=== PATIENT | female | born 1970 | race African-American/Black ===

== ENCOUNTER 2016-03-04 18:47 | Emergency (ER) | payer SELFPAY ==
[~2016-03-04] VITALS: Ht 162.6 cm; Wt 98.0 kg
[~2016-03-04 18:47] MED LIST: CEPH-264 PO; CYCL10TA2 PO; HYDR-971 PO; METR500T PO; ONDA4TAB10 SL; OXYC-323 PO; PANT40TA3 PO; PRED20TA PO; TRAM-29 PO; VENTOLIN HFA18 GM INH
[2016-03-04] MEDS ORDERED: KETOROLAC TROMETHAMINE 60 MG/2 ML SYRINGE. IM ONE (19:30)
[2016-03-04] MEDS ORDERED: ORPHENADRINE CITRATE 60 MG/2 ML VIAL. IM ONE (19:30)
[2016-03-04 19:36] VITALS: BP 148/81
[2016-03-04] MEDS ORDERED: HYDR-971 PO (19:44)
[2016-03-04] MEDS ORDERED: CYCL10TA2 PO (19:44)
--- NOTE | 2016-03-04 19:44 | PHYS DOC ---
Past Medical History Past Medical History: Arthritis, Diabetes-Type II, Hypertension, Other Additional Past Medical Histor: eye problems, back fx, CHRONIC BACK PAIN Past Surgical History: , Tubal ligation Alcohol Use: None Drug Use: None Adult General Chief Complaint Chief Complaint: CHEST PAIN HPI HPI 45-year-old female with history of chronic back pain presents with mid upper back pain. She states it seems worse with movement and deep inspiration. She denies any chest pain or shortness of breath. She's not had any fever chills sweats cough congestion. She denies any nausea vomiting or diaphoresis. She states pain is been going on now for a couple of days. She states currently the pain is moderate in intensity and has been helped mildly with [id number] medication. [] Review of Systems Review of Systems Constitutional: Denies fever or chills [] Eyes: Denies change in visual acuity, redness, or eye pain [] HENT: Denies nasal congestion or sore throat [] Respiratory: Denies cough or shortness of breath [] Cardiovascular: No additional information not addressed in HPI [] GI: Denies abdominal pain, nausea, vomiting, bloody stools or diarrhea [] : Denies dysuria or hematuria [] Musculoskeletal: Per history of present illness [] Integument: Denies rash or skin lesions [] Neurologic: Denies headache, focal weakness or sensory changes [] Endocrine: Denies polyuria or polydipsia [] Current Medications Current Medications Current Medications Medications (Trade) Dose Ordered Sig/[facility] Start Time Stop Time Status Last Admin Dose Admin Ketorolac Tromethamine (Toradol Im) 60 mg 1X ONCE 03/04/16 19:30 03/04/16 19:31 DC 03/04/16 19:32 60 MG Orphenadrine Citrate (Norflex) 60 mg 1X ONCE 03/04/16 19:30 03/04/16 19:31 DC 03/04/16 19:32 60 MG Allergies Allergies Allergies Coded Allergies Type Severity Reaction Last Updated Verified ibuprofen Adverse Reaction Intermediate Nausea 11/07/15 Yes naproxen Adverse Reaction Intermediate Nausea 11/07/15 Yes Physical Exam Physical Exam Constitutional: Well developed, well nourished, no acute distress, non-toxic appearance. [] HENT: Normocephalic, atraumatic, bilateral external ears normal, oropharynx moist, no oral exudates, nose normal. [] Eyes: PERRLA, EOMI, conjunctiva normal, no discharge. [] Neck: Normal range of motion, no tenderness, supple, no stridor. [] Cardiovascular:Heart rate regular rhythm, no murmur [] Lungs & Thorax: Bilateral breath sounds clear to auscultation [] Abdomen: Bowel sounds normal, soft, no tenderness, no masses, no pulsatile masses. [] Skin: Warm, dry, no erythema, no rash. [] Back: Mild mid thoracic paraspinal muscle tenderness no midline tenderness. [] Extremities: No tenderness, no cyanosis, no clubbing, ROM intact, no edema. [] Neurologic: Alert and oriented X 3, normal motor function, normal sensory function, no focal deficits noted. [] Psychologic: Affect normal, judgement normal, mood normal. [] Current Patient Data Vital Signs Vital Signs Date Time Temp Pulse Resp B/P Pulse Ox O2 Delivery O2 Flow Rate FiO2 03/04/16 19:05 98.8 84 22 134/71 96 Room Air 98.8 EKG EKG [EKG: Normal sinus rhythm rate of [address]-T changes] Radiology/Procedures Radiology/Procedures [] Impressions: Chest x-ray: Negative exam mediastinum is normal as and interpreted by me Course & Med Decision Making Course & Med Decision Making Pertinent Labs and Imaging studies reviewed. (See chart for details) [ED course: Evaluation reveals a 45-year-old female in no significant distress with complaint of back pain. She was given Toradol and Norflex during her stay in the department which did help alleviate her symptoms. I will provide her with muscle relaxer and anti-inflammatory to take at home.] Dragon Disclaimer Dragon Disclaimer This electronic medical record was generated, in whole or in part, using a voice recognition dictation system. Departure Departure Impression: Primary Impression: Back pain Disposition: HOME, SELF-CARE Condition: IMPROVED Referrals: SANDEE JARVIS MD (PCP) Patient Instructions: Back Pain, Adult Additional Instructions: Thank you for allowing us to participate in your care today. Followup with your primary care physician in 3 days if your symptoms do not improve. Return to the emergency department you have any new or concerning findings. This should be evaluated by the primary care physician and any necessary consulting services for continued management within a few days after discharge. Return to emergency room if you have any new or concerning symptoms including but not limited to fever, chills, nausea, vomiting, intractable pain, any new rashes, chest pain, shortness of air, uncontrolled bleeding, difficulty breathing, and/or vision loss. You may have been prescribed medication that can change in your level of thinking and ability to operate machinery. These medications include hydrocodone and Ativan. Also, Benadryl has been known to do this as well. Be sure to check with your pharmacist and ask if the medications you've prescribed can affect your level of consciousness. I recommend not operating heavy machinery or driving while on medication such as these. Scripts Hydrocodone/Apap 5-325 ([place] 5-325 Tablet)1 Each Tablet1 Tab PO PRN Q6HRS PRN PAIN #20 TAB Prov:JENNIFER RODRIGUEZ DO 03/04/16 Cyclobenzaprine Hcl 10 Mg Tablet1 Tab PO TID PRN MUSCLE PAIN #30 TAB Prov:JENNIFER RODRIGUEZ DO 03/04/16 Problem Qualifiers Primary Impression: Back pain Back pain location: thoracic back pain Chronicity: acute Back pain laterality: unspecified Qualified Code: M54.6 - Pain in thoracic spine JENNIFER RODRIGUEZ DO Mar 04, 2016 19:44
--- NOTE | 2016-03-05 06:28 | EKG ---
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
--- NOTE | 2016-03-05 08:27 | RAD ---
Indication chest pain. A single view of the chest was obtained. Comparison is made to an examination 11/07/2015. The heart, pulmonary vessels and mediastinum appear normal. The lungs are clear. There has not been a significant change compared to the previous exam. IMPRESSION: No acute or focal process. No significant change
== END 2016-03-04 20:07 | disposition home or self-care (01) ==
LOC: ER 18:47
DX: M54.6 Pain in thoracic spine (principal); G89.29 Other chronic pain; E11.9 Type 2 diabetes mellitus without complications; I10 Essential (primary) hypertension; M19.90 Unspecified osteoarthritis, unspecified site; Z88.8 Allergy status to other drugs, medicaments and biological substances
CPT/HCPCS: 71010; 93005; 96372; 99284; J1885; J2360

== ENCOUNTER 2016-08-09 03:22 | Emergency (ER) | payer SELFPAY ==
[~2016-08-09] VITALS: Ht 162.6 cm; Wt 98.4 kg
[~2016-08-09 03:22] MED LIST changes: -TRAM-29 PO; +TRAM-48 PO
[2016-08-09 03:30] VITALS: BP 171/90
--- NOTE | 2016-08-09 04:50 | PHYS DOC ---
Past Medical History Past Medical History: Arthritis, Diabetes-Type II, Hypertension, Other Additional Past Medical Histor: eye problems, back fx, CHRONIC BACK PAIN Past Surgical History: , Tubal ligation Alcohol Use: None Drug Use: None Adult General Chief Complaint Chief Complaint: LOWER EXT PAIN [facility] HPI Patient is a 46 year old female who presents with gradual onset of right lower extremity pain and swelling involving her entire leg distal to her knee. States she has minimal leg pain in her left lower leg as well, but no swelling. Pain is achy, tight, constant, worse with walking. She denies injury, numbness, tingling, weakness, fever or chills, cough, dyspnea. Review of Systems Review of Systems Constitutional: Denies fever or chills [] Eyes: Denies change in visual acuity, redness, or eye pain [] HENT: Denies nasal congestion or sore throat [] Respiratory: Denies cough or shortness of breath [] Cardiovascular: No additional information not addressed in HPI [] GI: Denies abdominal pain, nausea, vomiting, bloody stools or diarrhea [] : Denies dysuria or hematuria [] Musculoskeletal: Denies back pain [] Integument: Denies rash or skin lesions [] Neurologic: Denies headache, focal weakness or sensory changes [] Endocrine: Denies polyuria or polydipsia [] Allergies Allergies Allergies Coded Allergies Type Severity Reaction Last Updated Verified ibuprofen Adverse Reaction Intermediate Nausea 11/07/15 Yes naproxen Adverse Reaction Intermediate Nausea 11/07/15 Yes Physical Exam Physical Exam Constitutional: Well developed, well nourished, no acute distress, non-toxic appearance. [] HENT: Normocephalic, atraumatic, bilateral external ears normal, oropharynx moist, nose normal. [] Eyes: PERRLA, EOMI. [] Neck: Normal range of motion, supple. [] Cardiovascular:Heart rate regular rhythm [] Lungs & Thorax: Bilateral breath sounds clear to auscultation [] Abdomen: Bowel sounds normal, soft, no tenderness. [] Skin: Warm, dry, no erythema, no rash. [] Back: Normal range of motion. [] Extremities: No joint tenderness, has mild general tenderness of her right leg distal to her knee without visual or palpable abnormality, has minimal tenderness of her left with no visual or palpable abnormality, ROM intact, no edema, no palpable cord. Soft compartments [] Neurologic: Alert and oriented X 3, normal motor function, normal sensory function, no focal deficits noted. [] Psychologic: Affect normal, judgement normal, mood normal. [] Current Patient Data Vital Signs Vital Signs Date Time Temp Pulse Resp B/P (MAP) Pulse Ox O2 Delivery O2 Flow Rate FiO2 08/09/16 03:30 98.3 80 18 171/90 (117) 99 Room Air 98.3 Radiology/Procedures Radiology/Procedures Ultrasound right lower extremity venous Doppler Negative for DVT. Course & Med Decision Making Course & Med Decision Making Pertinent Labs and Imaging studies reviewed. (See chart for details) Workup is unremarkable. Discussed supportive care. Return precautions given. She understands plan. Dragon Disclaimer Dragon Disclaimer This electronic medical record was generated, in whole or in part, using a voice recognition dictation system. Departure Departure Impression: Primary Impression: Leg pain Disposition: HOME, SELF-CARE Condition: STABLE Referrals: SANDEE JARVIS MD (PCP) Patient Instructions: Musculoskeletal Pain Additional Instructions: Take Tylenol as needed for pain. Follow-up with your primary care doctor. Return for any concerns. Problem Qualifiers Primary Impression: Leg pain Laterality: bilateral Qualified Codes: M79.604 - Pain in right leg; M79.605 - Pain in left leg Niranjan WILCOX MD Aug 09, 2016 04:50
--- NOTE | 2016-08-09 05:04 | RAD ---
Ultrasound right lower extremity Indication: Right leg pain for 4 days, no known injury. Technique: Multiple real-time grayscale images were obtained over the right lower extremity with use of color Doppler imaging and spectral analysis. Specifically, evaluation of the common femoral, superficial femoral, popliteal, posterior tibial and greater saphenous veins is performed. Static images were submitted for interpretation. Findings: There is no evidence for deep venous thrombosis. There is normal color fill-in on Doppler images. There is also normal response to compression of the deep venous system. Impression: No evidence for deep venous thrombosis. Electronically signed by: Rica Tafoya MD (08/09/2016 5:00 AM)
[2016-08-09 10:30] LABS: POTASSIUM ISTAT 3.5 mmol/L (3.5-5.0)
== END 2016-08-09 05:09 | disposition home or self-care (01) ==
LOC: ER 03:22
DX: M79.604 Pain in right leg (principal); R22.41 Localized swelling, mass and lump, right lower limb; E11.9 Type 2 diabetes mellitus without complications; I10 Essential (primary) hypertension; M19.90 Unspecified osteoarthritis, unspecified site; G89.29 Other chronic pain; Z98.51 Tubal ligation status; Z98.890 Other specified postprocedural states; Z88.6 Allergy status to analgesic agent
CPT/HCPCS: 80047; 93971; 99284-25

== ENCOUNTER 2016-08-15 06:51 | Emergency (ER) | payer SELFPAY ==
[~2016-08-15] VITALS: Ht 162.6 cm; Wt 98.4 kg
[2016-08-15 06:57] VITALS: BP 189/88
--- NOTE | 2016-08-15 07:14 | PHYS DOC ---
Past Medical History Past Medical History: Arthritis, Diabetes-Type II, Hypertension, Other Additional Past Medical Histor: eye problems, back fx, CHRONIC BACK PAIN Past Surgical History: , Tubal ligation Alcohol Use: None Drug Use: None Adult General Chief Complaint Chief Complaint: LOWER EXT PAIN HPI HPI Patient is a 46 year old female who presents with right corrales pain. Patient states that the ongoing for over a week. She's been seen in our ER and had a negative DVT study, she's been seen by her primary care doctor prescribed steroids. She states she was not compliant with her steroids because "I didn't think it was helping" taken for the last 2 days. She's taken oxycodone for pain if she takes this chronically for her back pain. She's been seen also at this month for low back pain and had an MRI. Patient denies any saddle sensory change, no bowel or bladder incontinence or retention. She states she is allergic to ibuprofen or naproxen because "I throw up". Pain in her corrales is medial aspect, no injury reported, no history DVT. Worsens when she walks on it. She's not attempted any ice. Review of Systems Review of Systems Constitutional: Denies fever or chills [] Eyes: Denies change in visual acuity, redness, or eye pain [] HENT: Denies nasal congestion or sore throat [] Respiratory: Denies cough or shortness of breath [] Cardiovascular: Nice chest pain GI: Denies abdominal pain, nausea, vomiting, bloody stools or diarrhea [] : Denies dysuria or hematuria [] Musculoskeletal: Denies new back pain Integument: Denies rash or skin lesions [] Neurologic: Denies headache, focal weakness or sensory changes [] Current Medications Current Medications Current Medications Medications (Trade) Dose Ordered Sig/[facility] Start Time Stop Time Status Last Admin Dose Admin Fentanyl Citrate (Fentanyl 2ml Vial) 75 mcg 1X ONCE 08/15/16 07:15 08/15/16 07:16 DC 08/15/16 07:39 75 MCG Ketorolac Tromethamine (Toradol Im) 60 mg 1X ONCE 08/15/16 07:15 08/15/16 07:16 DC 08/15/16 07:39 60 MG Allergies Allergies Allergies Coded Allergies Type Severity Reaction Last Updated Verified ibuprofen Adverse Reaction Intermediate Nausea 11/07/15 Yes naproxen Adverse Reaction Intermediate Nausea 9/22/16 Yes Physical Exam Physical Exam Constitutional: Well developed, well nourished, no acute distress, non-toxic appearance. [] HENT: Normocephalic, atraumatic, bilateral external ears normal, oropharynx moist, no oral exudates, nose normal. [] Eyes: PERRLA, EOMI, conjunctiva normal, no discharge. [] Neck: Normal range of motion, no tenderness, supple, no stridor. [] Cardiovascular:Heart rate regular with regular rhythm Lungs & Thorax: No respiratory distress Skin: Warm, dry, no erythema, no rash. [] Back: No tenderness, no CVA tenderness. [] Extremities: Bilateral lower extremities are nonedematous, no tenderness to palpation, no palpable cord, no erythema, no edema, full range of motion, knee has no effusion, no increased warmth, no varus or valgus instability, negative Melani's, negative anterior and posterior drawer, ankle joint appears normal, full range of motion, DP pulse 2+, negative Homans bilaterally Neurologic: Alert and oriented X 3, normal motor function, normal sensory function, no focal deficits noted. [] Current Patient Data Vital Signs Vital Signs Date Time Temp Pulse Resp B/P (MAP) Pulse Ox O2 Delivery O2 Flow Rate FiO2 08/15/16 07:39 18 08/15/16 06:57 98.1 71 98 Room Air 98.1 Lab Values Laboratory Tests Test 08/15/16 07:35 Glucose (Fingerstick) 121 mg/dL (70-99) H EKG EKG [] Radiology/Procedures Radiology/Procedures [] Course & Med Decision Making Course & Med Decision Making Pertinent Labs and Imaging studies reviewed. (See chart for details) Reviewed patient's prior medical records. Patient has symptoms consistent with chin splints, recommended ice packs and anti-inflammatories, although patient thinks she is allergic because she started up before when she's taken. Recommended the patient continue her steroids that were prescribed by primary care doctor and continue follow-up with her PCP. Dragon Disclaimer Dragon Disclaimer This electronic medical record was generated, in whole or in part, using a voice recognition dictation system. Departure Departure Impression: Primary Impression: Corrales splints Disposition: 01 HOME, SELF-CARE Condition: STABLE Referrals: SANDEE JARVIS MD (PCP) Patient Instructions: Corrales Splints JEROME DELA CRUZ MD Aug 15, 2016 07:14
[2016-08-15] MEDS ORDERED: KETOROLAC TROMETHAMINE 60 MG/2 ML INJ. IM ONE (07:15)
[2016-08-15] MEDS ORDERED: fentaNYL PF VIAL 100 MCG/2 ML VIAL IM ONE (07:15)
== END 2016-08-15 08:36 | disposition home or self-care (01) ==
LOC: ER 06:51
DX: M79.604 Pain in right leg (principal); E11.9 Type 2 diabetes mellitus without complications; I10 Essential (primary) hypertension; G89.29 Other chronic pain; M19.90 Unspecified osteoarthritis, unspecified site; Z98.51 Tubal ligation status; Z98.890 Other specified postprocedural states; Z88.6 Allergy status to analgesic agent
CPT/HCPCS: 82962; 96372; 99284; J1885; J3010

== ENCOUNTER 2016-09-24 00:30 | Emergency (ER) | payer BC ==
[~2016-09-24] VITALS: Ht 162.6 cm; Wt 98.4 kg
[2016-09-24 00:59] LABS: BILIRUBIN,URINE NEGATIVE (NEG); GLUCOSE,URINE NEGATIVE (NEG); NITRITE,URINE NEGATIVE (NEG); PROTEIN,URINE NEGATIVE (NEG-TRACE); UROBILINOGEN,URINE 0.2 mg/dL (0.2 mg/dL)
[2016-09-24 01:12] LABS: BACTERIA,URINE FEW /HPF (0-FEW); SQUAMOUS EPITHELIAL CELL,UR MOD /LPF; WBC,URINE OCC /HPF (0-4); YEAST,URINE PRESENT /HPF
[2016-09-24] MEDS ORDERED: KETOROLAC 15 MG/ML VIAL. IV ONE (01:30)
[2016-09-24] MEDS ORDERED: IV NORMAL SALINE 1000ML BAG 1,000 ML IV ONE (01:30)
[2016-09-24] MEDS ORDERED: HYDROmorphone 2 MG/ML VIAL IV ONE (01:30)
[2016-09-24] MEDS ORDERED: ONDANSETRON PF 4 MG/2 ML VIAL. IV ONE (01:30)
[2016-09-24 01:44] LABS: BASO # 0.1 x10^3/uL (0.0-0.2); BASO % 1 % (0-3); EOS % 3 % (0-3); HEMATOCRIT 39.7 % (36.0-47.0); HEMOGLOBIN 13.3 g/dL (12.0-15.5); LYMPH # 4.1 x10^3/uL (1.0-4.8); LYMPH % 44 % (24-48); MEAN CORPUSCULAR HEMOGLOBIN 31 pg (25-35); MEAN CORPUSCULAR HGB CONC 34 g/dL (31-37); MEAN CORPUSCULAR VOLUME 91 fL (79-100); MONO % 7 % (0-9); NEUT % 46 % (31-73); PLATELET COUNT 300 x10^3/uL (140-400); RED BLOOD COUNT 4.35 x10^6/uL (3.50-5.40); RED CELL DISTRIBUTION WIDTH 14.1 % (11.5-14.5); WHITE BLOOD COUNT 9.5 x10^3/uL (4.0-11.0)
[2016-09-24 01:51] LABS: CALCIUM 8.9 mg/dL (8.5-10.1); CREATININE 0.9 mg/dL (0.6-1.0); GFR 80.9; POTASSIUM 3.3 mmol/L (3.5-5.1)
[2016-09-24 01:57] LABS: ALBUMIN 3.5 g/dL (3.4-5.0); ALBUMIN/GLOBULIN RATIO 0.9 (1.0-1.7); TOTAL BILIRUBIN 0.2 mg/dL (0.2-1.0); TOTAL PROTEIN 7.5 g/dL (6.4-8.2)
[2016-09-24 02:10] LABS: NEG OBC UR NEG; POS OBC UR POS
--- NOTE | 2016-09-24 02:41 | RAD ---
INDICATION: right flank and abd pain COMPARISON: None. TECHNIQUE: Axial CT images were obtained through the abdomen and pelvis without intravenous contrast. Limited assessment of solid organ structures and vasculature secondary to lack of intravenous contrast. One or more of the following individualized dose reduction techniques were utilized for this examination: 1. Automated exposure control; 2. Adjustment of the mA and/or kV according to patient size; 3. Use of iterative reconstruction technique. FINDINGS: Abdomen: Chest Base: Sub-4 mm right lung base nodule. Vessels: Moderate calcific atherosclerosis. Liver/Biliary: 10 mm low-attenuation lesion near hepatic dome. Additional left lobe of liver 10 mm low-attenuation lesion. Pancreas: Poor evaluation of pancreas without contrast. Spleen: Normal. Kidneys/Adrenal: 3 mm nonobstructive right renal stone. No hydronephrosis. GI: Colonic diverticulosis. No definite periappendiceal inflammation. No dilated loops of bowel to suggest obstruction. Small fat-containing umbilical hernia. Pelvis: Bladder: No definite adjacent inflammation. There is a possible congenital defect of the T11 vertebral body. Pars defects at L4 with anterolisthesis of L4 on 5 IMPRESSION: 1. No evidence of bowel obstruction, appendicitis or hydronephrosis. There are multiple calcifications within the pelvis but suspect that these are phleboliths rather than ureter stone given lack of more proximal hydronephrosis. 2. Nonobstructive right renal stone. 3. There are couple of low-attenuation liver lesions. This is a commonly seen finding and could be from benign causes such as small cyst or hemangioma but incompletely characterized on CT. If further information is desired focused ultrasound could be obtained to assess whether these are solid or cystic. 4. Sub-4 mm right lung base nodule. 5. The uterus appears enlarged. 6. 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 There is also neural foraminal stenosis at this level. Fleischner Society recommendation for solid lung nodule follow up. (Radiology 2005; 237; 395-400): In a low risk patient: <4mm - No follow up required. >4-6mm- 12 month follow up, if unchanged, no further follow up. >6-8mm- 6-12 month follow up, then at 18-24 months if no change. >8mm- 3, 9, 24 month follow up or consideration of PET/CT. In a high risk patient (history of smoking or other known risk factors): <4mm - 12 month follow up, if unchanged then no further follow up. >4-6mm- 6-12 month follow up, then at 18-24 months if no change. >6-8mm- 3-6 month follow up, then at 9-12 months and 24 months if no change >8mm- Same as for low risk patient. Electronically signed by: Jeancarlos Patel MD (09/24/2016 2:38 AM) [id number]
[2016-09-24 02:49] VITALS: BP 119/74
[2016-09-24] MEDS ORDERED: TRAM-48 PO (02:53)
--- NOTE | 2016-09-24 02:53 | PHYS DOC ---
Past Medical History Past Medical History: Arthritis, Diabetes-Type II, Hypertension, Other Additional Past Medical Histor: eye problems, back fx, CHRONIC BACK PAIN Past Surgical History: , Tubal ligation Alcohol Use: None Drug Use: None Adult General Chief Complaint Chief Complaint: PELVIC PAIN HPI HPI Patient is a 46 year old female who presents to the ER today complaining of pain to the suprapubic region. Patient reports that she's had pain in that area for 3 days now radiating down to her legs and to her back on the right side. Patient denies any fevers shakes chills vomiting diarrhea dysuria or urgency. She does complain of frequency. Patient's last menstrual period was in February 2016. Patient has any vaginal discharge or bleeding. Patient has any cough or URI symptoms. Patient reports approximately 6 PM she ate chicken and broccoli. Patient reports hypertension and diabetes. Patient denies any liver longer kidney problems. Patient reports she smokes no alcohol or drugs. Patient is not allergic to any medications. Patient reports that ibuprofen upsets her stomach. Patient reports she's had a prior . Review of systems: Constitutional: fever andr chills [] Eyes: Denies change in visual acuity, redness, or eye pain [] All other review systems are negative except as documented in the history of present illness portion. Physical exam: Constitutional: Well developed, well nourished, no acute distress, non-toxic appearance. [] HENT: Normocephalic, atraumatic, bilateral external ears normal, oropharynx moist, no oral exudates, nose normal. [] Eyes: PERRLA, EOMI, conjunctiva normal, no discharge. [] Neck: Normal range of motion, no tenderness, supple, no stridor. [] Cardiovascular:Heart rate regular rhythm, Lungs & Thorax: Bilateral breath sounds clear to auscultation [] Abdomen: Bowel sounds normal, soft, no tenderness, no masses, no pulsatile masses. [] Skin: Warm, dry, no erythema, no rash. [] Back: No tenderness, no CVA tenderness. [] Extremities: No tenderness, no cyanosis, no clubbing, ROM intact, no edema. [] Neurologic: Alert and oriented X 3, normal motor function, normal sensory function, no focal deficits noted. [] Psychologic: Affect normal, judgement normal, mood normal. [] Patient's physical exam is significant for some tenderness to palpation to her suprapubic area. Patient is some tenderness in her right and left lower quadrant. Patient has no rebound or guarding.Abdomen soft nontender no rebound or guarding NABS. No Brito sign, no tenderness to McBurney's point. Patient not present with any signs or symptoms of be consistent with an acute surgical abdomen. Patient's ER workup was significant for normal CAT scan. There was no acute pathology to explain her pain. Patient's labs including a CBC CMP and UA were all within normal limits. Patient will be discharged home in stable condition on Ultram and instructed to follow-up with her primary care doctor in 1-2 days for reevaluation. Current Medications Current Medications Current Medications Medications (Trade) Dose Ordered Sig/Isis Start Time Stop Time Status Last Admin Dose Admin Hydromorphone HCl (Dilaudid) 0.5 mg 1X ONCE 09/24/16 01:30 09/24/16 01:32 DC 09/24/16 01:38 0.5 MG Ketorolac Tromethamine (Toradol) 15 mg 1X ONCE 09/24/16 01:30 09/24/16 01:32 DC 09/24/16 01:40 15 MG Ondansetron HCl (Zofran) 4 mg 1X ONCE 09/24/16 01:30 09/24/16 01:32 DC 09/24/16 01:40 4 MG Sodium Chloride 1,000 ml @ 1,000 mls/hr 1X ONCE 09/24/16 01:30 09/24/16 02:29 DC 09/24/16 01:40 1,000 MLS/HR Allergies Allergies Allergies Coded Allergies Type Severity Reaction Last Updated Verified ibuprofen Adverse Reaction Intermediate Nausea 11/07/15 Yes naproxen Adverse Reaction Intermediate Nausea 11/07/15 Yes Current Patient Data Vital Signs Vital Signs Date Time Temp Pulse Resp B/P (MAP) Pulse Ox O2 Delivery O2 Flow Rate FiO2 09/24/16 01:38 18 95 Room Air 09/24/16 00:45 98.4 89 135/65 (88) 98.4 Lab Values Laboratory Tests Test 09/24/16 00:40 09/24/16 01:36 Urine Collection Type Unknown Urine Color Yellow Urine Clarity Clear Urine pH 6.0 Urine Specific [place] 1.010 Urine Protein Negative mg/dL (NEG-TRACE) Urine Glucose (UA) Negative mg/dL (NEG) Urine Ketones (Stick) Negative mg/dL (NEG) Urine Blood Small (NEG) Urine Nitrite Negative (NEG) Urine Bilirubin Negative (NEG) Urine Urobilinogen Dipstick 0.2 mg/dL (0.2 mg/dL) Urine Leukocyte Esterase Negative (NEG) Urine RBC 6-10 /HPF (0-2) Urine WBC Occ /HPF (0-4) Urine Squamous Epithelial Cells Mod /LPF Urine Bacteria Few /HPF (0-FEW) Urine Mucus Slight /LPF Urine Yeast Present /HPF Urine Test Negative (NEG) White Blood Count 9.5 x10^3/uL (4.0-11.0) Red Blood Count 4.35 x10^6/uL (3.50-5.40) Hemoglobin 13.3 g/dL (12.0-15.5) Hematocrit 39.7 % (36.0-47.0) Mean Corpuscular Volume 91 fL (79-100) Mean Corpuscular Hemoglobin 31 pg (25-35) Mean Corpuscular Hemoglobin Concent 34 g/dL (31-37) Red Cell Distribution Width 14.1 % (11.5-14.5) Platelet Count 300 x10^3/uL (140-400) Neutrophils (%) (Auto) 46 % (31-73) Lymphocytes (%) (Auto) 44 % (24-48) Monocytes (%) (Auto) 7 % (0-9) Eosinophils (%) (Auto) 3 % (0-3) Basophils (%) (Auto) 1 % (0-3) Neutrophils # (Auto) 4.4 x10^3uL (1.8-7.7) Lymphocytes # (Auto) 4.1 x10^3/uL (1.0-4.8) Monocytes # (Auto) 0.6 x10^3/uL (0.0-1.1) Eosinophils # (Auto) 0.2 x10^3/uL (0.0-0.7) Basophils # (Auto) 0.1 x10^3/uL (0.0-0.2) Sodium Level 139 mmol/L (136-145) Potassium Level 3.3 mmol/L (3.5-5.1) L Chloride Level 103 mmol/L (98-107) Carbon Dioxide Level 27 mmol/L (21-32) Anion Gap 9 (6-14) Blood Urea Nitrogen 7 mg/dL (7-20) Creatinine 0.9 mg/dL (0.6-1.0) Estimated GFR (Cockcroft-Gault) 80.9 BUN/Creatinine Ratio 8 (6-20) Glucose Level 108 mg/dL (70-99) H Calcium Level 8.9 mg/dL (8.5-10.1) Total Bilirubin 0.2 mg/dL (0.2-1.0) Aspartate Amino Transferase (AST) 20 U/L (15-37) Alanine Aminotransferase (ALT) 24 U/L (14-59) Alkaline Phosphatase 52 U/L (46-116) Total Protein 7.5 g/dL (6.4-8.2) Albumin 3.5 g/dL (3.4-5.0) Albumin/Globulin Ratio 0.9 (1.0-1.7) L Lipase 49 U/L (73-393) L Laboratory Tests 09/24/16 01:36 Laboratory Tests 09/24/16 01:36 EKG EKG [] Radiology/Procedures Radiology/Procedures [] Course & Med Decision Making Course & Med Decision Making Pertinent Labs and Imaging studies reviewed. (See chart for details) [] Dragon Disclaimer Dragon Disclaimer This electronic medical record was generated, in whole or in part, using a voice recognition dictation system. Departure Departure Impression: Primary Impression: Abdominal pain Disposition: 01 HOME, SELF-CARE Condition: IMPROVED Referrals: UNKNOWN PCP NAME (PCP) Patient Instructions: Abdominal Pain (Nonspecific) Scripts Tramadol Hcl (ULTRAM) 50 Mg Tablet 1 TAB PO Q6HRS, #10 TAB Prov: SAL COLES MD 09/24/16 SAL COLES MD Sep 24, 2016 02:53
== END 2016-09-24 03:08 | disposition home or self-care (01) ==
LOC: ER 00:30
DX: R10.31 Right lower quadrant pain (principal); R10.32 Left lower quadrant pain; R35.0 Frequency of micturition; M19.90 Unspecified osteoarthritis, unspecified site; E11.9 Type 2 diabetes mellitus without complications; I10 Essential (primary) hypertension; G89.29 Other chronic pain; F17.200 Nicotine dependence, unspecified, uncomplicated; Z88.6 Allergy status to analgesic agent; Z88.8 Allergy status to other drugs, medicaments and biological substances; Z98.890 Other specified postprocedural states; Z98.51 Tubal ligation status
CPT/HCPCS: 36415; 74176; 80053; 81001; 81025; 83690; 85027; 96361; 96374; 96375; 99285; J1170; J1885; J2405; J7030

== ENCOUNTER 2016-12-29 22:55 | Emergency (ER) | payer BC ==
[~2016-12-29] VITALS: Ht 162.6 cm; Wt 95.3 kg
[2016-12-29 23:17] VITALS: BP 139/77
[2016-12-29] MEDS ORDERED: SULF1TAB24 PO (23:40)
--- NOTE | 2016-12-29 23:40 | PHYS DOC ---
Past Medical History Past Medical History: Arthritis, Diabetes-Type II, Hypertension, Other Additional Past Medical Histor: eye problems, back fx, CHRONIC BACK PAIN Past Surgical History: , Tubal ligation Alcohol Use: None Drug Use: None Adult General Chief Complaint Chief Complaint: NOSE FOREIGN BODY HPI HPI Patient is a 46 year old female who presents here today complaining of pain in her left nostril. Patient is concerned about might have crawled up there. Patient reports that she has swelling to her left nasolabial fold times one day. Patient has a history of hypertension diabetes. Patient denies any other symptomatology. Patient denies any fevers shakes chills nausea vomiting diarrhea chest pain shortness of breath cough cold rhinorrhea. Patient reports she has an allergy to ibuprofen and Naprosyn. Patient per she smokes no alcohol or drugs. Review of systems: Constitutional: Denies fever or chills Eyes: Denies change in visual acuity, redness, or eye pain HENT: Denies nasal congestion or sore throat All other systems were reviewed and found to be within normal limits, except as documented in this note. Physical exam: Constitutional: Well developed, well nourished, no acute distress, non-toxic appearance. HENT: Normocephalic, atraumatic, bilateral external ears normal Eyes: PERRLA, EOMI, conjunctiva normal, no discharge. Neck: Normal range of motion, no tenderness, supple, no stridor. Cardiovascular:Heart rate regular rhythm Lungs & Thorax: Bilateral breath sounds clear to auscultation Abdomen: Bowel sounds normal, soft, no tenderness, no masses, no pulsatile masses. Skin: Warm, dry, no erythema, no rash. Back: No tenderness, no CVA tenderness. Extremities: No tenderness, no cyanosis, no clubbing, ROM intact, no edema. Neurologic: Alert and oriented X 3, normal motor function, normal sensory function, no focal deficits noted. Psychologic: Affect normal, judgement normal, mood normal. Assessment and plan: 46-year-old female with foreign body sensation to her left naris. Patient's left naris was unremarkable. There is some mild erythema and possible soft tissue swelling to the lateral aspect of her left naris. There is no fluctuance or abscess that I can visualize. Patient's symptoms are highly consistent with a possible small microabscesses/cellulitis to her inner mucosa of her left naris. Patient be started on Bactrim for possible MRSA. Current Medications Current Medications Current Medications Medications (Trade) Dose Ordered Sig/Isis Start Time Stop Time Status Last Admin Dose Admin Trimethoprim/ Sulfamethoxazole (Bactrim Ds) 2 tab 1X ONCE 12/30/16 00:00 12/30/16 00:01 DC 12/30/16 00:02 2 TAB Allergies Allergies Allergies Coded Allergies Type Severity Reaction Last Updated Verified ibuprofen Adverse Reaction Intermediate Nausea 11/07/15 Yes naproxen Adverse Reaction Intermediate Nausea 11/07/15 Yes Current Patient Data Vital Signs Vital Signs Date Time Temp Pulse Resp B/P (MAP) Pulse Ox O2 Delivery O2 Flow Rate FiO2 12/29/16 23:17 98.3 94 18 139/77 (97) 96 Room Air 98.3 EKG EKG [] Radiology/Procedures Radiology/Procedures [] Course & Med Decision Making Course & Med Decision Making Pertinent Labs and Imaging studies reviewed. (See chart for details) [] Dragon Disclaimer Dragon Disclaimer This electronic medical record was generated, in whole or in part, using a voice recognition dictation system. Departure Departure Impression: Primary Impression: Cellulitis Disposition: HOME, SELF-CARE Condition: IMPROVED Referrals: LYNN DE LEON MD (PCP) Patient Instructions: Skin Infections Scripts Sulfamethoxazole/Trimethoprim (BACTRIM DS TABLET) 1 Each Tablet 2 TAB PO BID for 10 Days, TAB Prov: SAL COLES MD 12/29/16 SAL COLES MD Dec 29, 2016 23:40
[2016-12-30] MEDS ORDERED: SMZ/TMP 800/160MG TABLET. PO ONE
== END 2016-12-30 00:10 | disposition home or self-care (01) ==
LOC: ER 22:55
DX: J34.0 Abscess, furuncle and carbuncle of nose (principal); G89.29 Other chronic pain; E11.9 Type 2 diabetes mellitus without complications; I10 Essential (primary) hypertension; Z88.5 Allergy status to narcotic agent; Z88.8 Allergy status to other drugs, medicaments and biological substances
CPT/HCPCS: 99283

== ENCOUNTER 2017-02-21 21:48 | Emergency (ER) | payer OTHER, BC ==
[2017-02-21] MEDS: ONDANSETRON ODT 4 MG TAB.RAPDIS. PO (23:02)
[2017-02-21 23:03] LABS: INFLUENZA A PATIENT NEGATIVE (NEGATIVE); INFLUENZA B PATIENT NEGATIVE (NEGATIVE); OBC FLU VALID
[2017-02-21] MEDS: BENZONATATE 100 MG CAPSULE. PO (23:03)
[2017-02-21] MEDS: ACETAMINOPHEN 500 MG TABLET PO (23:03)
== END 2017-02-21 23:30 | disposition home or self-care (01) ==
LOC: ER 21:48
DX: B34.9 Viral infection, unspecified (principal); J40 Bronchitis, not specified as acute or chronic; E11.9 Type 2 diabetes mellitus without complications; I10 Essential (primary) hypertension; G89.29 Other chronic pain; F17.210 Nicotine dependence, cigarettes, uncomplicated; Z88.6 Allergy status to analgesic agent
CPT/HCPCS: 87804; 87804-59; 99284; Q0162

== ENCOUNTER 2017-03-03 07:11 | Emergency (ER) | payer SELFPAY, OTHER | END 2017-03-03 07:57 | disposition home or self-care (01) | LOC: ER 07:11 | DX: S10.96XA Insect bite of unspecified part of neck, initial encounter (principal); E11.40 Type 2 diabetes mellitus with diabetic neuropathy, unspecified; I10 Essential (primary) hypertension; F17.210 Nicotine dependence, cigarettes, uncomplicated; Z88.6 Allergy status to analgesic agent; W57.XXXA Bitten or stung by nonvenomous insect and other nonvenomous arthropods, initial encounter; Y93.89 Activity, other specified; Y92.89 Other specified places as the place of occurrence of the external cause; Y99.8 Other external cause status | CPT/HCPCS: 99281 ==

== ENCOUNTER 2017-03-20 17:41 | Emergency (ER) | payer OTHER ==
[2017-03-20] MEDS: ACETAMINOPHEN 500 MG TABLET PO ×2 (18:35)
== END 2017-03-20 19:03 | disposition home or self-care (01) ==
LOC: ER 17:41
DX: S60.222A Contusion of left hand, initial encounter (principal); M54.6 Pain in thoracic spine; E11.40 Type 2 diabetes mellitus with diabetic neuropathy, unspecified; I10 Essential (primary) hypertension; Z88.6 Allergy status to analgesic agent; V47.5XXA Car driver injured in collision with fixed or stationary object in traffic accident, initial encounter; Y93.I9 Activity, other involving external motion; Y92.410 Unspecified street and highway as the place of occurrence of the external cause; Y99.8 Other external cause status
CPT/HCPCS: 72072; 73130; 99284

== ENCOUNTER 2017-07-04 12:10 | Emergency (ER) | payer OTHER ==
[2017-07-04] MEDS: ASPIRIN CHEWABLE 81 MG TABLET. PO (12:55)
[2017-07-04 13:14] LABS: ADD MAN DIFF? NO
[2017-07-04 13:26] LABS: BASO % 0 % (0-3); EOS # 0.1 x10^3/uL (0.0-0.7); EOS % 1 % (0-3); HEMATOCRIT 42.3 % (36.0-47.0); HEMOGLOBIN 14.8 g/dL (12.0-15.5); LYMPH # 2.5 x10^3/uL (1.0-4.8); LYMPH % 33 % (24-48); MEAN CORPUSCULAR HEMOGLOBIN 32 pg (25-35); MEAN CORPUSCULAR HGB CONC 35 g/dL (31-37); MEAN CORPUSCULAR VOLUME 91 fL (79-100); MONO # 0.4 x10^3/uL (0.0-1.1); MONO % 6 % (0-9); NEUT # 4.4 x10^3uL (1.8-7.7); NEUT % 59 % (31-73); PLATELET COUNT 311 x10^3/uL (140-400); RED BLOOD COUNT 4.65 x10^6/uL (3.50-5.40); RED CELL DISTRIBUTION WIDTH 13.9 % (11.5-14.5); WHITE BLOOD COUNT 7.4 x10^3/uL (4.0-11.0)
[2017-07-04 13:33] LABS: ANION GAP 9 (6-14); BLOOD UREA NITROGEN 8 mg/dL (7-20); BUN/CREATININE RATIO 9 (6-20); CALCIUM 9.5 mg/dL (8.5-10.1); CARBON DIOXIDE 27 mmol/L (21-32); CHLORIDE 106 mmol/L (98-107); CREATININE 0.9 mg/dL (0.6-1.0); GFR 80.5; GLUCOSE 106 mg/dL (70-99); POTASSIUM 3.7 mmol/L (3.5-5.1); SODIUM 142 mmol/L (136-145)
[2017-07-04 13:39] LABS: ALBUMIN 3.6 g/dL (3.4-5.0); ALBUMIN/GLOBULIN RATIO 0.9 (1.0-1.7); ALK PHOS 61 U/L (46-116); ALT (SGPT) 18 U/L (14-59); AST (SGOT) 16 U/L (15-37); TOTAL BILIRUBIN 0.3 mg/dL (0.2-1.0); TOTAL PROTEIN 7.6 g/dL (6.4-8.2)
[2017-07-04 13:42] LABS: TROPONINI < 0.017 ng/mL (0.000-0.055)
== END 2017-07-04 14:10 | disposition home or self-care (01) ==
LOC: ER 12:10
DX: R07.89 Other chest pain (principal); M79.632 Pain in left forearm; G89.29 Other chronic pain; E11.40 Type 2 diabetes mellitus with diabetic neuropathy, unspecified; I10 Essential (primary) hypertension; F17.210 Nicotine dependence, cigarettes, uncomplicated; F12.10 Cannabis abuse, uncomplicated; Z79.82 Long term (current) use of aspirin; Z88.5 Allergy status to narcotic agent; Z88.8 Allergy status to other drugs, medicaments and biological substances
CPT/HCPCS: 36415; 71045; 80053; 84484; 85025; 93005; 99285

== ENCOUNTER 2017-08-07 23:29 | Emergency (ER) | payer OTHER ==
[2017-08-08] MEDS: BUPIVACAINE 0.5% 50 ML VIAL. IJ (00:30)
[2017-08-08] MEDS: LIDOCAINE 1% PF 30 ML VIAL. INJ (00:30)
== END 2017-08-08 00:55 | disposition home or self-care (01) ==
LOC: ER 23:29
DX: K08.89 Other specified disorders of teeth and supporting structures (principal); E78.00 Pure hypercholesterolemia, unspecified; I10 Essential (primary) hypertension; E11.40 Type 2 diabetes mellitus with diabetic neuropathy, unspecified; F12.10 Cannabis abuse, uncomplicated; G89.29 Other chronic pain; Z88.5 Allergy status to narcotic agent; Z88.8 Allergy status to other drugs, medicaments and biological substances
CPT/HCPCS: 64450; 99284-25; J3490

== ENCOUNTER 2017-10-18 04:45 | Emergency (ER) | payer OTHER ==
[~2017-10-18] VITALS: Ht 162.6 cm; Wt 83.9 kg
[~2017-10-18 04:45] MED LIST changes: +ACET-704 PO; +BENZ100C PO; +DOXY100T PO; +SULF1TAB24 PO
--- NOTE | 2017-10-18 05:13 | PHYS DOC ---
Past Medical History Past Medical History: Diabetes-Type II, High Cholesterol, Hypertension Additional Past Medical Histor: NEUROPATHY, chronic back pain, SLEEP APNEA Past Surgical History: Alcohol Use: Occasionally Drug Use: Marijuana Adult General Chief Complaint Chief Complaint: WEAKNESS/GENERALIZED HPI HPI Patient is a 47-year-old female who presents tonight secondary to generalized weakness. Patient states that her diabetes is acting up. She states when her blood sugar gets down to 99 she doesn't feel well. She has had some nausea but no vomiting. She denies any fever chills or sweats. She readily admits that she does not control her blood sugar or even know what her hemoglobin A1c is at this time. This causes her to get very nervous. She is also concerned that her blood pressure is elevated. She denies any headache or lateralizing neurologic weakness.[] Review of Systems Review of Systems Constitutional: Denies fever or chills, reports generalized weakness [] Eyes: Denies change in visual acuity, redness, or eye pain [] HENT: Denies nasal congestion or sore throat [] Respiratory: Denies cough or shortness of breath [] Cardiovascular: No additional information not addressed in HPI [] GI: Denies abdominal pain, nausea, vomiting, bloody stools or diarrhea [] : Denies dysuria or hematuria [] Musculoskeletal: Denies back pain or joint pain [] Integument: Denies rash or skin lesions [] Neurologic: Denies headache, focal weakness or sensory changes [] Endocrine: Poorly controlled diabetes[] All other systems were reviewed and found to be within normal limits, except as documented in this note. Current Medications Current Medications Current Medications Medications (Trade) Dose Ordered Sig/Isis Start Time Stop Time Status Last Admin Dose Admin Potassium Chloride (KCl Oral Soln) 40 meq 1X ONCE 10/18/17 07:00 10/18/17 07:01 Allergies Allergies Allergies Coded Allergies Type Severity Reaction Last Updated Verified ibuprofen Adverse Reaction Intermediate Nausea 11/07/15 Yes naproxen Adverse Reaction Intermediate Nausea 11/07/15 Yes Physical Exam Physical Exam Constitutional: Well developed, well nourished, no acute distress, non-toxic appearance. [] HENT: Normocephalic, atraumatic, bilateral external ears normal, oropharynx moist, no oral exudates, nose normal. [] Eyes: PERRLA, EOMI, conjunctiva normal, no discharge. [] Neck: Normal range of motion, no tenderness, supple, no stridor. [] Cardiovascular:Heart rate regular rhythm, no murmur [] Lungs & Thorax: Bilateral breath sounds clear to auscultation [] Abdomen: Bowel sounds normal, soft, no tenderness, no masses, no pulsatile masses. [] Skin: Warm, dry, no erythema, no rash. [] Back: No tenderness, no CVA tenderness. [] Extremities: No tenderness, no cyanosis, no clubbing, ROM intact, no edema. [] Neurologic: Alert and oriented X 3, normal motor function, normal sensory function, no focal deficits noted. [] Psychologic: Very flat affect. [] Current Patient Data Vital Signs Vital Signs Date Time Temp Pulse Resp B/P (MAP) Pulse Ox O2 Delivery O2 Flow Rate FiO2 10/18/17 04:45 97.7 63 18 165/79 (107) 98 Room Air 97.7 Lab Values Laboratory Tests Test 10/18/17 05:13 10/18/17 05:30 Glucose (Fingerstick) 126 mg/dL (70-99) H White Blood Count 6.1 x10^3/uL (4.0-11.0) Red Blood Count 4.71 x10^6/uL (3.50-5.40) Hemoglobin 15.0 g/dL (12.0-15.5) Hematocrit 44.0 % (36.0-47.0) Mean Corpuscular Volume 93 fL (79-100) Mean Corpuscular Hemoglobin 32 pg (25-35) Mean Corpuscular Hemoglobin Concent 34 g/dL (31-37) Red Cell Distribution Width 14.2 % (11.5-14.5) Platelet Count 279 x10^3/uL (140-400) Neutrophils (%) (Auto) 43 % (31-73) Lymphocytes (%) (Auto) 49 % (24-48) H Monocytes (%) (Auto) 6 % (0-9) Eosinophils (%) (Auto) 2 % (0-3) Basophils (%) (Auto) 0 % (0-3) Neutrophils # (Auto) 2.6 x10^3uL (1.8-7.7) Lymphocytes # (Auto) 3.0 x10^3/uL (1.0-4.8) Monocytes # (Auto) 0.4 x10^3/uL (0.0-1.1) Eosinophils # (Auto) 0.1 x10^3/uL (0.0-0.7) Basophils # (Auto) 0.0 x10^3/uL (0.0-0.2) Sodium Level 139 mmol/L (136-145) Potassium Level 3.0 mmol/L (3.5-5.1) L Chloride Level 104 mmol/L (98-107) Carbon Dioxide Level 26 mmol/L (21-32) Anion Gap 9 (6-14) Blood Urea Nitrogen 7 mg/dL (7-20) Creatinine 0.9 mg/dL (0.6-1.0) Estimated GFR (Cockcroft-Gault) 80.5 Glucose Level 123 mg/dL (70-99) H Calcium Level 9.0 mg/dL (8.5-10.1) Laboratory Tests 10/18/17 05:30 Laboratory Tests 10/18/17 05:30 EKG EKG EKG: Normal sinus rhythm rate of [address]-T changes] Radiology/Procedures Radiology/Procedures [] Course & Med Decision Making Course & Med Decision Making Pertinent Labs and Imaging studies reviewed. (See chart for details) 06:00: I assumed care of this patient from Dr. Tracey. Labs pending. 06:40: No acute findings on lab panel. Patient currently sleeping and with no distress. Potassium noted to be mildly low. PO replacement given. Patient d/c 'd to home. Encouraged to f/u with her PCP or return to the ER for any new or worsening symptoms. Jenny Disclaimer Dragon Disclaimer This electronic medical record was generated, in whole or in part, using a voice recognition dictation system. Departure Departure Referrals: LYNN DE LEON MD (PCP) JENNIFER RODRIGUEZ DO Oct 18, 2017 05:13 YAMIL LOPEZ DO Oct 18, 2017 06:45
[2017-10-18 06:02] LABS: BASO % 0 % (0-3); EOS # 0.1 x10^3/uL (0.0-0.7); EOS % 2 % (0-3); LYMPH % 49 % (24-48); MEAN CORPUSCULAR HEMOGLOBIN 32 pg (25-35); MEAN CORPUSCULAR HGB CONC 34 g/dL (31-37); MEAN CORPUSCULAR VOLUME 93 fL (79-100); MONO # 0.4 x10^3/uL (0.0-1.1); MONO % 6 % (0-9); NEUT # 2.6 x10^3uL (1.8-7.7); NEUT % 43 % (31-73); PLATELET COUNT 279 x10^3/uL (140-400); RED BLOOD COUNT 4.71 x10^6/uL (3.50-5.40); RED CELL DISTRIBUTION WIDTH 14.2 % (11.5-14.5); WHITE BLOOD COUNT 6.1 x10^3/uL (4.0-11.0)
[2017-10-18 06:10] LABS: CREATININE 0.9 mg/dL (0.6-1.0); GFR 80.5
[2017-10-18 06:35] VITALS: BP 127/65
[2017-10-18] MEDS ORDERED: POTASSIUM CHLORIDE 20 MEQ/15 ML ORAL LIQUID. PO ONE (07:00)
--- NOTE | 2017-10-18 09:18 | EKG ---
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
== END 2017-10-18 06:44 | disposition home or self-care (01) ==
LOC: ER 04:45
DX: E87.6 Hypokalemia (principal); R53.1 Weakness; R11.0 Nausea; E11.40 Type 2 diabetes mellitus with diabetic neuropathy, unspecified; E78.00 Pure hypercholesterolemia, unspecified; I10 Essential (primary) hypertension; G89.29 Other chronic pain; Z88.5 Allergy status to narcotic agent; Z88.8 Allergy status to other drugs, medicaments and biological substances
CPT/HCPCS: 36415; 80048; 82962; 85025; 93005; 99285-25

== ENCOUNTER → 2017-12-06 | Emergency (ER) | payer OTHER ==
[~2017-12-06] VITALS: Ht 162.6 cm; Wt 88.5 kg
[~2017-12-06] MED LIST changes: +HYDR25TA PO
--- NOTE | 2017-12-06 03:25 | PHYS DOC ---
Past Medical History Past Medical History: Diabetes-Type II Additional Past Medical Histor: NEUROPATHY, chronic back pain, SLEEP APNEA Past Surgical History: No Surgical History Alcohol Use: None Drug Use: None Adult General Chief Complaint Chief Complaint: NAUSEA/VOMITING/DIARRHA HPI HPI Patient is a 47 year old female who presents with anxiety attack. Patient states she feels like she is having some difficulty breathing. She reports, "this is typical for my anxiety." She denies chest pain. Patient states she has been under a lot of stress lately due to family and social situations. She denies feeling suicidal. She does endorse that she has had to come to the ER previously and was given some sort of medicine and her vein that relieved her symptoms. Of note, her vital signs are stable on the monitor. She is not on oxygen and has not oxygen requirement. Her heart rate is normal. Review of Systems Review of Systems Constitutional: Denies fever or chills Eyes: Denies change in visual acuity, redness, or eye pain HENT: Denies nasal congestion or sore throat Respiratory: Denies cough or shortness of breath Cardiovascular: No additional information not addressed in HPI GI: Denies abdominal pain : Denies dysuria or hematuria Musculoskeletal: Denies back pain Integument: Denies rash or skin lesions Neurologic: Denies headache, focal neuro complaints All other systems were reviewed and found to be within normal limits, except as documented in this note. Current Medications Current Medications Current Medications Medications (Trade) Dose Ordered Sig/Isis Start Time Stop Time Status Last Admin Dose Admin Lorazepam (Ativan) 0.5 mg 1X ONCE 12/06/17 03:30 12/06/17 03:31 DC 12/06/17 03:30 0.5 MG Allergies Allergies Allergies Coded Allergies Type Severity Reaction Last Updated Verified ibuprofen Adverse Reaction Intermediate Nausea 11/07/15 Yes naproxen Adverse Reaction Intermediate Nausea 11/07/15 Yes Physical Exam Physical Exam Constitutional: Well developed, well nourished, no acute distress HENT: Normocephalic, atraumatic, bilateral external ears normal, oropharynx moist Eyes: PERRLA, EOMI Neck: Normal range of motion Cardiovascular:Heart rate regular rhythm, no murmur Lungs & Thorax: Bilateral breath sounds clear to auscultation Skin: Warm, dry, no erythema, no rash Neurologic: Alert and oriented X 3 Psychologic: Affect is anxious and tearful at times. not suicidal Current Patient Data Vital Signs Vital Signs Date Time Temp Pulse Resp B/P (MAP) Pulse Ox O2 Delivery O2 Flow Rate FiO2 12/06/17 02:48 97.3 65 18 149/72 (97) 100 Room Air 97.3 Lab Values Laboratory Tests Test 12/06/17 02:50 12/06/17 03:17 Troponin I Quantitative < 0.017 ng/mL (0.000-0.055) Glucose (Fingerstick) 109 mg/dL (70-99) H EKG EKG No STEMI Interpretation Time: 03:10 Radiology/Procedures Radiology/Procedures [] Course & Med Decision Making Course & Med Decision Making Pertinent Labs and Imaging studies reviewed. (See chart for details) patient is seen and examined. presents with what she describes to be a typical anxiety/panic attack for her. Normal vitals. Lungs CTA. Normal exam. IV ativan ordered for sx relief 04:20: Patient currently sleeping. She does arouse easily. She feels subjectively improved. Troponin is negative. EKG is normal. Plan today is for discharge home. She is provided a prescription for hydroxyzine to use as needed for anxiety symptoms. She is encouraged to follow-up with her primary care doctor or return to the ER for any new or worsening symptoms.. Dragon Disclaimer Dragon Disclaimer This electronic medical record was generated, in whole or in part, using a voice recognition dictation system. Departure Departure Referrals: LYNN DE LEON MD (PCP) Scripts Hydroxyzine Hcl (HYDROXYZINE HCL) 25 Mg Tablet 1 TAB PO TID for anxiety, #15 TAB Prov: YAMIL LOPEZ DO 12/06/17 YAMIL LOPEZ DO Dec 06, 2017 03:25
--- NOTE | 2017-12-06 03:52 | EKG ---
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
[2017-12-06 04:32] VITALS: BP 138/74
== END ==
LOC: ER 02:39
DX: F41.9 Anxiety disorder, unspecified (principal); G89.29 Other chronic pain; E11.40 Type 2 diabetes mellitus with diabetic neuropathy, unspecified; Z88.5 Allergy status to narcotic agent; Z88.8 Allergy status to other drugs, medicaments and biological substances
CPT/HCPCS: 36415; 82962; 84484; 93005; 96374; 99285; J2060

== ENCOUNTER 2018-02-09 16:19 | Emergency (ER) | payer OTHER ==
[~2018-02-09] VITALS: Ht 162.6 cm; Wt 86.2 kg
[~2018-02-09 16:19] MED LIST changes: +HYDR-3164 PO; -HYDR-971 PO; -OXYC-323 PO; +OXYC1TAB15 PO
[2018-02-09] MEDS ORDERED: ONDANSETRON PF 4 MG/2 ML VIAL. IV ONE (17:00)
[2018-02-09] MEDS ORDERED: DICYCLOMINE HCL 10 MG CAPSULE PO ONE (17:00)
[2018-02-09] MEDS ORDERED: IV NORMAL SALINE 1000ML BAG 1,000 ML IV ONE (17:00)
[2018-02-09] MEDS ORDERED: FAMOTIDINE 20 MG/2 ML VIAL IVP ONE (17:00)
[2018-02-09 17:09] LABS: BASO % 0 % (0-3); EOS % 1 % (0-3); HEMATOCRIT 40.1 % (36.0-47.0); HEMOGLOBIN 13.6 g/dL (12.0-15.5); LYMPH % 38 % (24-48); MEAN CORPUSCULAR HEMOGLOBIN 31 pg (25-35); MEAN CORPUSCULAR HGB CONC 34 g/dL (31-37); MEAN CORPUSCULAR VOLUME 92 fL (79-100); MONO # 0.3 x10^3/uL (0.0-1.1); MONO % 6 % (0-9); NEUT # 2.8 x10^3uL (1.8-7.7); NEUT % 55 % (31-73); PLATELET COUNT 310 x10^3/uL (140-400); RED BLOOD COUNT 4.37 x10^6/uL (3.50-5.40); RED CELL DISTRIBUTION WIDTH 14.5 % (11.5-14.5); WHITE BLOOD COUNT 5.2 x10^3/uL (4.0-11.0)
[2018-02-09 17:12] LABS: BILIRUBIN,URINE NEGATIVE (NEG); CLARITY,URINE TURBID; COLOR,URINE YELLOW; NITRITE,URINE NEGATIVE (NEG); PH,URINE 8.5; PROTEIN,URINE NEGATIVE (NEG-TRACE); UROBILINOGEN,URINE 0.2 mg/dL (0.2 mg/dL)
[2018-02-09 17:17] LABS: CALCIUM 9.5 mg/dL (8.5-10.1); CREATININE 0.9 mg/dL (0.6-1.0); GFR 80.5; POTASSIUM 3.7 mmol/L (3.5-5.1)
[2018-02-09 17:23] LABS: ALBUMIN 3.7 g/dL (3.4-5.0); ALBUMIN/GLOBULIN RATIO 0.9 (1.0-1.7); TOTAL BILIRUBIN 0.3 mg/dL (0.2-1.0); TOTAL PROTEIN 7.9 g/dL (6.4-8.2)
[2018-02-09 17:25] LABS: AMORPHOUS SEDIMENT,UR PRESENT /HPF; BACTERIA,URINE FEW /HPF (0-FEW); RBC,URINE OCC /HPF (0-2); SQUAMOUS EPITHELIAL CELL,UR MOD /LPF; WBC,URINE OCC /HPF (0-4)
[2018-02-09 17:36] LABS: BARBITURATES NEG (NEG); BENZODIAZEPINES NEG (NEG); CANNABINOIDS POS (NEG); COCAINE NEG (NEG); METHADONE NEG (NEG); OPIATES NEG (NEG); PHENCYCLIDINE NEG (NEG)
[2018-02-09 17:37] LABS: AMPHETAMINE/METHAMPHETAMINE NEG (NEG)
[2018-02-09 17:50] VITALS: BP 126/77
--- NOTE | 2018-02-09 18:14 | PHYS DOC ---
Past Medical History Past Medical History: Anxiety, Diabetes-Type II, Hypertension Additional Past Medical Histor: NEUROPATHY, chronic back pain, SLEEP APNEA Past Surgical History: Tubal ligation Alcohol Use: Occasionally Drug Use: Marijuana Adult General Chief Complaint Chief Complaint: ABDOMINAL PAIN HPI HPI Patient is a 47 year old female with history of anxiety, hypertension, diabetes type 2, who presents today complaining of vomiting. Patient states the vomiting began this afternoon after she drank Kyle-Aid that was prepared by the boyfriend. She states the boyfriend could've put something in the Kyle-Aid that made her to start vomiting. Patient denies any abdominal pain or diarrhea. Denies any fever. She goes father to state she has history of anxiety and she used to be on Xanax , she states her own primary care doctor will not give her any more Xanax because she is already on hydrocodone and he does not want her taking both medications. Patient denies any suicidal or homicidal ideations. PCP Review of Systems Review of Systems Constitutional: Denies fever or chills [] Eyes: Denies change in visual acuity, redness, or eye pain [] HENT: Denies nasal congestion or sore throat [] Respiratory: Denies cough or shortness of breath [] Cardiovascular: No additional information not addressed in HPI [] GI: Reports vomiting. Denies abdominal pain, nausea, bloody stools or diarrhea [] : Denies dysuria or hematuria [] Musculoskeletal: Denies back pain or joint pain [] Integument: Denies rash or skin lesions [] Neurologic: Denies headache, focal weakness or sensory changes [] Psych: Reports anxiety All other systems were reviewed and found to be within normal limits, except as documented in this note. Current Medications Current Medications Current Medications Medications (Trade) Dose Ordered Sig/Isis Start Time Stop Time Status Last Admin Dose Admin Dicyclomine HCl (Bentyl) 20 mg 1X ONCE 02/09/18 17:00 02/09/18 17:01 DC 02/09/18 17:48 20 MG Famotidine (Pepcid Vial) 20 mg 1X ONCE 02/09/18 17:00 02/09/18 17:01 DC 02/09/18 17:49 20 MG Ondansetron HCl (Zofran) 4 mg 1X ONCE 02/09/18 17:00 02/09/18 17:01 DC 02/09/18 17:49 4 MG Sodium Chloride 1,000 ml @ 1,000 mls/hr 1X ONCE 02/09/18 17:00 02/09/18 17:59 DC 02/09/18 17:49 1,000 MLS/HR Allergies Allergies Allergies Coded Allergies Type Severity Reaction Last Updated Verified No Known Medication Allergies Allergy Unknown 02/09/18 Yes ibuprofen Adverse Reaction Intermediate Nausea 11/07/15 Yes naproxen Adverse Reaction Intermediate Nausea 11/07/15 Yes Physical Exam Physical Exam Constitutional: Well developed, well nourished, no acute distress, non-toxic appearance. [] HENT: Normocephalic, atraumatic, bilateral external ears normal, oropharynx moist, no oral exudates, nose normal. [] Eyes: PERRLA, EOMI, conjunctiva normal, no discharge. [] Neck: Normal range of motion, no tenderness, supple, no stridor. [] Cardiovascular:Heart rate regular rhythm, no murmur [] Lungs & Thorax: Bilateral breath sounds clear to auscultation [] Abdomen: Bowel sounds normal, soft, no tenderness, no masses, no pulsatile masses. [] Skin: Warm, dry, no erythema, no rash. [] Back: No tenderness, no CVA tenderness. [] Extremities: No tenderness, no cyanosis, no clubbing, ROM intact, no edema. [] Neurologic: Alert and oriented X 3, normal motor function, normal sensory function, no focal deficits noted. [] Psychologic: Depressed mood. Current Patient Data Vital Signs Vital Signs Date Time Temp Pulse Resp B/P (MAP) Pulse Ox O2 Delivery O2 Flow Rate FiO2 02/09/18 17:50 66 18 126/77 (93) 97 Room Air 02/09/18 16:37 98.3 98.3 Lab Values Laboratory Tests Test 02/09/18 16:50 02/09/18 16:54 02/09/18 16:59 Urine Collection Type Void Urine Color Yellow Urine Clarity Turbid Urine pH 8.5 Urine Specific [place] 1.020 Urine Protein Negative mg/dL (NEG-TRACE) Urine Glucose (UA) Negative mg/dL (NEG) Urine Ketones (Stick) Negative mg/dL (NEG) Urine Blood Negative (NEG) Urine Nitrite Negative (NEG) Urine Bilirubin Negative (NEG) Urine Urobilinogen Dipstick 0.2 mg/dL (0.2 mg/dL) Urine Leukocyte Esterase Negative (NEG) Urine RBC Occ /HPF (0-2) Urine WBC Occ /HPF (0-4) Urine Squamous Epithelial Cells Mod /LPF Urine Amorphous Sediment Present /HPF Urine Bacteria Few /HPF (0-FEW) Urine Opiates Screen Neg (NEG) Urine Methadone Screen Neg (NEG) Urine Barbiturates Neg (NEG) Urine Phencyclidine Screen Neg (NEG) Urine Amphetamine/Methamphetamine Neg (NEG) Urine Benzodiazepines Screen Neg (NEG) Urine Cocaine Screen Neg (NEG) Urine Cannabinoids Screen Pos (NEG) Urine Ethyl Alcohol Neg (NEG) White Blood Count 5.2 x10^3/uL (4.0-11.0) Red Blood Count 4.37 x10^6/uL (3.50-5.40) Hemoglobin 13.6 g/dL (12.0-15.5) Hematocrit 40.1 % (36.0-47.0) Mean Corpuscular Volume 92 fL (79-100) Mean Corpuscular Hemoglobin 31 pg (25-35) Mean Corpuscular Hemoglobin Concent 34 g/dL (31-37) Red Cell Distribution Width 14.5 % (11.5-14.5) Platelet Count 310 x10^3/uL (140-400) Neutrophils (%) (Auto) 55 % (31-73) Lymphocytes (%) (Auto) 38 % (24-48) Monocytes (%) (Auto) 6 % (0-9) Eosinophils (%) (Auto) 1 % (0-3) Basophils (%) (Auto) 0 % (0-3) Neutrophils # (Auto) 2.8 x10^3uL (1.8-7.7) Lymphocytes # (Auto) 2.0 x10^3/uL (1.0-4.8) Monocytes # (Auto) 0.3 x10^3/uL (0.0-1.1) Eosinophils # (Auto) 0.0 x10^3/uL (0.0-0.7) Basophils # (Auto) 0.0 x10^3/uL (0.0-0.2) Sodium Level 143 mmol/L (136-145) Potassium Level 3.7 mmol/L (3.5-5.1) Chloride Level 106 mmol/L (98-107) Carbon Dioxide Level 25 mmol/L (21-32) Anion Gap 12 (6-14) Blood Urea Nitrogen 8 mg/dL (7-20) Creatinine 0.9 mg/dL (0.6-1.0) Estimated GFR (Cockcroft-Gault) 80.5 BUN/Creatinine Ratio 9 (6-20) Glucose Level 117 mg/dL (70-99) H Calcium Level 9.5 mg/dL (8.5-10.1) Total Bilirubin 0.3 mg/dL (0.2-1.0) Aspartate Amino Transferase (AST) 20 U/L (15-37) Alanine Aminotransferase (ALT) 27 U/L (14-59) Alkaline Phosphatase 54 U/L (46-116) Total Protein 7.9 g/dL (6.4-8.2) Albumin 3.7 g/dL (3.4-5.0) Albumin/Globulin Ratio 0.9 (1.0-1.7) L Lipase 127 U/L (73-393) Ethyl Alcohol Level < 10 mg/dL (0-10) POC Urine HCG, Qualitative Hcg negative (Negative) Laboratory Tests 02/09/18 16:54 Laboratory Tests 02/09/18 16:54 EKG EKG [] Radiology/Procedures Radiology/Procedures [] Course & Med Decision Making Course & Med Decision Making Pertinent Labs and Imaging studies reviewed. (See chart for details) See history of present illness, this is a 47-year-old female patient with history of anxiety who presents today complaining of vomiting that began this evening after drinking Kyle-Aid prepared by the boyfriend. She was under the impression the boyfriend could've slipped something in the Kyle-Aid. Her drug screen is positive for marijuana use. Her CBC CMP lipase are negative for any acute findings, urine analysis is negative for infection. Patient states she used to be on anxiety medicine specifically Xanax but her own PCP refused to give any refills because she is already on hydrocodone. Informed patient will prefer not to put on any more anxiety medicines from the ED. She has no suicidal or homicidal ideations. I recommended she goes home and follows up with her own PCP. Discharged with Hailee. Jenny Disclaimer Jenny Disclaimer This electronic medical record was generated, in whole or in part, using a voice recognition dictation system. Departure Departure Impression: Primary Impression: Anxiety attack Additional Impressions: Vomiting Marijuana use Disposition: 01 HOME, SELF-CARE Condition: STABLE Referrals: LYNN DE LEON MD (PCP) Follow-up in the course of this week or next week Patient Instructions: Anxiety and Panic Attacks, [id number], Marijuana Abuse- Brief, Nausea and Vomiting, [id number] Additional Instructions: You were evaluated in the emergency room for vomiting. Take the prescribed nausea medicine as needed for nausea or vomiting. Push fluids. Follow-up with your own doctor in the course of this week or next week. Scripts Ondansetron (ONDANSETRON ODT) 4 Mg Tab.rapdis 1 TAB PO PRN Q6-8HRS, #16 TAB Prov: WILL DUNLAP APRN 02/09/18 Problem Qualifiers Additional Impressions: Vomiting Vomiting type: unspecified Vomiting Intractability: non-intractable Nausea presence: without nausea Qualified Codes: R11.11 - Vomiting without nausea WILL DUNLAP APRN Feb 09, 2018 18:14
[2018-02-09] MEDS ORDERED: ONDA4TAB12 PO (18:28)
== END 2018-02-09 19:36 | disposition home or self-care (01) ==
LOC: ER 16:19
DX: R11.11 Vomiting without nausea (principal); F12.980 Cannabis use, unspecified with anxiety disorder; I10 Essential (primary) hypertension; E11.40 Type 2 diabetes mellitus with diabetic neuropathy, unspecified; Z98.51 Tubal ligation status; G89.29 Other chronic pain; Z88.5 Allergy status to narcotic agent; Z88.8 Allergy status to other drugs, medicaments and biological substances
CPT/HCPCS: 36415; 80053; 80307; 81001; 81025; 83690; 85025; 96361; 96374; 96375; 99284; G0480; J2405; J3490; J7030; 99283

== ENCOUNTER 2018-12-20 15:19 | Observation (INO) | payer OTHER ==
[~2018-12-20] VITALS: Ht 162.6 cm; Wt 84.8 kg
[~2018-12-20 15:19] MED LIST changes: +ONDA4TAB12 PO; -PANT40TA3 PO; +PANT40TA77 PO
[2018-12-20] MEDS ORDERED: IV NORMAL SALINE 1000ML BAG 1,000 ML IV SCH (15:50)
--- NOTE | 2018-12-20 16:03 | PHYS DOC ---
Past Medical History Past Medical History: Anxiety, Diabetes-Type II, Hypertension Additional Past Medical Histor: NEUROPATHY, chronic back pain, SLEEP APNEA Past Surgical History: Tubal ligation Alcohol Use: Occasionally Drug Use: Marijuana Adult General Chief Complaint Chief Complaint: NEURO SYMPTOMS/DEFICITS [facility] HPI Patient is a 48-year-old female who presents to the emergency department for e valuation. She states that for the past 2 days, she has had some paresthesias in her left arm, as well as some intermittent left-sided weakness. She denies any new pain, including a headache, vision changes, or lower extremity symptoms. She denies any injuries. She exhibits a flat affect and does admit to having a history of anxiety, and states that she had a panic attack on Wednesday, and has had paresthesias since that time. He does appear moderately anxious. She denies any suicidal or homicidal ideation. There are no alleviating or exacerbating factors to her symptoms otherwise. Review of Systems Review of Systems Constitutional: Denies fever or chills [] Eyes: Denies change in visual acuity, redness, or eye pain [] HENT: Denies nasal congestion or sore throat [] Respiratory: Denies cough or shortness of breath [] Cardiovascular: The patient denies any shortness of breath, chest pain, palpitations, or orthopnea [] GI: Denies abdominal pain, nausea, vomiting, bloody stools or diarrhea [] : Denies dysuria or hematuria [] Musculoskeletal: Denies back pain or joint pain [] Integument: Denies rash or skin lesions [] Neurologic: No additional information not addressed in HPI [] Endocrine: Denies polyuria or polydipsia [] All other systems were reviewed and found to be within normal limits, except as documented in this note. Current Medications Current Medications Current Medications Medications (Trade) Dose Ordered Sig/Isis Start Time Stop Time Status Last Admin Dose Admin Info (CONTRAST GIVEN -- Rx MONITORING) 1 each PRN DAILY PRN 12/20/18 16:30 12/21/18 16:47 DC Iohexol (Omnipaque 350 Mg/ml) 75 ml 1X ONCE 12/20/18 16:30 12/20/18 16:31 DC 12/20/18 16:30 75 ML Lorazepam (Ativan Inj) 0.5 mg 1X ONCE 12/20/18 16:00 12/20/18 16:01 DC 12/20/18 16:09 0.5 MG Sodium Chloride 1,000 ml @ 100 mls/hr Q10H 12/20/18 15:50 12/21/18 01:50 DC 12/20/18 16:09 100 MLS/HR Allergies Allergies Allergies Coded Allergies Type Severity Reaction Last Updated Verified ibuprofen Adverse Reaction Intermediate Nausea 11/07/15 Yes naproxen Adverse Reaction Intermediate Nausea 11/07/15 Yes Physical Exam Physical Exam PHYSICAL EXAM: CONSTITUTIONAL: Well developed, well nourished HEAD: normocephalic, atraumatic EENT: PERRL, EOMI. Conjunctivae normal color, sclerae non-icteric; moist mucous membranes. NECK: Supple, non-tender; no meningismus. LUNGS: Lungs CTA, breathing even and unlabored. Normal air movement. HEART: Regular rate and rhythm, no murmur CHEST: No deformity; non-tender ABDOMEN: The abdomen is soft, and non-tender, no masses or bruits. EXTREM: Normal ROM; no deformity, no calf tenderness. Normal pulses palpable in all extremities. There is no pedal edema. SKIN: No rash; no diaphoresis NEURO: Alert; normal speech and cognition; CN's grossly intact; strength grossly intact without focal deficit. There is questionable subjective decreased pinprick to the left upper extremity compared to the right. There is no facial sensory deficit. [id number] and heel corrales testing is normal. Visual manzano are intact by confrontation. NIH stroke scale score is 1. BACK: No CVA TTP. Current Patient Data Vital Signs Vital Signs Date Time Temp Pulse Resp B/P (MAP) Pulse Ox O2 Delivery O2 Flow Rate FiO2 12/20/18 16:40 72 18 98 12/20/18 15:30 98.8 117/63 (81) Room Air 98.8 Lab Values Laboratory Tests Test 12/20/18 15:46 12/20/18 16:03 POC Urine HCG, Qualitative Hcg negative (Negative) White Blood Count 5.7 x10^3/uL (4.0-11.0) Red Blood Count 4.40 x10^6/uL (3.50-5.40) Hemoglobin 13.4 g/dL (12.0-15.5) Hematocrit 40.4 % (36.0-47.0) Mean Corpuscular Volume 92 fL (79-100) Mean Corpuscular Hemoglobin 31 pg (25-35) Mean Corpuscular Hemoglobin Concent 33 g/dL (31-37) Red Cell Distribution Width 14.5 % (11.5-14.5) Platelet Count 296 x10^3/uL (140-400) Neutrophils (%) (Auto) 36 % (31-73) Lymphocytes (%) (Auto) 56 % (24-48) H Monocytes (%) (Auto) 6 % (0-9) Eosinophils (%) (Auto) 2 % (0-3) Basophils (%) (Auto) 1 % (0-3) Neutrophils # (Auto) 2.0 x10^3/uL (1.8-7.7) Lymphocytes # (Auto) 3.2 x10^3/uL (1.0-4.8) Monocytes # (Auto) 0.4 x10^3/uL (0.0-1.1) Eosinophils # (Auto) 0.1 x10^3/uL (0.0-0.7) Basophils # (Auto) 0.1 x10^3/uL (0.0-0.2) Prothrombin Time 12.8 SEC (11.7-14.0) Prothrombin Time INR 1.0 (0.8-1.1) Sodium Level 142 mmol/L (136-145) Potassium Level 3.6 mmol/L (3.5-5.1) Chloride Level 106 mmol/L (98-107) Carbon Dioxide Level 26 mmol/L (21-32) Anion Gap 10 (6-14) Blood Urea Nitrogen 10 mg/dL (7-20) Creatinine 1.0 mg/dL (0.6-1.0) Estimated GFR (Cockcroft-Gault) 71.0 BUN/Creatinine Ratio 10 (6-20) Glucose Level 148 mg/dL (70-99) H Calcium Level 9.0 mg/dL (8.5-10.1) Magnesium Level 1.9 mg/dL (1.8-2.4) Total Bilirubin 0.2 mg/dL (0.2-1.0) Aspartate Amino Transferase (AST) 17 U/L (15-37) Alanine Aminotransferase (ALT) 15 U/L (14-59) Alkaline Phosphatase 60 U/L (46-116) Troponin I Quantitative < 0.017 ng/mL (0.000-0.055) Total Protein 7.6 g/dL (6.4-8.2) Albumin 3.6 g/dL (3.4-5.0) Albumin/Globulin Ratio 0.9 (1.0-1.7) L Thyroid Stimulating Hormone (TSH) 0.774 uIU/mL (0.358-3.74) Free Thyroxine 0.90 ng/dL (0.76-1.46) Laboratory Tests 12/20/18 16:03 Laboratory Tests 12/20/18 16:03 EKG EKG Normal sinus rhythm with a normal rate, normal axis, normal intervals, there are no acute ischemic ST/T changes.[] Radiology/Procedures Radiology/Procedures PROCEDURE: PORTABLE CHEST 1V Single view chest dated 12/20/2018: Placement 07/04/2017 Clinical Indication: Left-sided paresthesias. Code stroke.. Findings: Single upright portable exam of the chest was performed. Heart size and mediastinal contours are within normal limits given technique. The lungs are clear without evidence of focal consolidation. Vascular interstitium is within normal limits. Impression:: No acute radiographic abnormality. [] PROCEDURE: CT ANGIOGRAPHY HEAD AND NECK CT head without contrast and CTA head and neck with contrast dated 12/20/2018. No comparison available. Clinical data indication: Left-sided paresthesias. TECHNIQUE: Contiguous axial imaging the head was performed from skull base to vertex. No contrast dimension. In addition, axial imaging the head and neck acquired following the intravenous administration of 75 cc Omnipaque 350. Study performed as dedicated CTA with thin cut coronal and sagittal MIPS reconstructions and 3-D rotational reconstructions. One or more of the following individualized dose reduction techniques were utilized for this examination: 1. Automated exposure control 2. Adjustment of the mA and/or kV according to patient size 3. Use of iterative reconstruction technique Carotid Stenosis calculations for CT, MR, and conventional angiography are based upon measurements of the distal ICA diameter in accordance with the NASCET methodology. Stenosis calculations for carotid ultrasound studies are derived from validated velocity criteria which are known to correlate with the NASCET methodology. FINDINGS: Noncontrast imaging the brain shows normal caliber ventricles and sulci for patient's age. No midline shift or mass effect. Brain parenchyma is of normal attenuation. No hemorrhage or extra-axial collection. Posterior fossa and brainstem unremarkable. Visualized paranasal sinuses and mastoid air cells are clear. No apparent calvarial abnormality. Postcontrast imaging shows normal caliber aortic arch. 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 Possible mild to moderate narrowing of the origin of the left subclavian artery versus artifact. Subclavian and vertebral arteries are otherwise patent. No intimal flap or focal stenosis. Intradural vertebral arteries are small but patent. Basilar artery is patent. There is origin of the bilateral [employer]ATOR. Comment carotid arteries are patent. There is minimal calcific plaque at the left carotid bifurcation and proximal right ICA. Internal carotid arteries are otherwise patent to the skull base. Mild calcific plaquing of the bilateral cavernous ICA. No focal stenosis. KURT and MCA branches are symmetric. No apparent proximal branch vessel occlusion or aneurysm. Postcontrast imaging the brain shows no abnormal enhancement. Dural venous sinuses are patent. Visualized soft tissue structures unremarkable. Thyroid gland unremarkable. Limited images of lung apices are clear. No significant bony abnormality. IMPRESSION: 1. No evidence of acute intercranial hemorrhage or mass. 2. No evidence of hemodynamically significant stenosis or aneurysm. 3. Possible mild narrowing of the left subclavian and left vertebral artery origins versus artifact. Course & Med Decision Making Course & Med Decision Making Pertinent Labs and Imaging studies reviewed. (See chart for details) [] 6:05 PM: The patient's condition remains stable. I spoke with the hospitalist, who accepted the patient to the hospital for further evaluation and treatment. CT imaging is currently pending. Patient will be admitted to rule out neurologic cause of her symptoms. Dragon Disclaimer Dragon Disclaimer This electronic medical record was generated, in whole or in part, using a voice recognition dictation system. Departure Departure Impression: Primary Impression: Paresthesias Additional Impression: Anxiety Disposition: 09 ADMITTED INPATIENT Condition: STABLE Referrals: LYNN DE LEON MD (PCP) Scripts Alprazolam (ALPRAZOLAM) 0.25 Mg Tablet 0.25 MG PO PRN Q8HRS PRN for ANXIETY / AGITATION, #30 TAB Prov: ROB HARKINS MD 12/21/18 Problem Qualifiers ERICH BECERRA MD Dec 20, 2018 16:03
[2018-12-20 16:12] LABS: BASO # 0.1 x10^3/uL (0.0-0.2); BASO % 1 % (0-3); EOS # 0.1 x10^3/uL (0.0-0.7); EOS % 2 % (0-3); HEMATOCRIT 40.4 % (36.0-47.0); HEMOGLOBIN 13.4 g/dL (12.0-15.5); LYMPH # 3.2 x10^3/uL (1.0-4.8); LYMPH % 56 % (24-48); MEAN CORPUSCULAR HEMOGLOBIN 31 pg (25-35); MEAN CORPUSCULAR HGB CONC 33 g/dL (31-37); MEAN CORPUSCULAR VOLUME 92 fL (79-100); MONO # 0.4 x10^3/uL (0.0-1.1); MONO % 6 % (0-9); NEUT % 36 % (31-73); PLATELET COUNT 296 x10^3/uL (140-400); RED CELL DISTRIBUTION WIDTH 14.5 % (11.5-14.5); WHITE BLOOD COUNT 5.7 x10^3/uL (4.0-11.0)
[2018-12-20 16:21] LABS: POTASSIUM 3.6 mmol/L (3.5-5.1); PROTHROMBIN TIME PATIENT 12.8 SEC (11.7-14.0)
[2018-12-20 16:27] LABS: ALBUMIN 3.6 g/dL (3.4-5.0); ALBUMIN/GLOBULIN RATIO 0.9 (1.0-1.7); MAGNESIUM 1.9 mg/dL (1.8-2.4); TOTAL BILIRUBIN 0.2 mg/dL (0.2-1.0); TOTAL PROTEIN 7.6 g/dL (6.4-8.2)
[2018-12-20] MEDS ORDERED: CONTRAST GIVEN. MC PRN (16:30)
[2018-12-20] MEDS ORDERED: IOHEXOL 350 MG/ML 100 ML VIAL. IV ONE (16:30)
[2018-12-20 16:34] LABS: FREE T4 0.9 ng/dL (0.76-1.46); THYROID STIM HORMONE (TSH) 0.774 uIU/mL (0.358-3.74)
--- NOTE | 2018-12-20 16:34 | RAD ---
Single view chest dated 12/20/2018: Placement 07/04/2017 Clinical Indication: Left-sided paresthesias. Code stroke.. Findings: Single upright portable exam of the chest was performed. Heart size and mediastinal contours are within normal limits given technique. The lungs are clear without evidence of focal consolidation. Vascular interstitium is within normal limits. Impression:: No acute radiographic abnormality. Electronically signed by: Jamir Krause MD (12/20/2018 4:31 PM) [facility]
[2018-12-20] MEDS ORDERED: CYCLOBENZAPRINE 10 MG TABLET. PO PRN (18:15)
[2018-12-20] MEDS ORDERED: ACETAMINOPHEN/CODEINE 300/30MG TABLET. PO PRN (18:15)
[2018-12-20] MEDS ORDERED: HYDROcodone/APAP 5/325MG 1 TAB TABLET PO PRN (18:15)
[2018-12-20] MEDS ORDERED: traMADol 50 MG TABLET PO PRN (18:15)
[2018-12-20] MEDS ORDERED: oxyCODONE/APAP 5/325 1 TAB TABLET PO PRN (18:15)
[2018-12-20] MEDS ORDERED: ONDANSETRON ODT 4 MG TAB.RAPDIS. PO PRN (18:15)
--- NOTE | 2018-12-20 18:25 | PDOC1 ---
History and Physical Date of Admission Date of Admission DATE: 12/20/18 TIME: 18:20 Identification/Chief Complaint Chief Complaint 3 day hx of parasthesias Source Source: Caregiver, Chart review, Patient History of Present Illness History of Present Illness She came in via own POV, in her own accord bec of reported 3 day hx left jaw numbness and tightness, tingling numbness hands and left side BUT NO weakness,WORSE TODAY, She really does not have any signif past medical, all home meds on file are pain meds that are hydrocodone derivatives, She has NSAID listed as allergy - vomiting she says,. HEr labs and VS and CXR and CT head all look ok. CTA head neck pending SHe is admitted obs with consult to neuro but likely will go home tmr with neg work up She asks for food, i see her at ER PCP Dr Ortiz FULL CODE Past Medical History Cardiovascular: No pertinent hx, HTN Pulmonary: No pertinent hx CENTRAL NERVOUS SYSTEM: Migraine GI: GERD Heme/Onc: No pertinent hx Hepatobiliary: No pertinent hx Psych: Anxiety Musculoskeletal: Osteoarthritis, Other Rheumatologic: No pertinent hx Infectious disease: No pertinent hx Renal/: Urinary Incontinence, Other Endocrine: Diabetes Past Surgical History Past Surgical History: , Tubal Ligation Family History Family History: Coronary Artery Disease Social History Smoke: No ALCOHOL: none Drugs: None Current Problem List Problem List Problems Medical Problems: (1) Anxiety Status: Acute (2) Paresthesias Status: Acute Current Medications Current Medications Current Medications Lorazepam (Ativan Inj) 0.5 mg 1X ONCE IVP Last administered on 12/20/18at 16:09; Start 12/20/18 at 16:00; Stop 12/20/18 at 16:01; Status DC Sodium Chloride 1,000 ml @ 100 mls/hr Q10H IV Last administered on 12/20/18at 16:09; Start 12/20/18 at 15:50; Stop 12/21/18 at 01:49 Iohexol (Omnipaque 350 Mg/ml) 75 ml 1X ONCE IV Last administered on 12/20/18at 16:30; Start 12/20/18 at 16:30; Stop 12/20/18 at 16:31; Status DC Info (CONTRAST GIVEN -- Rx MONITORING) 1 each PRN DAILY PRN MC SEE COMMENTS; Start 12/20/18 at 16:30; Stop 12/22/18 at 16:29 Active Scripts Active Ondansetron Odt (Ondansetron) 4 Mg Tab.rapdis 1 Tab PO PRN Q6-8HRS Hydroxyzine Hcl 25 Mg Tablet 1 Tab PO TID Tylenol With Codeine #3 Tablet (Acetaminophen/Codeine Phosphate) 1 Each Tablet 1 Tab PO PRN Q4HRS PRN Cyclobenzaprine Hcl 10 Mg Tablet 10 Mg PO TID Tessalon Perle (Benzonatate) 100 Mg Capsule 1 Cap PO TID Doxycycline Hyclate 100 Mg Tablet 1 Tab PO BID Bactrim Ds Tablet (Sulfamethoxazole/Trimethoprim) 1 Each Tablet 2 Tab PO BID 10 Days Ultram (Tramadol Hcl) 50 Mg Tablet 1 Tab PO Q6HRS Veteran 5-325 Tablet (Acetaminophen/Hydrocodone Bitart) 1 Each Tablet 1 Tab PO PRN Q6HRS PRN Cyclobenzaprine Hcl 10 Mg Tablet 1 Tab PO TID PRN Keflex (Cephalexin) 500 Mg Capsule 1 Cap PO BID First dose given in the emergency department. Cyclobenzaprine Hcl 10 Mg Tablet 10 Mg PO TID PRN Flagyl (Metronidazole) 500 Mg Tablet 1 Tab PO BID Cyclobenzaprine Hcl 10 Mg Tablet 1 Tab PO TID Veteran 5-325 Tablet (Acetaminophen/Hydrocodone Bitart) 1 Each Tablet 1-2 Tab PO Q4-6HRS Zofran Odt (Ondansetron) 4 Mg Tab.rapdis 1 Tab SL Q8HRS Percocet 5-325 Mg Tablet (Oxycodone/Acetaminophen) 1 Each Tablet 1 Tab PO PRN Q6HRS PRN Ultram (Tramadol Hcl) 50 Mg Tablet 50 Mg PO Q6H PRN Ventolin Hfa Inhaler (Albuterol Sulfate) 18 Gm Hfa.aer.ad 2 Puff INH Q4HRS Prednisone 20 Mg Tablet 40 Mg PO DAILY 5 Days Protonix (Pantoprazole Sodium) 40 Mg Tablet.dr 40 Mg PO DAILY Allergies Allergies: Coded Allergies: No Known Medication Allergies (Verified Allergy, Unknown, 02/09/18) ibuprofen (Verified Adverse Reaction, Intermediate, Nausea, 11/07/15) naproxen (Verified Adverse Reaction, Intermediate, Nausea, 11/07/15) ROS Review of System as per hpi, plus some migraines occasional Physical Exam General: Alert, Oriented X3, Cooperative, No acute distress HEENT: Atraumatic, PERRLA, EOMI Lungs: Clear to auscultation, Normal air movement Heart: S1S2, RRR, no thrills, no rubs Cardiovascular: S1, S2 Breasts: Normal, Rt breast nml w/o mass, Lt breast nml w/o mass, Nipples normal Abdomen: Normal bowel sounds, Soft, No tenderness, No hepatosplenomegaly, No masses Rectal Exam: not examined PELVIC: Nml ext genitalia Extremities: No clubbing, No cyanosis, No edema, Normal pulses, No tenderness/swelling Skin: No rashes, No breakdown, No significant lesion Neuro: Normal gait, Normal speech, Strength at 5/5 X4 ext, Normal tone, Sensation intact, Cranial nerves 3-12 NL, Reflexes 2+ Psych/Mental Status: Mental status NL, Mood NL Vitals Vitals Vital Signs Date Time Temp Pulse Resp B/P (MAP) Pulse Ox O2 Delivery O2 Flow Rate FiO2 12/20/18 16:40 72 18 98 12/20/18 15:30 98.8 117/63 (81) Room Air 98.8 Labs Labs Laboratory Tests Test 12/20/18 15:46 12/20/18 16:03 Bedside Urine HCG, Qualitative Hcg negative (Negative) White Blood Count 5.7 x10^3/uL (4.0-11.0) Red Blood Count 4.40 x10^6/uL (3.50-5.40) Hemoglobin 13.4 g/dL (12.0-15.5) Hematocrit 40.4 % (36.0-47.0) Mean Corpuscular Volume 92 fL (79-100) Mean Corpuscular Hemoglobin 31 pg (25-35) Mean Corpuscular Hemoglobin Concent 33 g/dL (31-37) Red Cell Distribution Width 14.5 % (11.5-14.5) Platelet Count 296 x10^3/uL (140-400) Neutrophils (%) (Auto) 36 % (31-73) Lymphocytes (%) (Auto) 56 % (24-48) Monocytes (%) (Auto) 6 % (0-9) Eosinophils (%) (Auto) 2 % (0-3) Basophils (%) (Auto) 1 % (0-3) Neutrophils # (Auto) 2.0 x10^3/uL (1.8-7.7) Lymphocytes # (Auto) 3.2 x10^3/uL (1.0-4.8) Monocytes # (Auto) 0.4 x10^3/uL (0.0-1.1) Eosinophils # (Auto) 0.1 x10^3/uL (0.0-0.7) Basophils # (Auto) 0.1 x10^3/uL (0.0-0.2) Prothrombin Time 12.8 SEC (11.7-14.0) Prothromb Time International Ratio 1.0 (0.8-1.1) Sodium Level 142 mmol/L (136-145) Potassium Level 3.6 mmol/L (3.5-5.1) Chloride Level 106 mmol/L (98-107) Carbon Dioxide Level 26 mmol/L (21-32) Anion Gap 10 (6-14) Blood Urea Nitrogen 10 mg/dL (7-20) Creatinine 1.0 mg/dL (0.6-1.0) Estimated GFR (Cockcroft-Gault) 71.0 BUN/Creatinine Ratio 10 (6-20) Glucose Level 148 mg/dL (70-99) Calcium Level 9.0 mg/dL (8.5-10.1) Magnesium Level 1.9 mg/dL (1.8-2.4) Total Bilirubin 0.2 mg/dL (0.2-1.0) Aspartate Amino Transf (AST/SGOT) 17 U/L (15-37) Alanine Aminotransferase (ALT/SGPT) 15 U/L (14-59) Alkaline Phosphatase 60 U/L (46-116) Troponin I Quantitative < 0.017 ng/mL (0.000-0.055) Total Protein 7.6 g/dL (6.4-8.2) Albumin 3.6 g/dL (3.4-5.0) Albumin/Globulin Ratio 0.9 (1.0-1.7) Thyroid Stimulating Hormone (TSH) 0.774 uIU/mL (0.358-3.74) Free Thyroxine 0.90 ng/dL (0.76-1.46) Laboratory Tests Test 12/20/18 15:46 12/20/18 16:03 Bedside Urine HCG, Qualitative Hcg negative (Negative) White Blood Count 5.7 x10^3/uL (4.0-11.0) Red Blood Count 4.40 x10^6/uL (3.50-5.40) Hemoglobin 13.4 g/dL (12.0-15.5) Hematocrit 40.4 % (36.0-47.0) Mean Corpuscular Volume 92 fL (79-100) Mean Corpuscular Hemoglobin 31 pg (25-35) Mean Corpuscular Hemoglobin Concent 33 g/dL (31-37) Red Cell Distribution Width 14.5 % (11.5-14.5) Platelet Count 296 x10^3/uL (140-400) Neutrophils (%) (Auto) 36 % (31-73) Lymphocytes (%) (Auto) 56 % (24-48) Monocytes (%) (Auto) 6 % (0-9) Eosinophils (%) (Auto) 2 % (0-3) Basophils (%) (Auto) 1 % (0-3) Neutrophils # (Auto) 2.0 x10^3/uL (1.8-7.7) Lymphocytes # (Auto) 3.2 x10^3/uL (1.0-4.8) Monocytes # (Auto) 0.4 x10^3/uL (0.0-1.1) Eosinophils # (Auto) 0.1 x10^3/uL (0.0-0.7) Basophils # (Auto) 0.1 x10^3/uL (0.0-0.2) Prothrombin Time 12.8 SEC (11.7-14.0) Prothromb Time International Ratio 1.0 (0.8-1.1) Sodium Level 142 mmol/L (136-145) Potassium Level 3.6 mmol/L (3.5-5.1) Chloride Level 106 mmol/L (98-107) Carbon Dioxide Level 26 mmol/L (21-32) Anion Gap 10 (6-14) Blood Urea Nitrogen 10 mg/dL (7-20) Creatinine 1.0 mg/dL (0.6-1.0) Estimated GFR (Cockcroft-Gault) 71.0 BUN/Creatinine Ratio 10 (6-20) Glucose Level 148 mg/dL (70-99) Calcium Level 9.0 mg/dL (8.5-10.1) Magnesium Level 1.9 mg/dL (1.8-2.4) Total Bilirubin 0.2 mg/dL (0.2-1.0) Aspartate Amino Transf (AST/SGOT) 17 U/L (15-37) Alanine Aminotransferase (ALT/SGPT) 15 U/L (14-59) Alkaline Phosphatase 60 U/L (46-116) Troponin I Quantitative < 0.017 ng/mL (0.000-0.055) Total Protein 7.6 g/dL (6.4-8.2) Albumin 3.6 g/dL (3.4-5.0) Albumin/Globulin Ratio 0.9 (1.0-1.7) Thyroid Stimulating Hormone (TSH) 0.774 uIU/mL (0.358-3.74) Free Thyroxine 0.90 ng/dL (0.76-1.46) VTE Prophylaxis Ordered VTE Prophylaxis Devices: Yes VTE Pharmacological Prophylaxi: Yes Assessment/Plan Assessment/Plan PArasthesias with normal neuro exam HIgh liikelihood anxiety NOS MIgraines hx PLAn: HOme meds reconciled, OBS status, ok to eat reg diet Trial xanax CTA head neck ff up NEuro consulted MAybe asa 79 wont hurt as primary [prevention LIkely home tmr SHAMAR GUZMAN MD Dec 20, 2018 18:25
[2018-12-20] MEDS ORDERED: MORPHINE SULFATE 2 MG/ML VIAL. IV PRN (18:30)
[2018-12-20] MEDS ORDERED: ZOLPIDEM 5 MG TABLET. PO PRN (18:30)
[2018-12-20] MEDS ORDERED: ALPRAZolam 0.25 MG TABLET PO PRN (18:30)
--- NOTE | 2018-12-20 18:43 | RAD ---
CT head without contrast and CTA head and neck with contrast dated 12/20/2018. No comparison available. Clinical data indication: Left-sided paresthesias. TECHNIQUE: Contiguous axial imaging the head was performed from skull base to vertex. No contrast dimension. In addition, axial imaging the head and neck acquired following the intravenous administration of 75 cc Omnipaque 350. Study performed as dedicated CTA with thin cut coronal and sagittal MIPS reconstructions and 3-D rotational reconstructions. One or more of the following individualized dose reduction techniques were utilized for this examination: 1. Automated exposure control 2. Adjustment of the mA and/or kV according to patient size 3. Use of iterative reconstruction technique Carotid Stenosis calculations for CT, MR, and conventional angiography are based upon measurements of the distal ICA diameter in accordance with the NASCET methodology. Stenosis calculations for carotid ultrasound studies are derived from validated velocity criteria which are known to correlate with the NASCET methodology. FINDINGS: Noncontrast imaging the brain shows normal caliber ventricles and sulci for patient's age. No midline shift or mass effect. Brain parenchyma is of normal attenuation. No hemorrhage or extra-axial collection. Posterior fossa and brainstem unremarkable. Visualized paranasal sinuses and mastoid air cells are clear. No apparent calvarial abnormality. Postcontrast imaging shows normal caliber aortic arch. 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 Possible mild to moderate narrowing of the origin of the left subclavian artery versus artifact. Subclavian and vertebral arteries are otherwise patent. No intimal flap or focal stenosis. Intradural vertebral arteries are small but patent. Basilar artery is patent. There is origin of the bilateral [employer]. Comment carotid arteries are patent. There is minimal calcific plaque at the left carotid bifurcation and proximal right ICA. Internal carotid arteries are otherwise patent to the skull base. Mild calcific plaquing of the bilateral cavernous ICA. No focal stenosis. KURT and MCA branches are symmetric. No apparent proximal branch vessel occlusion or aneurysm. Postcontrast imaging the brain shows no abnormal enhancement. Dural venous sinuses are patent. Visualized soft tissue structures unremarkable. Thyroid gland unremarkable. Limited images of lung apices are clear. No significant bony abnormality. IMPRESSION: 1. No evidence of acute intercranial hemorrhage or mass. 2. No evidence of hemodynamically significant stenosis or aneurysm. 3. Possible mild narrowing of the left subclavian and left vertebral artery origins versus artifact. Electronically signed by: Jamir Krause MD (12/20/2018 6:40 PM) [facility]
[2018-12-20 20:00] VITALS: BP 111/61
[2018-12-20] MEDS ORDERED: hydrOXYzine 25 MG TABLET PO PRN (21:00)
[2018-12-20] MEDS: ALBUTEROL SULFATE 2.5 MG/3 ML NEBU. NEB SCH ×2 (21:29→23:35)
[2018-12-20 23:35] VITALS: BP 109/54
[2018-12-21] MEDS: ALBUTEROL SULFATE 2.5 MG/3 ML NEBU. NEB SCH ×4 (03:17→16:02)
[2018-12-21 03:35] VITALS: BP 112/44
--- NOTE | 2018-12-21 06:15 | EKG ---
[facility] [address] [place] [address] Test Date: 2018-12-20 Test Time: 15:58:04 Pat Name: KEKE ADAM Department: Room: Gender: F [employer]: : 1970 Requested By: ERICH BECERRA Order Number: [id number] Reading MD: Measurements Intervals [place] Rate: 75 P: MA: QRS: 31 QRSD: 74 T: 33 QT: 390 QTc: 438 Interpretive Statements IRREGULAR RHYTHM, NO P-WAVE FOUND OTHERWISE NORMAL ECG RI6.01 No previous ECG available for comparison
[2018-12-21 06:41] LABS: CHOLESTEROL/HDL RATIO 6.7
[2018-12-21 07:15] VITALS: BP 121/65
[2018-12-21] MEDS ORDERED: PANTOPRAZOLE 40 MG TABLET.DR. PO SCH (07:30)
[2018-12-21] MEDS ORDERED: ASPIRIN ENTERIC COATED 81 MG TABLET.DR. PO SCH (08:00)
--- NOTE | 2018-12-21 11:02 | NUR ---
SW following pt for dc planning. Chart reviewed. Pt lives at home. No SW needs identified at this time. SW will be available as needed.
[2018-12-21 11:15] VITALS: BP 105/55
[2018-12-21] MEDS ORDERED: ALPR0.254 PO (12:01)
--- NOTE | 2018-12-21 12:03 | PDOC3 ---
Discharge Summary Visit Information Date of Admission: Dec 20, 2018 Date of Discharge: Dec 21, 2018 Final Diagnosis PArasthesias with normal neuro exam anxiety disorder MIgraines hx obese, BMI 32 homebound for back pain, gets [facility] doctors to visit Problems Medical Problems: (1) Anxiety Status: Acute (2) Paresthesias Status: Acute Brief Hospital Course Allergies Allergies Coded Allergies Type Severity Reaction Last Updated Verified ibuprofen Adverse Reaction Intermediate Nausea 11/07/15 Yes naproxen Adverse Reaction Intermediate Nausea 11/07/15 Yes Vital Signs Vital Signs Date Time Temp Pulse Resp B/P (MAP) Pulse Ox O2 Delivery O2 Flow Rate FiO2 12/21/18 08:03 98 Room Air 12/21/18 07:15 98.6 97 17 121/65 (83) 98.6 Lab Results Laboratory Tests Test 12/20/18 15:46 12/20/18 16:03 12/21/18 06:08 Bedside Urine HCG, Qualitative Hcg negative (Negative) White Blood Count 5.7 x10^3/uL (4.0-11.0) Red Blood Count 4.40 x10^6/uL (3.50-5.40) Hemoglobin 13.4 g/dL (12.0-15.5) Hematocrit 40.4 % (36.0-47.0) Mean Corpuscular Volume 92 fL (79-100) Mean Corpuscular Hemoglobin 31 pg (25-35) Mean Corpuscular Hemoglobin Concent 33 g/dL (31-37) Red Cell Distribution Width 14.5 % (11.5-14.5) Platelet Count 296 x10^3/uL (140-400) Neutrophils (%) (Auto) 36 % (31-73) Lymphocytes (%) (Auto) 56 % (24-48) Monocytes (%) (Auto) 6 % (0-9) Eosinophils (%) (Auto) 2 % (0-3) Basophils (%) (Auto) 1 % (0-3) Neutrophils # (Auto) 2.0 x10^3/uL (1.8-7.7) Lymphocytes # (Auto) 3.2 x10^3/uL (1.0-4.8) Monocytes # (Auto) 0.4 x10^3/uL (0.0-1.1) Eosinophils # (Auto) 0.1 x10^3/uL (0.0-0.7) Basophils # (Auto) 0.1 x10^3/uL (0.0-0.2) Prothrombin Time 12.8 SEC (11.7-14.0) Prothromb Time International Ratio 1.0 (0.8-1.1) Sodium Level 142 mmol/L (136-145) Potassium Level 3.6 mmol/L (3.5-5.1) Chloride Level 106 mmol/L (98-107) Carbon Dioxide Level 26 mmol/L (21-32) Anion Gap 10 (6-14) Blood Urea Nitrogen 10 mg/dL (7-20) Creatinine 1.0 mg/dL (0.6-1.0) Estimated GFR (Cockcroft-Gault) 71.0 BUN/Creatinine Ratio 10 (6-20) Glucose Level 148 mg/dL (70-99) Calcium Level 9.0 mg/dL (8.5-10.1) Magnesium Level 1.9 mg/dL (1.8-2.4) Total Bilirubin 0.2 mg/dL (0.2-1.0) Aspartate Amino Transf (AST/SGOT) 17 U/L (15-37) Alanine Aminotransferase (ALT/SGPT) 15 U/L (14-59) Alkaline Phosphatase 60 U/L (46-116) Troponin I Quantitative < 0.017 ng/mL (0.000-0.055) Total Protein 7.6 g/dL (6.4-8.2) Albumin 3.6 g/dL (3.4-5.0) Albumin/Globulin Ratio 0.9 (1.0-1.7) Thyroid Stimulating Hormone (TSH) 0.774 uIU/mL (0.358-3.74) Free Thyroxine 0.90 ng/dL (0.76-1.46) Triglycerides Level 141 mg/dL (0-150) Cholesterol Level 168 mg/dL (0-200) LDL Cholesterol, Calculated 115 mg/dL (0-100) VLDL Cholesterol, Calculated 28 mg/dL (0-40) Non-HDL Cholesterol Calculated 143 mg/dL (0-129) HDL Cholesterol 25 mg/dL (40-60) Cholesterol/HDL Ratio 6.7 Laboratory Tests Test 12/20/18 15:46 12/20/18 16:03 12/21/18 06:08 Bedside Urine HCG, Qualitative Hcg negative (Negative) White Blood Count 5.7 x10^3/uL (4.0-11.0) Red Blood Count 4.40 x10^6/uL (3.50-5.40) Hemoglobin 13.4 g/dL (12.0-15.5) Hematocrit 40.4 % (36.0-47.0) Mean Corpuscular Volume 92 fL (79-100) Mean Corpuscular Hemoglobin 31 pg (25-35) Mean Corpuscular Hemoglobin Concent 33 g/dL (31-37) Red Cell Distribution Width 14.5 % (11.5-14.5) Platelet Count 296 x10^3/uL (140-400) Neutrophils (%) (Auto) 36 % (31-73) Lymphocytes (%) (Auto) 56 % (24-48) Monocytes (%) (Auto) 6 % (0-9) Eosinophils (%) (Auto) 2 % (0-3) Basophils (%) (Auto) 1 % (0-3) Neutrophils # (Auto) 2.0 x10^3/uL (1.8-7.7) Lymphocytes # (Auto) 3.2 x10^3/uL (1.0-4.8) Monocytes # (Auto) 0.4 x10^3/uL (0.0-1.1) Eosinophils # (Auto) 0.1 x10^3/uL (0.0-0.7) Basophils # (Auto) 0.1 x10^3/uL (0.0-0.2) Prothrombin Time 12.8 SEC (11.7-14.0) Prothromb Time International Ratio 1.0 (0.8-1.1) Sodium Level 142 mmol/L (136-145) Potassium Level 3.6 mmol/L (3.5-5.1) Chloride Level 106 mmol/L (98-107) Carbon Dioxide Level 26 mmol/L (21-32) Anion Gap 10 (6-14) Blood Urea Nitrogen 10 mg/dL (7-20) Creatinine 1.0 mg/dL (0.6-1.0) Estimated GFR (Cockcroft-Gault) 71.0 BUN/Creatinine Ratio 10 (6-20) Glucose Level 148 mg/dL (70-99) Calcium Level 9.0 mg/dL (8.5-10.1) Magnesium Level 1.9 mg/dL (1.8-2.4) Total Bilirubin 0.2 mg/dL (0.2-1.0) Aspartate Amino Transf (AST/SGOT) 17 U/L (15-37) Alanine Aminotransferase (ALT/SGPT) 15 U/L (14-59) Alkaline Phosphatase 60 U/L (46-116) Troponin I Quantitative < 0.017 ng/mL (0.000-0.055) Total Protein 7.6 g/dL (6.4-8.2) Albumin 3.6 g/dL (3.4-5.0) Albumin/Globulin Ratio 0.9 (1.0-1.7) Thyroid Stimulating Hormone (TSH) 0.774 uIU/mL (0.358-3.74) Free Thyroxine 0.90 ng/dL (0.76-1.46) Triglycerides Level 141 mg/dL (0-150) Cholesterol Level 168 mg/dL (0-200) LDL Cholesterol, Calculated 115 mg/dL (0-100) VLDL Cholesterol, Calculated 28 mg/dL (0-40) Non-HDL Cholesterol Calculated 143 mg/dL (0-129) HDL Cholesterol 25 mg/dL (40-60) Cholesterol/HDL Ratio 6.7 Brief Hospital Course Ms. Martinez is a 48 old female admit with headache, parathesias related to migrane and anxiety disorder, slept hard overnight, felt better she has not been taking her trazodone, feels like she doesnt breathe well when she sleeps, I asked her to have her PCP follow Discharge Information Condition at Discharge: Improved Follow Up: Weeks Disposition/Orders: D/C to Home Scheduled Albuterol Sulfate (Ventolin Hfa Inhaler) 18 Gm Hfa.aer.ad, 2 PUFF INH Q4HRS for FOR ASTHMA, #1 Ref 0 Prescribed by: CAMERON RONDON on 06/26/151946 Last Action: Converted on 12/20/181818 by SHAMAR GUZMAN Pantoprazole Sodium (Protonix ) 40 Mg Tablet.dr, 40 MG PO DAILY, #30 Prescribed by: PRAVEENA MCCLURE MD on 04/09/15957 Last Action: Continued on 12/20/181818 by SHAMAR GUZMAN Scheduled PRN Acetaminophen With Codeine (Tylenol With Codeine #3 Tablet) 1 Each Tablet, 1 TAB PO PRN Q4HRS PRN for PAIN, #20 Prescribed by: SHERLYN HILLMAN D.O. on 08/08/17 0028 Last Action: Continued on 12/20/181818 by SHAMAR GUZMAN Alprazolam (Alprazolam) 0.25 Mg Tablet, 0.25 MG PO PRN Q8HRS PRN for ANXIETY / AGITATION, #30 Prescribed by: ROB HARKINS on 12/21/18 1201 Cyclobenzaprine Hcl (Cyclobenzaprine Hcl) 10 Mg Tablet, 1 TAB PO TID PRN for MUSCLE PAIN, #30 Prescribed by: JENNIFER RODRIGUEZ D.O. on 03/04/161943 Last Action: Continued on 12/20/181818 by SHAMAR GUZMAN Discontinued Medications Benzonatate (Tessalon Perle) 100 Mg Capsule, 1 CAP PO TID, #21 Prescribed by: RAMON ASHRAF MD on 02/21/172 Last Action: HELD on 12/20/181818 by SHAMAR GUZMAN Cephalexin (Keflex) 500 Mg Capsule, 1 CAP PO BID, #5 First dose given in the emergency department. Prescribed by: REI MARK D.O. on 12/20/15408 Last Action: HELD on 12/20/181818 by SHAMAR GUZMAN Cyclobenzaprine Hcl (Cyclobenzaprine Hcl) 10 Mg Tablet, 1 TAB PO TID, #30 Prescribed by: Batsheva Steve APRN on 11/07/15 1213 Last Action: HELD on 12/20/181818 by SHAMAR GUZMAN Cyclobenzaprine Hcl (Cyclobenzaprine Hcl) 10 Mg Tablet, 10 MG PO TID PRN for PAIN, #12 Prescribed by: REI MARK D.O. on 12/20/15408 Last Action: HELD on 12/20/181818 by SHAMAR GUZMAN Cyclobenzaprine Hcl (Cyclobenzaprine Hcl) 10 Mg Tablet, 10 MG PO TID, #30 Prescribed by: TONIA WILLIS APRN on 03/20/171854 Last Action: HELD on 12/20/181818 by SHAMAR GUZMAN Doxycycline Hyclate (Doxycycline Hyclate) 100 Mg Tablet, 1 TAB PO BID, #14 Prescribed by: RAMON ASHRAF MD on 02/21/17 2312 Last Action: HELD on 12/20/181818 by SHAMAR GUZMAN Hydrocodone/Apap 5-325 ([place] 5-325 Tablet) 1 Each Tablet, 1-2 TAB PO Q4-6HRS, #10 Prescribed by: Batsheva Steve APRN on 11/07/15 1213 Last Action: HELD on 12/20/181818 by SHAMAR GUZMAN Hydrocodone/Apap 5-325 ([place] 5-325 Tablet) 1 Each Tablet, 1 TAB PO PRN Q6HRS PRN for PAIN, #20 Prescribed by: JENNIFER RODRIGUEZ D.O. on 03/04/161943 Last Action: Continued on 12/20/181818 by SHAMAR GUZMAN Hydroxyzine Hcl (Hydroxyzine Hcl) 25 Mg Tablet, 1 TAB PO TID for anxiety, #15 Prescribed by: YAMIL LOPEZ D.O. on 12/06/178 Last Action: Continued on 12/20/181818 by SHAMAR GUZMAN Metronidazole (Flagyl) 500 Mg Tablet, 1 TAB PO BID, #14 Prescribed by: Batsheva Steve APRN on 11/07/15 1213 Last Action: HELD on 12/20/181818 by SHAMAR GUZMAN Ondansetron (Zofran Odt) 4 Mg Tab.rapdis, 1 TAB SL Q8HRS, #10 Prescribed by: ELADIO SOLORIO MD on 09/25/15 0047 Last Action: HELD on 12/20/181818 by SHAMAR GUZMAN Ondansetron (Ondansetron Odt) 4 Mg Tab.rapdis, 1 TAB PO PRN Q6-8HRS, #16 Prescribed by: Batsheva Steve APRN on 02/09/181827 Last Action: Continued on 12/20/181818 by SHAMAR GUZMAN Oxycodone/Apap 5-325 (Percocet 5-325 Mg Tablet ) 1 Each Tablet, 1 TAB PO PRN Q6HRS PRN for PAIN, #14 Prescribed by: ELADIO SOLORIO MD on 09/25/157 Last Action: Continued on 12/20/181818 by SHAMAR GUZMAN Prednisone (Prednisone) 20 Mg Tablet, 40 MG PO DAILY for 5 Days Prescribed by: CAMERON RONDON on 06/26/151946 Last Action: HELD on 12/20/181818 by SHAMAR GUZMAN Sulfamethoxazole/Trimethoprim (Bactrim Ds Tablet) 1 Each Tablet, 2 TAB PO BID for 10 Days Prescribed by: SAL COLES MD on 12/29/16 2340 Last Action: HELD on 12/20/181818 by SHAMAR GUZMAN Tramadol Hcl (Ultram) 50 Mg Tablet, 50 MG PO Q6H PRN for PAIN, #20 Ref 0 Prescribed by: CAMERON RONDON on 06/26/151946 Last Action: Continued on 12/20/181818 by SHAMAR GUZMAN Tramadol Hcl (Ultram) 50 Mg Tablet, 1 TAB PO Q6HRS, #10 Prescribed by: SAL COLES MD on 09/24/16 0253 Last Action: HELD on 12/20/181818 by SHAMAR GUZMAN Patient Instructions Patient Instructions > 30 min face to face ROB HARKINS MD Dec 21, 2018 12:03
[2018-12-21 15:26] VITALS: BP 116/59
[2018-12-21] MEDS ORDERED: GABAPENTIN 100 MG CAPSULE. PO SCH (15:30)
--- NOTE | 2018-12-21 15:36 | PDOC2 ---
NEUROLOGY CONSULT Date of Admission Date of Admission DATE: 12/21/18 TIME: 15:19 Reason for Consult Reason for Consult: IMPRESSION: Intermittent numbness in hands for over a month. DM. HTN. HLD. Smoking. Obesity. RECOMMENDATIONS/PLAN: Neurontin 100 mg tid. ASA daily. Lipitor 10 mg HS. Lab: see orders. FU with PCP. HCT: negative. CTA: negative. History of Present Illness This is a 48-year-old AA female patient who presented to the emergency department of [facility] for evaluation. She states that she has been feeling intermittent symptoms of numbness or paresthesia in her hands and feet when she woke up, but not every morning except some mornings. She stated she had some intermittent left-sided weakness as well. She denies any new pain, headache, vision changes, blurred vision, diplopia, aphasia, motor deficits, urinary or bowel dysfunction. No symptoms of radiculopathy. She admitted to having a history of anxiety, and states that she had a panic attack on Wednesday, and has had paresthesias since that time. There are no alleviating or exacerbating factors to her symptoms otherwise. She stated she had narcotics and still required it for her back pain. Past Medical History Cardiovascular: No pertinent hx, HTN Pulmonary: No pertinent hx CENTRAL NERVOUS SYSTEM: Migraine GI: GERD Heme/Onc: No pertinent hx Hepatobiliary: No pertinent hx Psych: Anxiety Musculoskeletal: Osteoarthritis, Other Rheumatologic: No pertinent hx Infectious disease: No pertinent hx Renal/: Urinary Incontinence, Other Endocrine: Diabetes Past Surgical History , Tubal Ligation Family History Coronary Artery Disease Allergies Coded Allergies: No Known Medication Allergies (Verified Allergy, Unknown, 02/09/18) ibuprofen (Verified Adverse Reaction, Intermediate, Nausea, 11/07/15) naproxen (Verified Adverse Reaction, Intermediate, Nausea, 11/07/15) MEDICATIONS: Refer to [facility] SOCIAL HISTORY: Lives at home with her boyfriend. She stated she has been on disability. She smokes about 1/2 pack of cigarettes a day for about 26 years. She drinks alcohol from time to time. She denied illicit drug use. REVIEW OF SYSTEMS: Constitutional: No malnutrition, weight loss, cachexia. Head: No traumatic brain or head injury. Skin: No edema, or rash. Ear: No infection, tinnitus. Eyes: No vision loss or color blindness. Nose: No bleeding or purulent discharges. Hearing: No hearing decrease. Neck: No injury. Breast: No history of cancer, masses,or discharges. Cardiac: No HI, arrhythmia,claudication, CAD, s/p CABG, AFib, Pacemaker Placement, HTN, HLD. Pulmonary: No pneumonia, COPD. GI: No GI ulcer, GI bleeding, GERD. Urinary/genital: No dysuria, hematuria, incontinence, urinary retention, UTI. Endocrinologic: No cousin face, craniofacial dysmorphism, polydactyly, goiter,Diabetes Mellitus, hypothyroidism, obesity, morbid obesity. Skeletomuscular: No muscular atrophy, deformity, Generalized weakness. Neurological: see HP. Psychiatric: Denies drug use/abuse. Otherwise, not [id number] review of systems. PHYSICAL EXAMINATION: General appearance is in no acute distress. HEENT: Normocephalic and nontraumatic. Eyes, nose, ears, and throat are unremarkable. Neck is supple. No lymphadenopathy. No bruits are heard over the carotid artery. No crepitus. Cardiovascular: S1, S2, regular rate and rhythm. Pulmonary: Clear to auscultation bilaterally. Abdomen: Bowel sounds are positive. Abdomen is soft, nontender, and nondistended. Extremities: No rash, lesions, or edema. No restriction of range of motion NEUROLOGICAL EXAMINATION: Alert Oriented to time, place and person. PERRL. EOMI. CN: no focal findings. Muscle tone: within normal. Muscle strength: 5 DTR: 2 Plantar reflex: Flexor/Neutral response bilaterally Gait: not examined in bed. At baseline normal. Sensory exam: no abnormal findings. No cerebellar signs elicited. F-T-N test accurate. Current Medications Current Medications Current Medications Lorazepam (Ativan Inj) 0.5 mg 1X ONCE IVP Last administered on 12/20/18at 16:09; Start 12/20/18 at 16:00; Stop 12/20/18 at 16:01; Status DC Sodium Chloride 1,000 ml @ 100 mls/hr Q10H IV Last administered on 12/20/18at 16:09; Start 12/20/18 at 15:50; Stop 12/21/18 at 01:50; Status DC Iohexol (Omnipaque 350 Mg/ml) 75 ml 1X ONCE IV Last administered on 12/20/18at 16:30; Start 12/20/18 at 16:30; Stop 12/20/18 at 16:31; Status DC Info (CONTRAST GIVEN -- Rx MONITORING) 1 each PRN DAILY PRN MC SEE COMMENTS; Start 12/20/18 at 16:30; Stop 12/22/18 at 16:29 Acetaminophen/ Codeine Phosphate (Tylenol #3) 1 tab PRN Q4HRS PRN PO MODERATE PAIN; Start 12/20/18 at 18:15 Cyclobenzaprine HCl (Flexeril) 10 mg PRN TID PRN PO MUSCLE PAIN; Start 12/20/18 at 18:15 Acetaminophen/ Hydrocodone Bitart (Lortab 5/325) 1 tab PRN Q6HRS PRN PO SEVERE PAIN, 1ST CHOICE; Start 12/20/18 at 18:15 Hydroxyzine HCl (Atarax) 25 mg PRN TID PRN PO ITCHING; Start 12/20/18 at 21:00 Ondansetron HCl (Zofran Odt) 4 mg PRN QID PRN PO n/v; Start 12/20/18 at 18:15 Oxycodone/ Acetaminophen (Percocet 5/325) 1 tab PRN Q6HRS PRN PO SEVERE PAIN, 2ND CHOICE; Start 12/20/18 at 18:15 Pantoprazole Sodium (Protonix) 40 mg DAILYAC PO Last administered on 12/21/18at 11:28; Start 12/21/18 at 07:30 Tramadol HCl (Ultram) 50 mg PRN Q6HRS PRN PO MILD PAIN 1-3; Start 12/20/18 at 18:15 Albuterol Sulfate (Ventolin Neb Soln) 2.5 mg Q4HRS NEB Last administered on 12/21/18at 12:04; Start 12/20/18 at 20:00 Zolpidem Tartrate (Ambien) 5 mg PRN QHS PRN PO INSOMNIA; Start 12/20/18 at 18:30 Aspirin (Ecotrin) 81 mg DAILYWBKFT PO Last administered on 12/21/18at 11:29; Start 12/21/18 at 08:00 Alprazolam (Xanax) 0.25 mg PRN Q8HRS PRN PO ANXIETY / AGITATION; Start 12/20/18 at 18:30 Morphine Sulfate (Morphine Sulfate) 1 mg PRN Q2HR PRN IV PAIN; Start 12/20/18 at 18:30 Atorvastatin Calcium (Lipitor) 10 mg QHS PO ; Start 12/21/18 at 21:00 Active Scripts Active Alprazolam 0.25 Mg Tablet 0.25 Mg PO PRN Q8HRS PRN Tylenol With Codeine #3 Tablet (Acetaminophen/Codeine Phosphate) 1 Each Tablet 1 Tab PO PRN Q4HRS PRN Cyclobenzaprine Hcl 10 Mg Tablet 1 Tab PO TID PRN Ventolin Hfa Inhaler (Albuterol Sulfate) 18 Gm Hfa.aer.ad 2 Puff INH Q4HRS Protonix (Pantoprazole Sodium) 40 Mg Tablet.dr 40 Mg PO DAILY Allergies Allergies: Allergies Coded Allergies Type Severity Reaction Last Updated Verified ibuprofen Adverse Reaction Intermediate Nausea 11/07/15 Yes naproxen Adverse Reaction Intermediate Nausea 11/07/15 Yes ROS Review of System The patient denies any associated fevers, chills, headache, ear pain, rhinorrhea, sore throat, stiff neck, productive cough, chest pain, shortness of breath, back or flank pain, abdominal pain, nausea, vomiting, diarrhea, constipation, dysuria, rash, numbness, weakness, tingling, incontinence, difficulty ambulating, or diaphoresis. Physical Exam Physical Exam General: Well developed, well nourished, no acute distress, well appearing HEENT: Pupils equally round and reactive to light, EOMI, no discharge, normal conjunctiva Neck: Supple, no nuchal rigidity, no JVD, trachea midline, no tenderness Cardiac: RRR, no murmurs, no gallops, no rubs Chest/Lungs: CTAB, no wheeze, no rhonchi, no crackles Abdomen: soft, non-distended, no guarding, no peritoneal signs, non-tender Back: No tenderness Extremities: no edema, pulses intact, non-tender,capillary refill <3 sec bilateral upper and lower extremities, Neuro: Alert and oriented x 4, no focal deficits, normal speech Vitals Vitals: Vital Signs Date Time Temp Pulse Resp B/P (MAP) Pulse Ox O2 Delivery O2 Flow Rate FiO2 12/21/18 12:05 98 Room Air 12/21/18 11:15 98.1 69 18 105/55 (72) 98.1 Labs Labs Laboratory Tests Test 12/20/18 15:46 12/20/18 16:03 12/21/18 06:08 Bedside Urine HCG, Qualitative Hcg negative (Negative) White Blood Count 5.7 x10^3/uL (4.0-11.0) Red Blood Count 4.40 x10^6/uL (3.50-5.40) Hemoglobin 13.4 g/dL (12.0-15.5) Hematocrit 40.4 % (36.0-47.0) Mean Corpuscular Volume 92 fL (79-100) Mean Corpuscular Hemoglobin 31 pg (25-35) Mean Corpuscular Hemoglobin Concent 33 g/dL (31-37) Red Cell Distribution Width 14.5 % (11.5-14.5) Platelet Count 296 x10^3/uL (140-400) Neutrophils (%) (Auto) 36 % (31-73) Lymphocytes (%) (Auto) 56 % (24-48) Monocytes (%) (Auto) 6 % (0-9) Eosinophils (%) (Auto) 2 % (0-3) Basophils (%) (Auto) 1 % (0-3) Neutrophils # (Auto) 2.0 x10^3/uL (1.8-7.7) Lymphocytes # (Auto) 3.2 x10^3/uL (1.0-4.8) Monocytes # (Auto) 0.4 x10^3/uL (0.0-1.1) Eosinophils # (Auto) 0.1 x10^3/uL (0.0-0.7) Basophils # (Auto) 0.1 x10^3/uL (0.0-0.2) Prothrombin Time 12.8 SEC (11.7-14.0) Prothromb Time International Ratio 1.0 (0.8-1.1) Sodium Level 142 mmol/L (136-145) Potassium Level 3.6 mmol/L (3.5-5.1) Chloride Level 106 mmol/L (98-107) Carbon Dioxide Level 26 mmol/L (21-32) Anion Gap 10 (6-14) Blood Urea Nitrogen 10 mg/dL (7-20) Creatinine 1.0 mg/dL (0.6-1.0) Estimated GFR (Cockcroft-Gault) 71.0 BUN/Creatinine Ratio 10 (6-20) Glucose Level 148 mg/dL (70-99) Calcium Level 9.0 mg/dL (8.5-10.1) Magnesium Level 1.9 mg/dL (1.8-2.4) Total Bilirubin 0.2 mg/dL (0.2-1.0) Aspartate Amino Transf (AST/SGOT) 17 U/L (15-37) Alanine Aminotransferase (ALT/SGPT) 15 U/L (14-59) Alkaline Phosphatase 60 U/L (46-116) Troponin I Quantitative < 0.017 ng/mL (0.000-0.055) Total Protein 7.6 g/dL (6.4-8.2) Albumin 3.6 g/dL (3.4-5.0) Albumin/Globulin Ratio 0.9 (1.0-1.7) Thyroid Stimulating Hormone (TSH) 0.774 uIU/mL (0.358-3.74) Free Thyroxine 0.90 ng/dL (0.76-1.46) Triglycerides Level 141 mg/dL (0-150) Cholesterol Level 168 mg/dL (0-200) LDL Cholesterol, Calculated 115 mg/dL (0-100) VLDL Cholesterol, Calculated 28 mg/dL (0-40) Non-HDL Cholesterol Calculated 143 mg/dL (0-129) HDL Cholesterol 25 mg/dL (40-60) Cholesterol/HDL Ratio 6.7 Vitamin B12 Level 307 pg/mL (247-911) Laboratory Tests Test 12/20/18 15:46 12/20/18 16:03 12/21/18 06:08 Bedside Urine HCG, Qualitative Hcg negative (Negative) White Blood Count 5.7 x10^3/uL (4.0-11.0) Red Blood Count 4.40 x10^6/uL (3.50-5.40) Hemoglobin 13.4 g/dL (12.0-15.5) Hematocrit 40.4 % (36.0-47.0) Mean Corpuscular Volume 92 fL (79-100) Mean Corpuscular Hemoglobin 31 pg (25-35) Mean Corpuscular Hemoglobin Concent 33 g/dL (31-37) Red Cell Distribution Width 14.5 % (11.5-14.5) Platelet Count 296 x10^3/uL (140-400) Neutrophils (%) (Auto) 36 % (31-73) Lymphocytes (%) (Auto) 56 % (24-48) Monocytes (%) (Auto) 6 % (0-9) Eosinophils (%) (Auto) 2 % (0-3) Basophils (%) (Auto) 1 % (0-3) Neutrophils # (Auto) 2.0 x10^3/uL (1.8-7.7) Lymphocytes # (Auto) 3.2 x10^3/uL (1.0-4.8) Monocytes # (Auto) 0.4 x10^3/uL (0.0-1.1) Eosinophils # (Auto) 0.1 x10^3/uL (0.0-0.7) Basophils # (Auto) 0.1 x10^3/uL (0.0-0.2) Prothrombin Time 12.8 SEC (11.7-14.0) Prothromb Time International Ratio 1.0 (0.8-1.1) Sodium Level 142 mmol/L (136-145) Potassium Level 3.6 mmol/L (3.5-5.1) Chloride Level 106 mmol/L (98-107) Carbon Dioxide Level 26 mmol/L (21-32) Anion Gap 10 (6-14) Blood Urea Nitrogen 10 mg/dL (7-20) Creatinine 1.0 mg/dL (0.6-1.0) Estimated GFR (Cockcroft-Gault) 71.0 BUN/Creatinine Ratio 10 (6-20) Glucose Level 148 mg/dL (70-99) Calcium Level 9.0 mg/dL (8.5-10.1) Magnesium Level 1.9 mg/dL (1.8-2.4) Total Bilirubin 0.2 mg/dL (0.2-1.0) Aspartate Amino Transf (AST/SGOT) 17 U/L (15-37) Alanine Aminotransferase (ALT/SGPT) 15 U/L (14-59) Alkaline Phosphatase 60 U/L (46-116) Troponin I Quantitative < 0.017 ng/mL (0.000-0.055) Total Protein 7.6 g/dL (6.4-8.2) Albumin 3.6 g/dL (3.4-5.0) Albumin/Globulin Ratio 0.9 (1.0-1.7) Thyroid Stimulating Hormone (TSH) 0.774 uIU/mL (0.358-3.74) Free Thyroxine 0.90 ng/dL (0.76-1.46) Triglycerides Level 141 mg/dL (0-150) Cholesterol Level 168 mg/dL (0-200) LDL Cholesterol, Calculated 115 mg/dL (0-100) VLDL Cholesterol, Calculated 28 mg/dL (0-40) Non-HDL Cholesterol Calculated 143 mg/dL (0-129) HDL Cholesterol 25 mg/dL (40-60) Cholesterol/HDL Ratio 6.7 Vitamin B12 Level 307 pg/mL (247-911) CHELY HODGES MD Dec 21, 2018 15:36
--- NOTE | 2018-12-21 16:26 | NUR ---
Pt escorted via financial secretary Gabriela to private vehicle with son, pain med given.
[2018-12-21] MEDS ORDERED: ATORVASTATIN CALCIUM 10 MG TABLET. PO SCH (21:00)
== END 2018-12-21 16:25 | disposition home or self-care (01) ==
LOC: ER 15:19 → 6 SOUTH 18:00
PROVIDERS: ADMIT Internal Medicine; ATTEND Internal Medicine
DX: R20.2 Paresthesia of skin (principal); G43.909 Migraine, unspecified, not intractable, without status migrainosus; K21.9 Gastro-esophageal reflux disease without esophagitis; M19.90 Unspecified osteoarthritis, unspecified site; E11.9 Type 2 diabetes mellitus without complications; E66.9 Obesity, unspecified; F17.210 Nicotine dependence, cigarettes, uncomplicated; E78.5 Hyperlipidemia, unspecified; I10 Essential (primary) hypertension; F41.0 Panic disorder [episodic paroxysmal anxiety]; Z79.82 Long term (current) use of aspirin; Z68.32 Body mass index [BMI] 32.0-32.9, adult
CPT/HCPCS: 36415; 70450; 70496; 70498; 71045; 80053; 80061; 81025; 82607; 83735; 84439; 84443; 84484; 85025; 85610; 93005; 94640; 96374; 96375; 99284; 99406; G0378; J2060; J7030; J7613; Q9967; G0379

== ENCOUNTER 2019-01-22 06:14 | Emergency (ER) | payer OTHER ==
[~2019-01-22] VITALS: Ht 162.6 cm; Wt 74.8 kg
[~2019-01-22 06:14] MED LIST changes: +ALPR0.254 PO
--- NOTE | 2019-01-22 06:45 | PHYS DOC ---
Past Medical History Past Medical History: Anxiety, Diabetes-Type II, Hypertension Additional Past Medical Histor: NEUROPATHY, chronic back pain, SLEEP APNEA Past Surgical History: Tubal ligation Alcohol Use: Occasionally Drug Use: Marijuana Adult General Chief Complaint Chief Complaint: CHEST PAIN HPI HPI Patient is a 48 year old female patient with history of hypertension, diabetes mellitus, anxiety, chronic back pain, neuropathy and sleep apnea who presents with complaint of chest pain (patient showing epigastric area as her chest pain area). Patient complaining of intermittent episodes of epigastric bloating pain for the last 4 days that usually lasts about one second and radiated to her back and associated with nausea. Patient states she had 1 episode of vomiting yesterday and complaining of few episode of loose stools. Patient rated her pain for over 10 and denies fever and chills, urinary symptom, history of the same pain. Patient states the pain getting worse with eating. Patient currently taking clindamycin 300 mg 4 times a day since January 11 for sinus infection. Review of Systems Review of Systems Constitutional: Denies fever or chills [] Eyes: Denies change in visual acuity, redness, or eye pain [] HENT: Denies nasal congestion or sore throat [] Respiratory: Denies cough or shortness of breath [] Cardiovascular: No additional information not addressed in HPI [] GI: Reports abdominal pain, nausea, vomiting, diarrhea [] : Denies dysuria or hematuria [] Musculoskeletal: Denies back pain or joint pain [] Integument: Denies rash or skin lesions [] Neurologic: Denies headache, focal weakness or sensory changes [] Endocrine: Denies polyuria or polydipsia [] All other systems were reviewed and found to be within normal limits, except as documented in this note. Current Medications Current Medications Current Medications Medications (Trade) Dose Ordered Sig/Isis Start Time Stop Time Status Last Admin Dose Admin Aspirin (Children'S Aspirin) 324 mg 1X ONCE 01/22/19 07:00 01/22/19 07:01 DC 01/22/19 07:01 324 MG Famotidine (Pepcid Vial) 20 mg 1X ONCE 01/22/19 07:00 01/22/19 07:01 DC 01/22/19 07:02 20 MG Allergies Allergies Allergies Coded Allergies Type Severity Reaction Last Updated Verified ibuprofen Adverse Reaction Intermediate Nausea 11/07/15 Yes naproxen Adverse Reaction Intermediate Nausea 11/07/15 Yes Physical Exam Physical Exam Constitutional: Well developed, well nourished, mild distress, non-toxic appearance. [] HENT: Normocephalic, atraumatic, moist oral mucosa. Eyes: PERRLA, EOMI, conjunctiva normal, no discharge. [] Neck: Normal range of motion, no tenderness, supple, no stridor. [] Cardiovascular:Heart rate regular rhythm, no murmur [] Lungs & Thorax: Bilateral breath sounds clear to auscultation [] Abdomen: Bowel sounds normal, soft, no tenderness, no masses, no pulsatile masses. [] Skin: Warm, dry, no erythema, no rash. [] Back: No tenderness, no CVA tenderness. [] Extremities: No tenderness, no cyanosis, no clubbing, ROM intact, no edema. [] Neurologic: Alert and oriented X 3, no focal deficits noted. [] Psychologic: Affect anxious, judgement normal, mood normal. [] Current Patient Data Vital Signs Vital Signs Date Time Temp Pulse Resp B/P (MAP) Pulse Ox O2 Delivery O2 Flow Rate FiO2 01/22/19 06:23 98.8 67 13 135/74 (94) 99 Room Air 98.8 Lab Values Laboratory Tests Test 01/22/19 06:26 White Blood Count 7.4 x10^3/uL (4.0-11.0) Red Blood Count 4.51 x10^6/uL (3.50-5.40) Hemoglobin 13.8 g/dL (12.0-15.5) Hematocrit 41.2 % (36.0-47.0) Mean Corpuscular Volume 91 fL (79-100) Mean Corpuscular Hemoglobin 31 pg (25-35) Mean Corpuscular Hemoglobin Concent 34 g/dL (31-37) Red Cell Distribution Width 14.3 % (11.5-14.5) Platelet Count 371 x10^3/uL (140-400) Neutrophils (%) (Auto) 19 % (31-73) L Lymphocytes (%) (Auto) 73 % (24-48) H Monocytes (%) (Auto) 6 % (0-9) Eosinophils (%) (Auto) 2 % (0-3) Basophils (%) (Auto) 1 % (0-3) Neutrophils # (Auto) 1.4 x10^3/uL (1.8-7.7) L Lymphocytes # (Auto) 5.4 x10^3/uL (1.0-4.8) H Monocytes # (Auto) 0.4 x10^3/uL (0.0-1.1) Eosinophils # (Auto) 0.1 x10^3/uL (0.0-0.7) Basophils # (Auto) 0.1 x10^3/uL (0.0-0.2) Platelet Estimate Pending Sodium Level 141 mmol/L (136-145) Potassium Level 3.8 mmol/L (3.5-5.1) Chloride Level 105 mmol/L (98-107) Carbon Dioxide Level 28 mmol/L (21-32) Anion Gap 8 (6-14) Blood Urea Nitrogen 8 mg/dL (7-20) Creatinine 1.0 mg/dL (0.6-1.0) Estimated GFR (Cockcroft-Gault) 71.0 BUN/Creatinine Ratio 8 (6-20) Glucose Level 100 mg/dL (70-99) H Calcium Level 9.6 mg/dL (8.5-10.1) Magnesium Level 2.3 mg/dL (1.8-2.4) Total Bilirubin 0.3 mg/dL (0.2-1.0) Aspartate Amino Transferase (AST) 20 U/L (15-37) Alanine Aminotransferase (ALT) 20 U/L (14-59) Alkaline Phosphatase 63 U/L (46-116) Creatine Kinase 207 U/L (26-192) H Troponin I Quantitative < 0.017 ng/mL (0.000-0.055) EE-Bbh-I-Type Natriuretic Peptide 7 pg/mL (0-124) Total Protein 8.2 g/dL (6.4-8.2) Albumin 3.8 g/dL (3.4-5.0) Albumin/Globulin Ratio 0.9 (1.0-1.7) L Lipase 45 U/L (73-393) L Laboratory Tests 01/22/19 06:26 Laboratory Tests 01/22/19 06:26 EKG EKG EKG interpreted by me. EKG at 0632 showed normal sinus rhythm at rate of 69, normal NM and QT intervals, no acute distress and T-wave elevation. Radiology/Procedures Radiology/Procedures [] [address] [place] [address] IMAGING REPORT Signed PATIENT: KEKE ADAM ACCOUNT: [id number] : 1970 LOCATION: ER AGE: 48 SEX: F EXAM STATUS: PRE ER ORD. PHYSICIAN: MICHELL WADSWORTH MD REASON: epigastric pain x4 days PROCEDURE: PORTABLE CHEST 1V EXAM: CHEST 1 VIEW History: Epigastric pain COMPARISON: 12/20/2018 TECHNIQUE: Single portable radiograph of the chest FINDINGS: The cardiac silhouette is unremarkable. The lungs are clear bilaterally. The costophrenic sulci are clear and well demarcated. IMPRESSION: No radiographic evidence of an acute cardiopulmonary process. Electronically signed by: Manuelito Lopez MD (01/22/2019 6:49 AM) [facility] DICTATED and SIGNED BY: MANUELITO LOPEZ MD DATE: 01/22/19 0649 [address] [place] [address] IMAGING REPORT Signed PATIENT: KEKE ADAM KACCOUNT: [id number] : 1970 LOCATION: ER AGE: 48 SEX: F EXAM STATUS: REG ER ORD. PHYSICIAN: MICHELL WADSWORTH MD REASON: epigastric pain, nausea and vomiting PROCEDURE: ABDOMEN LTD Abdominal ultrasound right upper quadrant: Reason for examination: Epigastric abdominal pain with nausea and vomiting. No abnormality seen at the pancreas. The inferior vena cava shows no acute abnormality. The liver is normal in size at 16.2 cm. There is a septated cystic lesion in the left lobe measuring 1.7 x 1.6 x 2.0 cm in greatest dimension. Gallbladder shows no cholelithiasis, sludge or wall thickening. Common bile duct is normal in caliber at 5 mm. Right kidney measures 11.1 x 4.5 x 4.2 cm in greatest dimension and shows normal cortical medullary differentiation with no hydronephrosis or mass. IMPRESSION: 2 cm septated cystic lesion in the left lobe of liver. No abnormality seen at the gallbladder. No other focal abnormality seen in the right upper quadrant. Electronically signed by: Snehal Pennington MD (01/22/2019 7:28 AM) [facility] DICTATED and SIGNED BY: SNEHAL PENNINGTON MD DATE: 01/22/19 0728 Course & Med Decision Making Course & Med Decision Making Pertinent Labs and Imaging studies reviewed. (See chart for details) Evaluation of patient in ER showed 48-year-old female patient with heart score of 3 and complaining of epigastric pain for 4 days intermittently after taking clindamycin for almost 10 days. Patient had unremarkable physical exam, labs, EKG, chest x-ray and gallbladder ultrasound. Patient felt better with treatment in ER. Patient advised to take the last day of antibiotics with food. I've spoken with the patient and/or caregivers. I've explained the patient's condition, diagnosis and treatment plan based on information available to me at this time. I've answered the patient's and/or caregivers questions and addressed any concerns. The patient and/or caregivers have a good understanding the patient's diagnosis, condition and treatment plan as can be expected at this point. Vital signs have been stabilized. The patient's condition is stable for discharge from the emergency department. The patient will pursue further outpatient evaluation with her primary care provider or other designated consulting physician as outlined in the discharge instructions. Patient and/or caregivers are agreeable to this plan of care and follow-up instructions have been explained in detail. The patient and/or caregivers have received these instructions in written format and expressed understanding of these discharge instructions. The patient and her caregivers are aware that if any significant change in condition or worsening of symptoms should prompt him to immediately return to this of the closest emergency department. If an emergent department is not readily available I would encourage him to call 911. Jenny Disclaimer Dragon Disclaimer This electronic medical record was generated, in whole or in part, using a voice recognition dictation system. Departure Departure Impression: Primary Impression: Medication side effect Additional Impression: Dyspepsia Disposition: HOME, SELF-CARE (at 0808) Condition: IMPROVED Referrals: LYNN DE LEON MD (PCP) Patient Instructions: Gastroesophageal Reflux Disease, Adult Additional Instructions: Drink plenty of liquids Follow-up with your primary care physician in 3-5 days Return to ER if not getting better Take your rest of antibiotic with food Scripts Ondansetron Hcl (ZOFRAN) 4 Mg Tablet 1 TAB PO PRN Q6-8HRS for nausea, #12 TAB Prov: MICHELL WADSWORTH MD 01/22/19 Ranitidine Hcl (ZANTAC) 150 Mg Tablet 1 TAB PO BID, #14 TAB Prov: MICHELL WADSWORTH MD 01/22/19 The HEART Score for CP Pts HEART Score for Chest Pain: HEART Score for Chest Pain Response (Comments) Value History Slighlty/Non-Suspicious 0 ECG Normal 0 Age >45 - < 65 1 Risk Factors >3 Risk Factors or Hx CAD 2 Troponin < Normal Limit 0 Total 3 Risk Factors: Risk Factors: DM, Current or recent (<one month) smoker, HTN, HLP, family history of CAD, obesity. Risk Scores: Score 0 - 3: 2.5% MACE over next 6 weeks - Discharge Home Score 4 - 6: 20.3% MACE over next 6 weeks - Admit for Clinical Observation Score 7 - 10: 72.7% MACE over next 6 weeks - Early Invasive Strategies Problem Qualifiers MICHELL WADSWORTH MD Jan 22, 2019 06:44
--- NOTE | 2019-01-22 06:52 | RAD ---
EXAM: CHEST 1 VIEW History: Epigastric pain COMPARISON: 12/20/2018 TECHNIQUE: Single portable radiograph of the chest FINDINGS: The cardiac silhouette is unremarkable. The lungs are clear bilaterally. The costophrenic sulci are clear and well demarcated. IMPRESSION: No radiographic evidence of an acute cardiopulmonary process. Electronically signed by: Manuelito Lopez MD (01/22/2019 6:49 AM) [facility]
[2019-01-22] MEDS ORDERED: ASPIRIN CHEWABLE 81 MG TABLET. PO ONE (07:00)
[2019-01-22] MEDS ORDERED: FAMOTIDINE 20 MG/2 ML VIAL IVP ONE (07:00)
[2019-01-22 07:03] LABS: BASO # 0.1 x10^3/uL (0.0-0.2); BASO % 1 % (0-3); EOS # 0.1 x10^3/uL (0.0-0.7); EOS % 2 % (0-3); HEMATOCRIT 41.2 % (36.0-47.0); HEMOGLOBIN 13.8 g/dL (12.0-15.5); LYMPH # 5.4 x10^3/uL (1.0-4.8); LYMPH % 73 % (24-48); MEAN CORPUSCULAR HEMOGLOBIN 31 pg (25-35); MEAN CORPUSCULAR HGB CONC 34 g/dL (31-37); MEAN CORPUSCULAR VOLUME 91 fL (79-100); MONO # 0.4 x10^3/uL (0.0-1.1); MONO % 6 % (0-9); NEUT # 1.4 x10^3/uL (1.8-7.7); NEUT % 19 % (31-73); PLATELET COUNT 371 x10^3/uL (140-400); RED BLOOD COUNT 4.51 x10^6/uL (3.50-5.40); RED CELL DISTRIBUTION WIDTH 14.3 % (11.5-14.5); WHITE BLOOD COUNT 7.4 x10^3/uL (4.0-11.0)
[2019-01-22 07:14] LABS: CALCIUM 9.6 mg/dL (8.5-10.1); POTASSIUM 3.8 mmol/L (3.5-5.1)
[2019-01-22 07:19] LABS: ALBUMIN 3.8 g/dL (3.4-5.0); ALBUMIN/GLOBULIN RATIO 0.9 (1.0-1.7); MAGNESIUM 2.3 mg/dL (1.8-2.4); TOTAL BILIRUBIN 0.3 mg/dL (0.2-1.0); TOTAL PROTEIN 8.2 g/dL (6.4-8.2)
--- NOTE | 2019-01-22 07:31 | RAD ---
Abdominal ultrasound right upper quadrant: Reason for examination: Epigastric abdominal pain with nausea and vomiting. No abnormality seen at the pancreas. The inferior vena cava shows no acute abnormality. The liver is normal in size at 16.2 cm. There is a septated cystic lesion in the left lobe measuring 1.7 x 1.6 x 2.0 cm in greatest dimension. Gallbladder shows no cholelithiasis, sludge or wall thickening. Common bile duct is normal in caliber at 5 mm. Right kidney measures 11.1 x 4.5 x 4.2 cm in greatest dimension and shows normal cortical medullary differentiation with no hydronephrosis or mass. IMPRESSION: 2 cm septated cystic lesion in the left lobe of liver. No abnormality seen at the gallbladder. No other focal abnormality seen in the right upper quadrant. Electronically signed by: Mireya Gallagher MD (01/22/2019 7:28 AM) [facility]
[2019-01-22 08:04] VITALS: BP 138/76
[2019-01-22] MEDS ORDERED: RANI-376 PO (08:11)
[2019-01-22] MEDS ORDERED: ONDA4TAB7 PO (08:11)
[2019-01-22 13:21] LABS: % ATYL 2 % (0-0); % BASOS 1 % (0-3); % EOS 3 % (0-5); % LYMPHS 74 % (24-48); % MONOS 3 % (0-10); % SEGS 17 % (35-66)
[2019-01-22 13:22] LABS: PLT ESTIMATE ADEQUATE (ADEQUATE)
--- NOTE | 2019-01-22 15:06 | EKG ---
[facility] [address] [place] [address] Test Date: 2019-01-22 Test Time: 06:23:51 Pat Name: KEKE ADAM Department: Room: Gender: F Private Investigator: : 1970 Requested By: MICHELL WADSWORTH Order Number: [id number] Reading MD: Narendra Monet MD Measurements Intervals [place] Rate: 69 P: 0 GA: 164 QRS: 18 QRSD: 72 T: 18 QT: 378 QTc: 406 Interpretive Statements SINUS RHYTHM Electronically Signed On 01-25-2019 11:06:07 [employer] by Narendra Monet MD
== END 2019-01-22 08:29 | disposition home or self-care (01) ==
LOC: ER 06:14
DX: R10.13 Epigastric pain (principal); T36.8X5A Adverse effect of other systemic antibiotics, initial encounter; R07.89 Other chest pain; R11.2 Nausea with vomiting, unspecified; R19.7 Diarrhea, unspecified; G89.29 Other chronic pain; I10 Essential (primary) hypertension; E11.40 Type 2 diabetes mellitus with diabetic neuropathy, unspecified; F41.9 Anxiety disorder, unspecified; Z98.51 Tubal ligation status; Z88.5 Allergy status to narcotic agent; Z88.8 Allergy status to other drugs, medicaments and biological substances; Y92.89 Other specified places as the place of occurrence of the external cause
CPT/HCPCS: 36415; 71045; 76705; 80053; 82550; 83690; 83735; 83880; 84484; 85007; 85025; 93005; 96374; 99285; J3490

== ENCOUNTER 2019-08-08 00:53 | Emergency (ER) | payer OTHER ==
[~2019-08-08] VITALS: Ht 162.6 cm; Wt 90.1 kg
[~2019-08-08 00:53] MED LIST changes: +ONDA4TAB7 PO; +RANI-376 PO
[2019-08-08] MEDS ORDERED: fentaNYL PF VIAL 100 MCG/2 ML VIAL IV PRN (01:15)
[2019-08-08 01:23] LABS: BILIRUBIN,URINE NEGATIVE (NEG); CLARITY,URINE CLOUDY; COLOR,URINE YELLOW; NITRITE,URINE NEGATIVE (NEG); PROTEIN,URINE NEGATIVE (NEG-TRACE); UROBILINOGEN,URINE 0.2 mg/dL (0.2 mg/dL)
[2019-08-08 01:28] LABS: AMORPHOUS SEDIMENT,UR PRESENT /HPF; BACTERIA,URINE FEW /HPF (0-FEW); RBC,URINE OCC /HPF (0-2); SQUAMOUS EPITHELIAL CELL,UR FEW /LPF; WBC,URINE OCC /HPF (0-4)
[2019-08-08] MEDS ORDERED: IV NORMAL SALINE 1000ML BAG 1,000 ML IV SCH (01:30)
[2019-08-08] MEDS ORDERED: ONDANSETRON PF 4 MG/2 ML VIAL. IVP ONE (01:30)
[2019-08-08 01:37] LABS: U PREG PATIENT NEGATIVE (NEG)
[2019-08-08 01:42] LABS: BASO % 1 % (0-3); EOS # 0.1 x10^3/uL (0.0-0.7); EOS % 2 % (0-3); HEMATOCRIT 39.3 % (36.0-47.0); HEMOGLOBIN 13.4 g/dL (12.0-15.5); LYMPH # 4.7 x10^3/uL (1.0-4.8); LYMPH % 65 % (24-48); MEAN CORPUSCULAR HEMOGLOBIN 31 pg (25-35); MEAN CORPUSCULAR HGB CONC 34 g/dL (31-37); MEAN CORPUSCULAR VOLUME 91 fL (79-100); MONO # 0.4 x10^3/uL (0.0-1.1); MONO % 5 % (0-9); NEUT % 28 % (31-73); PLATELET COUNT 314 x10^3/uL (140-400); RED CELL DISTRIBUTION WIDTH 14.8 % (11.5-14.5); WHITE BLOOD COUNT 7.3 x10^3/uL (4.0-11.0)
[2019-08-08 01:52] LABS: CALCIUM 8.8 mg/dL (8.5-10.1); CREATININE 1.1 mg/dL (0.6-1.0); GFR 63.4; POTASSIUM 3.6 mmol/L (3.5-5.1)
[2019-08-08 01:58] LABS: ALBUMIN 3.4 g/dL (3.4-5.0); ALBUMIN/GLOBULIN RATIO 0.9 (1.0-1.7); TOTAL BILIRUBIN 0.2 mg/dL (0.2-1.0); TOTAL PROTEIN 7.1 g/dL (6.4-8.2)
[2019-08-08] MEDS ORDERED: CONTRAST GIVEN. MC PRN (02:00)
[2019-08-08] MEDS ORDERED: IOHEXOL 300 MG/ML 100ML VIAL. IV ONE (02:30)
[2019-08-08 02:49] LABS: % ATYL 6 % (0-0); % LYMPHS 63 % (24-48); % MONOS 4 % (0-10); % SEGS 27 % (35-66); PLT ESTIMATE ADEQUATE (ADEQUATE)
--- NOTE | 2019-08-08 03:13 | RAD ---
CT HEAD INDICATION: Reason: left sided numbness/tingling COMPARISON: 12/20/2018 Exposure: One or more of the following individualized dose reduction techniques were utilized for this examination: 1. Automated exposure control 2. Adjustment of the mA and/or kV according to patient size 3. Use of iterative reconstruction technique TECHNIQUE: 5 mm contiguous axial images were obtained from the skull base to the vertex in both bone and soft tissue algorithm. FINDINGS: No abnormal attenuation within the brain parenchyma. No evidence of acute intracranial hemorrhage. No extra-axial fluid collections. No mass effect or midline shift. Ventricular size is appropriate. Basal cisterns are patent. No fractures identified.Serna-white differentiation is preserved.Globes and orbits are within normal limits. Paranasal sinuses and mastoid air cells are clear. IMPRESSION: No acute intracranial findings. Electronically signed by: Manuelito Lopez MD (08/08/2019 3:10 AM) [id number]
--- NOTE | 2019-08-08 03:23 | RAD ---
Examination: CT of the abdomen pelvis with IV contrast HISTORY: lower abdominal pain COMPARISON: 09/24/2016 TECHNIQUE: Axial CT images of the abdomen pelvis were performed with IV contrast. Coronal and sagittal reformats are performed. Exposure: One or more of the following individualized dose reduction techniques were utilized for this examination: 1. Automated exposure control 2. Adjustment of the mA and/or kV according to patient size 3. Use of iterative reconstruction technique Findings: The bibasilar lungs are clear. No evidence of free air identified in the abdomen. Cystic structures identified in the left lobe of the liver similar to prior exam. The spleen, adrenals grossly appears unremarkable. Gallbladder is mildly distended. The stomach is mildly distended. The visualized pancreas grossly appears unremarkable. The small bowel is nondilated. Feces and gas noted in the colon. Appendix is normal. The bilateral kidneys enhance symmetrically. Punctate 2 mm intrarenal collecting system calculus right kidney. Moderate aortic atherosclerosis. Enlarged appearing uterus. There is questionable fat stranding identified in the adnexa. L4 spondylolysis with anterolisthesis of L4 on L5. IMPRESSION: 1. Enlarged appearing uterus with questionable fat stranding identified in the adnexa, nonspecific. Ultrasound pelvis can be considered. 2. 2 mm punctate calculus right kidney. Electronically signed by: Manuelito Lopez MD (08/08/2019 3:20 AM) [id number]
--- NOTE | 2019-08-08 03:48 | PHYS DOC ---
Past Medical History Past Medical History: Anxiety, Diabetes-Type II, Hypertension Additional Past Medical Histor: NEUROPATHY, chronic back pain, SLEEP APNEA Past Surgical History: Tubal ligation Smoking Status: Current Every Day Smoker Alcohol Use: Occasionally Drug Use: Marijuana General Adult EDM: Chief Complaint: MULTIPLE COMPLAINTS HPI: HPI: Patient is a 49 year old female who arrives with multiple complaints to include left lower abdominal pain, left groin pain and left-sided numbness and tingling. Patient states that the numbness and tingling has been intermittent for about the last week. She states that the abdominal and groin pain has been present for the last 5 days but she states that is been constant. She rates pain at an 8 out of 10. She denies having had any vomiting or diarrhea though does admit to some nausea. She denies any fever. She also denies any chest pain or cough. [] Review of Systems: Review of Systems: Constitutional: Denies fever or chills. [] Respiratory: Denies cough or shortness of breath. [] Cardiovascular: Denies chest pain or edema. [] GI: Complains of lower abdominal pain without vomiting or diarrhea. [] : Denies dysuria. [] Neurologic: Denies headache. Complains of left-sided numbness and tingling [] A full 10 point review of systems has been reviewed and is otherwise negative. Heart Score: Risk Factors: Risk Factors: DM, Current or recent (<one month) smoker, HTN, HLP, family history of CAD, obesity. Risk Scores: Score 0 - 3: 2.5% MACE over next 6 weeks - Discharge Home Score 4 - 6: 20.3% MACE over next 6 weeks - Admit for Clinical Observation Score 7 - 10: 72.7% MACE over next 6 weeks - Early Invasive Strategies Current Medications: Current Medications Medications (Trade) Dose Ordered Sig/Isis Start Time Stop Time Status Last Admin Dose Admin Fentanyl Citrate (Fentanyl 2ml Vial) 25 mcg PRN Q15MIN PRN 08/08/19 01:15 08/09/19 01:14 08/08/19 01:46 25 MCG Info (CONTRAST GIVEN -- Rx MONITORING) 1 each PRN DAILY PRN 08/08/19 02:00 08/10/19 01:59 Iohexol (Omnipaque 300 Mg/ml) 75 ml 1X ONCE 08/08/19 02:30 08/08/19 02:31 DC 08/08/19 02:54 75 ML Ondansetron HCl (Zofran) 4 mg 1X ONCE 08/08/19 01:30 08/08/19 01:31 DC 08/08/19 01:46 4 MG Sodium Chloride 1,000 ml @ 1,000 mls/hr Q1H 08/08/19 01:30 08/08/19 02:29 DC 08/08/19 01:46 1,000 MLS/HR Allergies: Allergies: Allergies Coded Allergies Type Severity Reaction Last Updated Verified ibuprofen Adverse Reaction Intermediate Nausea 11/07/15 Yes naproxen Adverse Reaction Intermediate Nausea 11/07/15 Yes Physical Exam: PE: Constitutional: Well developed, well nourished, no acute distress, non-toxic appearance. [] HENT: Normocephalic, atraumatic, bilateral external ears normal, oropharynx moist, no oral exudates, nose normal. [] Eyes: PERRLA, EOMI, conjunctiva normal, no discharge. [] Neck: Normal range of motion, no tenderness, supple, no stridor. [] Cardiovascular: Regular rate and rhythm [] Lungs & Thorax: Bilateral breath sounds clear to auscultation [] Abdomen: Bowel sounds normal, soft, with left lower and mid abdominal tenderness. [] Skin: Warm, dry, no erythema, no rash. [] Extremities: No tenderness, no cyanosis, no clubbing, ROM intact, no edema. [] Neurologic: Alert and oriented X 3, no focal deficits noted. [] Current Patient Data: Labs: Laboratory Tests Test 08/08/19 01:05 08/08/19 01:30 Urine Collection Type Unknown Urine Color Yellow Urine Clarity Cloudy Urine pH 7.0 (<5.0-8.0) Urine Specific [place] 1.015 (1.000-1.030) Urine Protein Negative mg/dL (NEG-TRACE) Urine Glucose (UA) Negative mg/dL (NEG) Urine Ketones (Stick) Negative mg/dL (NEG) Urine Blood Negative (NEG) Urine Nitrite Negative (NEG) Urine Bilirubin Negative (NEG) Urine Urobilinogen Dipstick 0.2 mg/dL (0.2 mg/dL) Urine Leukocyte Esterase Negative (NEG) Urine RBC Occ /HPF (0-2) Urine WBC Occ /HPF (0-4) Urine Squamous Epithelial Cells Few /LPF Urine Amorphous Sediment Present /HPF Urine Bacteria Few /HPF (0-FEW) Urine Mucus Mod /LPF Urine Test Negative (NEG) White Blood Count 7.3 x10^3/uL (4.0-11.0) Red Blood Count 4.30 x10^6/uL (3.50-5.40) Hemoglobin 13.4 g/dL (12.0-15.5) Hematocrit 39.3 % (36.0-47.0) Mean Corpuscular Volume 91 fL (79-100) Mean Corpuscular Hemoglobin 31 pg (25-35) Mean Corpuscular Hemoglobin Concent 34 g/dL (31-37) Red Cell Distribution Width 14.8 % (11.5-14.5) H Platelet Count 314 x10^3/uL (140-400) Neutrophils (%) (Auto) 28 % (31-73) L Lymphocytes (%) (Auto) 65 % (24-48) H Monocytes (%) (Auto) 5 % (0-9) Eosinophils (%) (Auto) 2 % (0-3) Basophils (%) (Auto) 1 % (0-3) Neutrophils # (Auto) 2.0 x10^3/uL (1.8-7.7) Lymphocytes # (Auto) 4.7 x10^3/uL (1.0-4.8) Monocytes # (Auto) 0.4 x10^3/uL (0.0-1.1) Eosinophils # (Auto) 0.1 x10^3/uL (0.0-0.7) Basophils # (Auto) 0.0 x10^3/uL (0.0-0.2) Segmented Neutrophils % 27 % (35-66) L Lymphocytes % 63 % (24-48) H Atypical Lymphocytes % (Manual) 6 % (0-0) H Monocytes % 4 % (0-10) Platelet Estimate Adequate (ADEQUATE) Sodium Level 141 mmol/L (136-145) Potassium Level 3.6 mmol/L (3.5-5.1) Chloride Level 105 mmol/L (98-107) Carbon Dioxide Level 25 mmol/L (21-32) Anion Gap 11 (6-14) Blood Urea Nitrogen 8 mg/dL (7-20) Creatinine 1.1 mg/dL (0.6-1.0) H Estimated GFR (Cockcroft-Gault) 63.4 BUN/Creatinine Ratio 7 (6-20) Glucose Level 136 mg/dL (70-99) H Calcium Level 8.8 mg/dL (8.5-10.1) Total Bilirubin 0.2 mg/dL (0.2-1.0) Aspartate Amino Transferase (AST) 26 U/L (15-37) Alanine Aminotransferase (ALT) 37 U/L (14-59) Alkaline Phosphatase 50 U/L (46-116) Total Protein 7.1 g/dL (6.4-8.2) Albumin 3.4 g/dL (3.4-5.0) Albumin/Globulin Ratio 0.9 (1.0-1.7) L Lipase 43 U/L (73-393) L Laboratory Tests 08/08/19 01:30 Laboratory Tests 08/08/19 01:30 Vital Signs: Vital Signs Date Time Temp Pulse Resp B/P (MAP) Pulse Ox O2 Delivery O2 Flow Rate FiO2 08/08/19 02:00 68 19 107/50 (69) 98 Room Air 08/08/19 01:16 98.3 98.3 EKG: EKG: [] Radiology/Procedures: Radiology/Procedures: [] Impression: PROCEDURE: CT ABD PELV W/ IV CONTRST ONLY Examination: CT of the abdomen pelvis with IV contrast HISTORY: lower abdominal pain COMPARISON: 09/24/2016 TECHNIQUE: Axial CT images of the abdomen pelvis were performed with IV contrast. Coronal and sagittal reformats are performed. Exposure: One or more of the following individualized dose reduction techniques were utilized for this examination: 1. Automated exposure control 2. Adjustment of the mA and/or kV according to patient size 3. Use of iterative reconstruction technique Findings: The bibasilar lungs are clear. No evidence of free air identified in the abdomen. Cystic structures identified in the left lobe of the liver similar to prior exam. The spleen, adrenals grossly appears unremarkable. Gallbladder is mildly distended. The stomach is mildly distended. The visualized pancreas grossly appears unremarkable. The small bowel is nondilated. Feces and gas noted in the colon. Appendix is normal. The bilateral kidneys enhance symmetrically. Punctate 2 mm intrarenal collecting system calculus right kidney. Moderate aortic atherosclerosis. Enlarged appearing uterus. There is questionable fat stranding identified in the adnexa. L4 spondylolysis with anterolisthesis of L4 on L5. IMPRESSION: 1. Enlarged appearing uterus with questionable fat stranding identified in the adnexa, nonspecific. Ultrasound pelvis can be considered. 2. 2 mm punctate calculus right kidney. Electronically signed by: Manuelito Lopez MD (08/08/2019 3:20 AM) [id number] Course & Med Decision Making: Course & Med Decision Making Pertinent Labs and Imaging studies reviewed. (See chart for details) [] Dragon Disclaimer: Dragon Disclaimer: This electronic medical record was generated, in whole or in part, using a voice recognition dictation system. Departure Departure Impression: Primary Impression: Abdominal pain Qualified Codes: R10.9 - Unspecified abdominal pain Additional Impression: Paresthesia Disposition: 01 HOME, SELF-CARE Condition: STABLE Referrals: UNKNOWN PCP NAME (PCP) Patient Instructions: Abdominal Pain, Paresthesia Justicifation of Admission Dx: Justifications for Admission: Justification of Admission Dx: Comment: (Not applicable) ANA MARIA PIERRE Jr. DO Aug 08, 2019 03:48
[2019-08-08 04:00] VITALS: BP 143/63
== END 2019-08-08 04:10 | disposition home or self-care (01) ==
LOC: ER 00:53
DX: R10.32 Left lower quadrant pain (principal); R20.2 Paresthesia of skin; E11.40 Type 2 diabetes mellitus with diabetic neuropathy, unspecified; I10 Essential (primary) hypertension; G89.29 Other chronic pain; F17.200 Nicotine dependence, unspecified, uncomplicated; Z98.51 Tubal ligation status; Z88.5 Allergy status to narcotic agent; Z88.8 Allergy status to other drugs, medicaments and biological substances
CPT/HCPCS: 36415; 70450; 74177; 80053; 81001; 81025; 83690; 85007; 85025; 96374; 96375; 99285; J2405; J3010; J7030; Q9967

== ENCOUNTER 2019-09-27 23:25 | Observation (INO) | payer MEDICARE, OTHER ==
[~2019-09-27] VITALS: Ht 162.6 cm; Wt 91.0 kg
--- NOTE | 2019-09-27 23:43 | PHYS DOC ---
Past Medical History Past Medical History: Anxiety, Diabetes-Type II, Hypertension Additional Past Medical Histor: NEUROPATHY, chronic back pain, SLEEP APNEA Past Surgical History: Tubal ligation Smoking Status: Current Every Day Smoker Alcohol Use: Occasionally Drug Use: Marijuana General Adult EDM: Chief Complaint: CHEST PAIN HPI: HPI: 49-year-old female presents for chest pain that has been going on for 1 week now. She was seen at [facility] for similar symptoms 2 days ago, but she feels like the treatment she was given did not help any of her symptoms as she continues to have the same symptoms. She has a history of anxiety attacks for which she takes alprazolam as needed. She takes alprazolam almost daily for her anxiety, but has not taken it for the past week because she wanted to discern between these symptoms that she is currently feeling and symptoms of anxiety. She also states that she feels as if her throat is closing up and that it is exacerbated by eating food. She is obviously anxious and tearful when explaining these symptoms. She is afraid that she is having a heart attack or that she is having a pulmonary embolism. Present of our visit she stated that she also had a feeling of clots or pain which is worsening in her right leg. Cardiac risk factor of DM, HTN, family history, and smoking. Denies trauma. Review of Systems: Review of Systems: Constitutional: Denies fever or chills Eyes: Denies redness or eye pain HENT: Denies nasal congestion or sore throat Respiratory: Denies cough or shortness of breath Cardiovascular: Reports chest pain and feelings of palpitations GI: Reports abdominal pain : Denies dysuria or hematuria Musculoskeletal: Denies back pain or joint pain. Reports lower extremity pain Integument: Denies rash or skin lesions Neurologic: Denies headache, focal weakness or sensory changes Complete systems were reviewed and found to be within normal limits, except as documented in this note. Heart Score: HEART Score for Chest Pain: HEART Score for Chest Pain Response (Comments) Value History Moderately Suspicious 1 ECG Normal 0 Age >45 - < 65 1 Risk Factors >3 Risk Factors or Hx CAD 2 Troponin < Normal Limit 0 Total 4 Risk Factors: Risk Factors: DM, Current or recent (<one month) smoker, HTN, HLP, family history of CAD, obesity. Risk Scores: Score 0 - 3: 2.5% MACE over next 6 weeks - Discharge Home Score 4 - 6: 20.3% MACE over next 6 weeks - Admit for Clinical Observation Score 7 - 10: 72.7% MACE over next 6 weeks - Early Invasive Strategies Allergies: Allergies: Allergies Coded Allergies Type Severity Reaction Last Updated Verified ibuprofen Adverse Reaction Intermediate Nausea 11/07/15 Yes naproxen Adverse Reaction Intermediate Nausea 11/07/15 Yes Physical Exam: PE: Constitutional: Well developed, well nourished, no acute distress, non-toxic appearance HENT: Normocephalic, atraumatic Eyes: Conjunctiva normal, no discharge Neck: Normal range of motion, supple Lungs & Thorax: No respiratory distress, regular chest wall and rise bilateral Abdomen: Soft, no tenderness Skin: Warm, dry, no erythema, no rash Back: No tenderness, no CVA tenderness Extremities: Left calf tenderness noted, ROM intact, no edema Neurologic: Alert and oriented X 3, normal motor function, normal sensory function, no focal deficits noted Psychologic: Affect normal, judgment normal EKG: EKG: @0353, 72 bpm, FL equals 154, QT/QTc equals 372/409, sinus rhythm and regular rate Radiology/Procedures: Radiology/Procedures: PROCEDURE: VENOUS LOWER EXTREMITY LEFT Left lower extremity venous duplex Doppler ultrasound HISTORY: Left leg calf pain FINDINGS: No DVT by grayscale sonography with compressibility, patent color Doppler blood flow and augmentation of blood flow the left common femoral vein, profunda femoral vein, superficial femoral vein and popliteal vein. No DVT evident with patent color Doppler blood flow and augmentation of flow of the posterior tibial and peroneal veins in the calf. IMPRESSION: Negative left leg for DVT. Electronically signed by: True Kaur MD (09/28/2019 12:49 AM) [facility] PROCEDURE: CHEST PA & LATERAL PA lateral chest x-ray HISTORY: Chest pain. COMPARISON: Chest x-ray January 22, 2019. FINDINGS: Heart size normal. Mediastinal silhouette is normal. No pneumothorax, pulmonary opacities or pleural effusions. Bones are unremarkable. IMPRESSION: No acute process. Electronically signed by: True Kaur MD (09/28/2019 2:02 AM) [facility] Course & Med Decision Making: Course & Med Decision Making Patient presented to the emergency department for chest pain x 1 week. She states that the pain is much different than for when she has a panic attack. She was seen in [facility] emergency department 2 days ago for similar s ymptoms but was discharged without further work-up. Patient returned today because of worsening of symptoms including left calf pain and continued chest pain. Significant cardiac risk factors noted. Labs obtained and posted to chart. Initial troponin WNL. D-dimer also WNL. HEART score 4. Doppler ultrasound of LLE and chest x-ray both without acute process. Patient requiring admission for further evaluation and treatment. Discussed with Dr. Eric (hospitalist) who is in agreement with admission. Cardiology consultation placed. Discussed findings and plan with patient, who acknowledges understanding and agreement. Dragon Disclaimer: Dragon Disclaimer: This electronic medical record was generated, in whole or in part, using a voice recognition dictation system. Departure Departure Impression: Primary Impression: Chest pain, rule out acute myocardial infarction Disposition: ADMITTED INPATIENT Admitting Physician: JAYLIN Portillo) Condition: STABLE Referrals: UNKNOWN PCP NAME (PCP) Justicifation of Admission Dx: Justifications for Admission: Justification of Admission Dx: Yes Comments: Chest pain r/o ACS TERRIE GLASGOW DO Sep 27, 2019 23:43
[2019-09-27 23:51] LABS: BILIRUBIN,URINE NEGATIVE (NEG); CLARITY,URINE CLEAR; NITRITE,URINE NEGATIVE (NEG); PROTEIN,URINE NEGATIVE (NEG-TRACE); UROBILINOGEN,URINE 0.2 mg/dL (0.2 mg/dL)
[2019-09-27 23:55] LABS: COLOR,URINE STRAW
[2019-09-27 23:56] LABS: SQUAMOUS EPITHELIAL CELL,UR MOD /LPF
[2019-09-27 23:57] LABS: BACTERIA,URINE MODERATE /HPF (0-FEW)
[2019-09-27 23:58] LABS: WBC,URINE RARE /HPF (0-4)
[2019-09-28] MEDS ORDERED: ASPIRIN 325 MG TABLET PO ONE
[2019-09-28] MEDS ORDERED: IV NORMAL SALINE 1000ML BAG 1,000 ML IV ONE
[2019-09-28 00:45] LABS: BASO % 1 % (0-3); EOS # 0.1 x10^3/uL (0.0-0.7); EOS % 1 % (0-3); HEMATOCRIT 42.3 % (36.0-47.0); HEMOGLOBIN 14.3 g/dL (12.0-15.5); LYMPH % 52 % (24-48); MEAN CORPUSCULAR HEMOGLOBIN 31 pg (25-35); MEAN CORPUSCULAR HGB CONC 34 g/dL (31-37); MEAN CORPUSCULAR VOLUME 92 fL (79-100); MONO # 0.3 x10^3/uL (0.0-1.1); MONO % 5 % (0-9); NEUT # 2.4 x10^3/uL (1.8-7.7); NEUT % 41 % (31-73); PLATELET COUNT 313 x10^3/uL (140-400); RED BLOOD COUNT 4.62 x10^6/uL (3.50-5.40); RED CELL DISTRIBUTION WIDTH 14.2 % (11.5-14.5); WHITE BLOOD COUNT 5.8 x10^3/uL (4.0-11.0)
[2019-09-28 00:51] LABS: GFR 70.7; POTASSIUM 3.8 mmol/L (3.5-5.1)
--- NOTE | 2019-09-28 00:52 | RAD ---
Left lower extremity venous duplex Doppler ultrasound HISTORY: Left leg calf pain FINDINGS: No DVT by grayscale sonography with compressibility, patent color Doppler blood flow and augmentation of blood flow the left common femoral vein, profunda femoral vein, superficial femoral vein and popliteal vein. No DVT evident with patent color Doppler blood flow and augmentation of flow of the posterior tibial and peroneal veins in the calf. IMPRESSION: Negative left leg for DVT. Electronically signed by: True Kaur MD (09/28/2019 12:49 AM) [facility]
[2019-09-28 00:53] LABS: PROTHROMBIN TIME PATIENT 12.5 SEC (11.7-14.0)
[2019-09-28 00:56] LABS: D-DIMER < 0.27 ug/mlFEU (0.00-0.50)
[2019-09-28 00:59] LABS: ALBUMIN 3.8 g/dL (3.4-5.0); ALBUMIN/GLOBULIN RATIO 0.9 (1.0-1.7); MAGNESIUM 2.2 mg/dL (1.8-2.4); TOTAL BILIRUBIN 0.2 mg/dL (0.2-1.0); TOTAL PROTEIN 7.9 g/dL (6.4-8.2)
[2019-09-28 01:10] LABS: CREATINE KINASE 206 U/L (26-192)
[2019-09-28 01:11] LABS: FREE T4 0.95 ng/dL (0.76-1.46); THYROID STIM HORMONE (TSH) 1.181 uIU/mL (0.358-3.74)
--- NOTE | 2019-09-28 02:05 | RAD ---
PA lateral chest x-ray HISTORY: Chest pain. COMPARISON: Chest x-ray January 22, 2019. FINDINGS: Heart size normal. Mediastinal silhouette is normal. No pneumothorax, pulmonary opacities or pleural effusions. Bones are unremarkable. IMPRESSION: No acute process. Electronically signed by: True Kaur MD (09/28/2019 2:02 AM) [facility]
[2019-09-28] MEDS ORDERED: fentaNYL PF VIAL 100 MCG/2 ML VIAL IV PRN (02:30)
[2019-09-28] MEDS ORDERED: ONDANSETRON PF 4 MG/2 ML VIAL. IV PRN (02:30)
[2019-09-28] MEDS ORDERED: DEXTROSE 50% 25 GM / 50ML DISP.SYRIN. IV PRN (02:30)
[2019-09-28 04:55] VITALS: BP 127/82
--- NOTE | 2019-09-28 06:28 | EKG ---
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
[2019-09-28 07:00] VITALS: BP 109/55
[2019-09-28] MEDS ORDERED: HYDR-2761 PO (07:49)
[2019-09-28] MEDS ORDERED: METF500T16 PO (07:49)
[2019-09-28] MEDS ORDERED: LISI-338 PO (07:49)
[2019-09-28] MEDS ORDERED: ATOR10TA PO (07:49)
[2019-09-28] MEDS: INSULIN LISPRO 300 UNITS/3 ML VIAL. SQ SCH ×3 (08:00→17:00)
[2019-09-28 11:00] VITALS: BP 103/58
--- NOTE | 2019-09-28 11:43 | PDOC1 ---
History and Physical Date of Service: DOS: DATE: 09/28/19 TIME: 11:40 Chief Complaint: Problems: (1) Acute coronary syndrome (2) Viral conjunctivitis (3) Acute bacterial conjunctivitis (4) Sciatica (5) Migraine (6) Contusion, hip (7) Bacterial vaginosis (8) Dysfunctional uterine bleeding (9) Menopausal and perimenopausal disorder (10) Urinary tract infection (11) Bronchitis (12) Back pain (13) Chest pain (14) Vomiting (15) Marijuana use (16) Anxiety attack (17) Abdominal pain (18) Chest pain, rule out acute myocardial infarction Chief Complain: Chest pain History of Present Illness: HPI: This is a middle-aged -F[place] female who basically has chest pain She was seen at [facility] for the same thing a week ago She states that she was not diagnosed with any coronary disease at that time but her pain seems to be worsening She rates it 6 out of 10 She has some associated anxiety Is been occurring for several days She took [id number] medicines with that and work I discussed the case with ER physician organ with patient and consult cardiology Past Medical/Surgical History: PMH/PSH: Past Medical History: Anxiety, Diabetes-Type II, Hypertension Additional Past Medical Histor: NEUROPATHY, chronic back pain, SLEEP APNEA Past Surgical History: Tubal ligation Smoking Status: Current Every Day Smoker Alcohol Use: Occasionally Drug Use: Marijuana Allergies: Allergies: Coded Allergies: ibuprofen (Verified Adverse Reaction, Intermediate, Nausea, 11/07/15) naproxen (Verified Adverse Reaction, Intermediate, Nausea, 11/07/15) Family History: Family History: She thinks her mom may have had heart problems states that she definitely had a pacemaker Social History: Social History: She smokes marijuana and cigarettes no drinking or other drugs Current Medications: Current Medications Current Medications Aspirin (Lane Aspirin) 325 mg 1X ONCE PO Last administered on 09/28/19at 00:34; Start 09/28/19 at 00:00; Stop 09/28/19 at 00:01; Status DC Sodium Chloride 1,000 ml @ 1,000 mls/hr 1X ONCE IV Last administered on 09/28/19at 00:37; Start 09/28/19 at 00:00; Stop 09/28/19 at 00:59; Status DC Lorazepam (Ativan Inj) 0.5 mg 1X ONCE IVP Last administered on 09/28/19at 00:34; Start 09/28/19 at 00:30; Stop 09/28/19 at 00:31; Status DC Ondansetron HCl (Zofran) 4 mg PRN Q8HRS PRN IV NAUSEA/VOMITING 1ST CHOICE; Start 09/28/19 at 02:30; Stop 09/29/19 at 02:29 Fentanyl Citrate (Fentanyl 2ml Vial) 25 mcg PRN Q2HRS PRN IV SEVERE PAIN 7-10 Last administered on 09/28/19at 06:10; Start 09/28/19 at 02:30 Insulin Human Lispro (HumaLOG) 0-5 UNITS TIDWMEALS SQ ; Start 09/28/19 at 08:00 Dextrose (Dextrose 50%-Water Syringe) 12.5 gm PRN Q15MIN PRN IV SEE COMMENTS; Start 09/28/19 at 02:30 Active Scripts Active Zofran (Ondansetron Hcl) 4 Mg Tablet 1 Tab PO PRN Q6-8HRS Alprazolam 0.25 Mg Tablet 0.25 Mg PO PRN Q8HRS PRN Cyclobenzaprine Hcl 10 Mg Tablet 1 Tab PO TID PRN Protonix (Pantoprazole Sodium) 40 Mg Tablet.dr 40 Mg PO DAILY Reported Hydrocodone-Apap 5-325 (Hydrocodone Bit/Acetaminophen) 1 Tab Tablet 1 Tab PO PRN BID PRN Metformin Hcl 500 Mg Tablet 500 Mg PO DAILY Lisinopril 5 Mg Tablet 5 Mg PO DAILY Lipitor (Atorvastatin Calcium) 10 Mg Tablet 10 Mg PO HS ROS: Review of Systems Review of System REVIEW OF SYSTEMS: GENERAL: Denies weakness SKIN: No bruising, hair changes or rashes. EYES: No blurred, double or loss of vision. NOSE AND THROAT: No history of nosebleeds, hoarseness or sore throat. HEART: No history of palpitations, chest pain or shortness of breath on exertion. LUNGS: Denies cough, hemoptysis, wheezing or shortness of breath. GASTROINTESTINAL: Denies changes in appetite, nausea, vomiting, diarrhea or constipation. GENITOURINARY: No history of frequency, urgency, hesitancy or nocturia. NEUROLOGIC: Denies history of numbness, tingling, or tremor. PSYCHIATRIC: No history of panic, anxiety or depression. ENDOCRINE: No history of heat or cold intolerance, polyuria or polydipsia. EXTREMITIES: Denies joint pain, pain on walking or stiffness. Physical Exam: Vital Signs: Vital Signs Date Time Temp Pulse Resp B/P (MAP) Pulse Ox O2 Delivery O2 Flow Rate FiO2 09/28/19 11:00 97.5 65 20 103/58 (73) Room Air 97.5 09/28/19 04:48 99 Physcial Exam: GEN: No apparent distress. Alert and oriented HEENT: Normal cephalic, atraumatic, external auditory canals are patent EYES: Extraocular muscles are intact, pupil are equally round and reactive to light and accommodation MUSCULOSKELETAL: Well developed , well nourished, good range of motion ENDOCRINE: No thyromegaly was palpated LYMPHATICS: No cervical chain or axillary nodes were noted HEMATOPOIETIC: No bruising NECK: Supple, no JVD, no thyromegaly was noted LUNGS: Clear to auscultation in all lung manzano without rhonchi or wheezing HEART: RRR, S!, S2 present. Peripheral pulses intact, no obvious murmurs noted ABDOMEN: Soft, nontender. Positive bowel sounds, no organomegaly, normal bowel sounds EXTREMITIES: Without clubbing, cyanosis, or edema. Pedal pulses intact. Negative Homans sign NEUROLOGIC: Normal speech and tone. A&O x 3, moves all extremities, no obvious focal deficits PSYCHIATRIC: Normal affect, normal mood. Stable SKIN: No ulcerations or rashes, good skin turgor, no jaundice VASCULAR: Good capillary refill, neurovascular bundle appears to be intact Labs: Labs: Laboratory Tests Test 09/27/19 23:30 09/28/19 00:31 09/28/19 05:17 09/28/19 05:50 Urine Collection Type Unknown Urine Color Straw Urine Clarity Clear Urine pH 7.0 (<5.0-8.0) Urine Specific [place] <=1.005 (1.000-1.030) Urine Protein Negative mg/dL (NEG-TRACE) Urine Glucose (UA) Negative mg/dL (NEG) Urine Ketones (Stick) Negative mg/dL (NEG) Urine Blood Trace (NEG) Urine Nitrite Negative (NEG) Urine Bilirubin Negative (NEG) Urine Urobilinogen Dipstick 0.2 mg/dL (0.2 mg/dL) Urine Leukocyte Esterase Negative (NEG) Urine RBC 1-2 /HPF (0-2) Urine WBC Rare /HPF (0-4) Urine Squamous Epithelial Cells Mod /LPF Urine Bacteria Moderate /HPF (0-FEW) White Blood Count 5.8 x10^3/uL (4.0-11.0) Red Blood Count 4.62 x10^6/uL (3.50-5.40) Hemoglobin 14.3 g/dL (12.0-15.5) Hematocrit 42.3 % (36.0-47.0) Mean Corpuscular Volume 92 fL (79-100) Mean Corpuscular Hemoglobin 31 pg (25-35) Mean Corpuscular Hemoglobin Concent 34 g/dL (31-37) Red Cell Distribution Width 14.2 % (11.5-14.5) Platelet Count 313 x10^3/uL (140-400) Neutrophils (%) (Auto) 41 % (31-73) Lymphocytes (%) (Auto) 52 % (24-48) Monocytes (%) (Auto) 5 % (0-9) Eosinophils (%) (Auto) 1 % (0-3) Basophils (%) (Auto) 1 % (0-3) Neutrophils # (Auto) 2.4 x10^3/uL (1.8-7.7) Lymphocytes # (Auto) 3.0 x10^3/uL (1.0-4.8) Monocytes # (Auto) 0.3 x10^3/uL (0.0-1.1) Eosinophils # (Auto) 0.1 x10^3/uL (0.0-0.7) Basophils # (Auto) 0.0 x10^3/uL (0.0-0.2) Prothrombin Time 12.5 SEC (11.7-14.0) Prothromb Time International Ratio 1.0 (0.8-1.1) D-Dimer (Jesika) < 0.27 ug/mlFEU Sodium Level 140 mmol/L (136-145) Potassium Level 3.8 mmol/L (3.5-5.1) Chloride Level 105 mmol/L (98-107) Carbon Dioxide Level 29 mmol/L (21-32) Anion Gap 6 (6-14) Blood Urea Nitrogen 7 mg/dL (7-20) Creatinine 1.0 mg/dL (0.6-1.0) Estimated GFR (Cockcroft-Gault) 70.7 BUN/Creatinine Ratio 7 (6-20) Glucose Level 113 mg/dL (70-99) Calcium Level 9.0 mg/dL (8.5-10.1) Magnesium Level 2.2 mg/dL (1.8-2.4) Total Bilirubin 0.2 mg/dL (0.2-1.0) Aspartate Amino Transf (AST/SGOT) 27 U/L (15-37) Alanine Aminotransferase (ALT/SGPT) 34 U/L (14-59) Alkaline Phosphatase 53 U/L (46-116) Creatine Kinase 206 U/L (26-192) Creatine Kinase MB (Mass) < 0.5 ng/mL (0.0-3.6) Creatine Kinase MB Relative Index % (0-4) Troponin I Quantitative < 0.017 ng/mL (0.000-0.055) < 0.017 ng/mL (0.000-0.055) IN-Fpt-U-Type Natriuretic Peptide 5 pg/mL (0-124) Total Protein 7.9 g/dL (6.4-8.2) Albumin 3.8 g/dL (3.4-5.0) Albumin/Globulin Ratio 0.9 (1.0-1.7) Lipase 32 U/L (73-393) Thyroid Stimulating Hormone (TSH) 1.181 uIU/mL (0.358-3.74) Free Thyroxine 0.95 ng/dL (0.76-1.46) Free Triiodothyronine (T3) pg/mL 2.51 pg/mL (2.18-3.98) Glucose (Fingerstick) 102 mg/dL (70-99) Test 09/28/19 08:10 09/28/19 08:15 Glucose (Fingerstick) 93 mg/dL (70-99) Troponin I Quantitative < 0.017 ng/mL (0.000-0.055) Laboratory Tests Test 09/27/19 23:30 09/28/19 00:31 09/28/19 05:17 09/28/19 05:50 Urine Collection Type Unknown Urine Color Straw Urine Clarity Clear Urine pH 7.0 (<5.0-8.0) Urine Specific [place] <=1.005 (1.000-1.030) Urine Protein Negative mg/dL (NEG-TRACE) Urine Glucose (UA) Negative mg/dL (NEG) Urine Ketones (Stick) Negative mg/dL (NEG) Urine Blood Trace (NEG) Urine Nitrite Negative (NEG) Urine Bilirubin Negative (NEG) Urine Urobilinogen Dipstick 0.2 mg/dL (0.2 mg/dL) Urine Leukocyte Esterase Negative (NEG) Urine RBC 1-2 /HPF (0-2) Urine WBC Rare /HPF (0-4) Urine Squamous Epithelial Cells Mod /LPF Urine Bacteria Moderate /HPF (0-FEW) White Blood Count 5.8 x10^3/uL (4.0-11.0) Red Blood Count 4.62 x10^6/uL (3.50-5.40) Hemoglobin 14.3 g/dL (12.0-15.5) Hematocrit 42.3 % (36.0-47.0) Mean Corpuscular Volume 92 fL (79-100) Mean Corpuscular Hemoglobin 31 pg (25-35) Mean Corpuscular Hemoglobin Concent 34 g/dL (31-37) Red Cell Distribution Width 14.2 % (11.5-14.5) Platelet Count 313 x10^3/uL (140-400) Neutrophils (%) (Auto) 41 % (31-73) Lymphocytes (%) (Auto) 52 % (24-48) Monocytes (%) (Auto) 5 % (0-9) Eosinophils (%) (Auto) 1 % (0-3) Basophils (%) (Auto) 1 % (0-3) Neutrophils # (Auto) 2.4 x10^3/uL (1.8-7.7) Lymphocytes # (Auto) 3.0 x10^3/uL (1.0-4.8) Monocytes # (Auto) 0.3 x10^3/uL (0.0-1.1) Eosinophils # (Auto) 0.1 x10^3/uL (0.0-0.7) Basophils # (Auto) 0.0 x10^3/uL (0.0-0.2) Prothrombin Time 12.5 SEC (11.7-14.0) Prothromb Time International Ratio 1.0 (0.8-1.1) D-Dimer (Jesika) < 0.27 ug/mlFEU Sodium Level 140 mmol/L (136-145) Potassium Level 3.8 mmol/L (3.5-5.1) Chloride Level 105 mmol/L (98-107) Carbon Dioxide Level 29 mmol/L (21-32) Anion Gap 6 (6-14) Blood Urea Nitrogen 7 mg/dL (7-20) Creatinine 1.0 mg/dL (0.6-1.0) Estimated GFR (Cockcroft-Gault) 70.7 BUN/Creatinine Ratio 7 (6-20) Glucose Level 113 mg/dL (70-99) Calcium Level 9.0 mg/dL (8.5-10.1) Magnesium Level 2.2 mg/dL (1.8-2.4) Total Bilirubin 0.2 mg/dL (0.2-1.0) Aspartate Amino Transf (AST/SGOT) 27 U/L (15-37) Alanine Aminotransferase (ALT/SGPT) 34 U/L (14-59) Alkaline Phosphatase 53 U/L (46-116) Creatine Kinase 206 U/L (26-192) Creatine Kinase MB (Mass) < 0.5 ng/mL (0.0-3.6) Creatine Kinase MB Relative Index % (0-4) Troponin I Quantitative < 0.017 ng/mL (0.000-0.055) < 0.017 ng/mL (0.000-0.055) RJ-Wby-C-Type Natriuretic Peptide 5 pg/mL (0-124) Total Protein 7.9 g/dL (6.4-8.2) Albumin 3.8 g/dL (3.4-5.0) Albumin/Globulin Ratio 0.9 (1.0-1.7) Lipase 32 U/L (73-393) Thyroid Stimulating Hormone (TSH) 1.181 uIU/mL (0.358-3.74) Free Thyroxine 0.95 ng/dL (0.76-1.46) Free Triiodothyronine (T3) pg/mL 2.51 pg/mL (2.18-3.98) Glucose (Fingerstick) 102 mg/dL (70-99) Test 09/28/19 08:10 09/28/19 08:15 Glucose (Fingerstick) 93 mg/dL (70-99) Troponin I Quantitative < 0.017 ng/mL (0.000-0.055) Assessment/Plan Assessment/Plan Chest pain rule out coronary disease Plan Serial enzymes Serial EKGs Cardiac monitoring Consult cardiology PRN morphine Daily aspirin Trend labs Full code Justicifation of Admission Dx: Justifications for Admission: Justification of Admission Dx: Yes NEFTALY HAYES III DO Sep 28, 2019 11:43
--- NOTE | 2019-09-28 12:19 | NUR ---
SS following for discharge planning. SS reviewed pt chart and discussed with pt RN. Pt is from home and is currently on room air. Cardiology consulted. SS will continue to follow for discharge planning.
--- NOTE | 2019-09-28 12:27 | PDOC2 ---
PABLITO WRIGHT MAINTENANCE HELPER 09/28/19 1227: CARDIAC CONSULT DATE OF CONSULT Date of Consult DATE: 09/28/19 TIME: 12:21 REASON FOR CONSULT Reason for Consult: Chest pain REFERRING PHYSICIAN Referring Physician: Dr. Cortez SOURCE Source: Chart review, Patient HISTORY OF PRESENT ILLNESS HISTORY OF PRESENT ILLNESS This is a 49 yo female who presented secondary to chest pain. Has been present for the last week. Describes as burning, fading pain. No specific or worsening or relieving factors. Loya resolves without intervention. Associated with mild shortness of breath, No dizziness, diaphoresis, palpitations, or nausea /vomiting. Was seen in ED at [facility] for the same pain 3 days prior. Initial lab work reportedly normal. Was sent home and scheduled for outpatient stress testing. PAST MEDICAL HISTORY Cardiovascular: HTN, Hyperlipidemia Pulmonary: COPD, Other (MIYA) CENTRAL NERVOUS SYSTEM: Periperal neuropathy GI: GERD Heme/Onc: Anemia NOS Psych: Anxiety, Depression, Panic Musculoskeletal: Osteoarthritis, Other (DDD) Endocrine: Diabetes PAST SURGICAL HISTORY Past Surgical History: Tubal Ligation FAMILY HISTORY Family History: Heart Disease, Hypertension SOCIAL HISTORY Smoke: No ALCOHOL: none Drugs: None Lives: with Family CURRENT MEDICATIONS CURRENT MEDICATIONS Current Medications Medications (Trade) Dose Ordered Sig/Isis Route PRN Reason Start Time Stop Time Status Last Admin Dose Admin Aspirin (Lane Aspirin) 325 mg 1X ONCE PO 09/28/19 00:00 09/28/19 00:01 DC 09/28/19 00:34 Sodium Chloride 1,000 ml @ 1,000 mls/hr 1X ONCE IV 09/28/19 00:00 09/28/19 00:59 DC 09/28/19 00:37 Lorazepam (Ativan Inj) 0.5 mg 1X ONCE IVP 09/28/19 00:30 09/28/19 00:31 DC 09/28/19 00:34 Fentanyl Citrate (Fentanyl 2ml Vial) 25 mcg PRN Q2HRS PRN IV SEVERE PAIN 7-10 09/28/19 02:30 09/28/19 06:10 ALLERGIES ALLERGIES: Coded Allergies: ibuprofen (Verified Adverse Reaction, Intermediate, Nausea, 11/07/15) naproxen (Verified Adverse Reaction, Intermediate, Nausea, 11/07/15) ROS Review of System 14 point ROS conducted with pertinent positives noted above in HPI PHYSICAL EXAM General: Alert, Oriented X3, Cooperative, No acute distress HEENT: Mucous membr. moist/pink Lungs: Clear to auscultation, Normal air movement, Other (chest tenderness upon palpation ) Heart: Regular rate Abdomen: Soft, No tenderness Extremities: No edema, Normal pulses Skin: No significant lesion Neuro: Normal speech, Sensation intact Psych/Mental Status: Mental status NL, Other MUSCULOSKELETAL: Osteoarthritic changes both hands VITALS/I&O VITALS/I&O: Vital Signs Date Time Temp Pulse Resp B/P (MAP) Pulse Ox O2 Delivery O2 Flow Rate FiO2 09/28/19 11:00 97.5 65 20 103/58 (73) Room Air 97.5 09/28/19 04:48 99 I & O 09/27/19 09/27/19 09/28/19 15:00 23:00 07:00 Output Total 150 ml Balance -150 ml LABS Lab: Laboratory Tests Test 09/27/19 23:30 09/28/19 00:31 09/28/19 05:17 09/28/19 05:50 Urine Collection Type Unknown Urine Color Straw Urine Clarity Clear Urine pH 7.0 (<5.0-8.0) Urine Specific [place] <=1.005 (1.000-1.030) Urine Protein Negative mg/dL (NEG-TRACE) Urine Glucose (UA) Negative mg/dL (NEG) Urine Ketones (Stick) Negative mg/dL (NEG) Urine Blood Trace (NEG) Urine Nitrite Negative (NEG) Urine Bilirubin Negative (NEG) Urine Urobilinogen Dipstick 0.2 mg/dL (0.2 mg/dL) Urine Leukocyte Esterase Negative (NEG) Urine RBC 1-2 /HPF (0-2) Urine WBC Rare /HPF (0-4) Urine Squamous Epithelial Cells Mod /LPF Urine Bacteria Moderate /HPF (0-FEW) White Blood Count 5.8 x10^3/uL (4.0-11.0) Red Blood Count 4.62 x10^6/uL (3.50-5.40) Hemoglobin 14.3 g/dL (12.0-15.5) Hematocrit 42.3 % (36.0-47.0) Mean Corpuscular Volume 92 fL (79-100) Mean Corpuscular Hemoglobin 31 pg (25-35) Mean Corpuscular Hemoglobin Concent 34 g/dL (31-37) Red Cell Distribution Width 14.2 % (11.5-14.5) Platelet Count 313 x10^3/uL (140-400) Neutrophils (%) (Auto) 41 % (31-73) Lymphocytes (%) (Auto) 52 % (24-48) H Monocytes (%) (Auto) 5 % (0-9) Eosinophils (%) (Auto) 1 % (0-3) Basophils (%) (Auto) 1 % (0-3) Neutrophils # (Auto) 2.4 x10^3/uL (1.8-7.7) Lymphocytes # (Auto) 3.0 x10^3/uL (1.0-4.8) Monocytes # (Auto) 0.3 x10^3/uL (0.0-1.1) Eosinophils # (Auto) 0.1 x10^3/uL (0.0-0.7) Basophils # (Auto) 0.0 x10^3/uL (0.0-0.2) Prothrombin Time 12.5 SEC (11.7-14.0) Prothrombin Time INR 1.0 (0.8-1.1) D-Dimer (Jesika) < 0.27 ug/mlFEU Sodium Level 140 mmol/L (136-145) Potassium Level 3.8 mmol/L (3.5-5.1) Chloride Level 105 mmol/L (98-107) Carbon Dioxide Level 29 mmol/L (21-32) Anion Gap 6 (6-14) Blood Urea Nitrogen 7 mg/dL (7-20) Creatinine 1.0 mg/dL (0.6-1.0) Estimated GFR (Cockcroft-Gault) 70.7 BUN/Creatinine Ratio 7 (6-20) Glucose Level 113 mg/dL (70-99) H Calcium Level 9.0 mg/dL (8.5-10.1) Magnesium Level 2.2 mg/dL (1.8-2.4) Total Bilirubin 0.2 mg/dL (0.2-1.0) Aspartate Amino Transferase (AST) 27 U/L (15-37) Alanine Aminotransferase (ALT) 34 U/L (14-59) Alkaline Phosphatase 53 U/L (46-116) Creatine Kinase 206 U/L (26-192) H Creatine Kinase MB (Mass) < 0.5 ng/mL (0.0-3.6) Creatine Kinase MB Relative Index % (0-4) Troponin I Quantitative < 0.017 ng/mL (0.000-0.055) < 0.017 ng/mL (0.000-0.055) YG-Lsu-I-Type Natriuretic Peptide 5 pg/mL (0-124) Total Protein 7.9 g/dL (6.4-8.2) Albumin 3.8 g/dL (3.4-5.0) Albumin/Globulin Ratio 0.9 (1.0-1.7) L Lipase 32 U/L (73-393) L Thyroid Stimulating Hormone (TSH) 1.181 uIU/mL (0.358-3.74) Free Thyroxine 0.95 ng/dL (0.76-1.46) Free Triiodothyronine (T3) pg/mL 2.51 pg/mL (2.18-3.98) Glucose (Fingerstick) 102 mg/dL (70-99) H Test 09/28/19 08:10 09/28/19 08:15 09/28/19 11:44 Glucose (Fingerstick) 93 mg/dL (70-99) 88 mg/dL (70-99) Troponin I Quantitative < 0.017 ng/mL (0.000-0.055) Laboratory Tests 09/28/19 00:31 Laboratory Tests 09/28/19 00:31 ECHOCARDIOGRAM ECHOCARDIOGRAM <Conclusion> Normal LV systolic and diastolic function. EF 65% No significant valvular abnormalities. Normal wall motion. No clear cardiac source of chest pain on this study. DATE: 04/08/15 1040 STRESS TEST STRESS TEST Conclusion 1. No evidence of EKG changes with vasodilator stress 2. Normal myocardial perfusion at stress. 3. Normal EF with stress. 4. Low risk study. DATE: 04/08/15 1054 ASSESSMENT/PLAN ASSESSMENT/PLAN 1. Chest pain, atypical. Trop series negative- AMI ruled out 2. Hypertension; controlled 3. Hyperlipidemia 4. Diabetes, II 5. GERD 6. Anxiety, depression Recommendations ASA Outpatient ischemic evaluation. Patient has outpatient stress test scheduled at [facility] tomorrow morning. Okay to discharge from a CV standpoint KAL NUNO MD 09/29/19 0901: CARDIAC CONSULT ASSESSMENT/PLAN ASSESSMENT/PLAN Patient seen and examined 8/13/20. Agree with TELEPHONE SEX WORKER's assessment and plan. CP with atypical features and most prob musculoskeletal. [place] ruled out. Plsn ischemic evaluation as outpatient. OK for DC from cardiac standpoint. Thank you for your consultation PABLITO WRIGHT APRN Sep 28, 2019 12:27 KAL NUNO MD Sep 29, 2019 09:01
[2019-09-28 15:00] VITALS: BP 102/59
--- NOTE | 2019-09-28 18:33 | NUR ---
Discharge Note: KEKE ADAM Discharge instructions and discharge home medications reviewed with Patient and a copy given. All questions have been answered and understanding verbalized. The following instructions and handouts were given: CP Discontinued lines and drains: Peripheral IV intact. Patient discharged to Home or Self Care with Self via Wheelchair
[2019-09-29] MEDS ORDERED: ASPIRIN ENTERIC COATED 81 MG TABLET.DR. PO SCH (08:00)
== END 2019-09-28 18:35 | disposition home or self-care (01) ==
LOC: ER 23:25 → 2 NORTH 09-28 02:22
PROVIDERS: ADMIT Internal Medicine; ATTEND Internal Medicine
DX: R07.89 Other chest pain (principal); I24.9 Acute ischemic heart disease, unspecified; I10 Essential (primary) hypertension; F41.9 Anxiety disorder, unspecified; E11.9 Type 2 diabetes mellitus without complications; B30.9 Viral conjunctivitis, unspecified; J44.9 Chronic obstructive pulmonary disease, unspecified; G47.33 Obstructive sleep apnea (adult) (pediatric); M54.30 Sciatica, unspecified side; N76.0 Acute vaginitis; N93.8 Other specified abnormal uterine and vaginal bleeding; G43.909 Migraine, unspecified, not intractable, without status migrainosus; N95.9 Unspecified menopausal and perimenopausal disorder; N39.0 Urinary tract infection, site not specified; J40 Bronchitis, not specified as acute or chronic; F32.9 Major depressive disorder, single episode, unspecified; M19.90 Unspecified osteoarthritis, unspecified site; M51.36 Other intervertebral disc degeneration, lumbar region; K21.9 Gastro-esophageal reflux disease without esophagitis; D64.9 Anemia, unspecified; E78.5 Hyperlipidemia, unspecified; F12.90 Cannabis use, unspecified, uncomplicated; G62.9 Polyneuropathy, unspecified; F17.210 Nicotine dependence, cigarettes, uncomplicated; Z98.51 Tubal ligation status; Z79.82 Long term (current) use of aspirin; Z79.4 Long term (current) use of insulin; Z79.899 Other long term (current) drug therapy
CPT/HCPCS: 36415; 71046; 80053; 81001; 82553; 82962; 83690; 83735; 83880; 84439; 84443; 84481; 84484; 85025; 85379; 85610; 87086; 93005; 93971; 96361; 96374; 96375; 99285; G0378; J1815; J2060; J3010; J7030; G0379

== ENCOUNTER 2019-12-08 03:31 | Emergency (ER) | payer MEDICARE, OTHER ==
[~2019-12-08] VITALS: Ht 162.6 cm; Wt 86.4 kg
[~2019-12-08 03:31] MED LIST changes: +ATOR10TA PO; +HYDR-2761 PO; +LISI-338 PO; +METF500T16 PO
[2019-12-08 04:30] LABS: BILIRUBIN,URINE NEGATIVE (NEG); CLARITY,URINE CLEAR; COLOR,URINE YELLOW; NITRITE,URINE NEGATIVE (NEG); PROTEIN,URINE NEGATIVE (NEG-TRACE); UROBILINOGEN,URINE 0.2 mg/dL (0.2 mg/dL)
[2019-12-08 04:36] LABS: BARBITURATES NEG (NEG); BENZODIAZEPINES POS (NEG); CANNABINOIDS NEG (NEG); COCAINE NEG (NEG); METHADONE NEG (NEG); OPIATES NEG (NEG); PHENCYCLIDINE NEG (NEG)
[2019-12-08 04:38] LABS: BACTERIA,URINE MODERATE /HPF (0-FEW); RBC,URINE 0 /HPF (0-2); WBC,URINE OCC /HPF (0-4)
--- NOTE | 2019-12-08 04:42 | ED.ADGEN ---
Past Medical History Past Medical History: Anxiety, Diabetes-Type II, Hypertension Additional Past Medical Histor: NEUROPATHY, chronic back pain, SLEEP APNEA Past Surgical History: Tubal ligation, Other Additional Past Surgical Histo: HEART CATH 12/07/19 Smoking Status: Current Every Day Smoker Alcohol Use: None Drug Use: Marijuana General Adult EDM: Chief Complaint: MULTIPLE COMPLAINTS HPI: HPI: Patient is a 49 year old who presents for multiple complaints including neck pain rating after ears, mid back pain yesterday afternoon. Patient said prior she had had 2 episodes of palpitations. She was seen for a outpatient heart cath at [facility] in [facility] around noon, she states she felt well prior to the cath. She is a cath was in response to an abnormal stress test. No stents were placed. Patient states she left feeling okay if symptoms started later. Also says she feels like she has some congestion in her neck. Denies fevers. Took a Midol complete yesterday afternoon but says she has been have to urinate frequently. She initially presented to [facility] and had lab work and a chest x-ray done and was discharged but refused pain medication, muscle relaxers. Patient states she wants to know what is wrong with her. Review of Systems: Review of Systems: Constitutional: Denies fever or chills. [] Eyes: Denies change in visual acuity. [] HENT: Denies nasal congestion or sore throat. [] Bilateral ear pain Respiratory: Denies cough or shortness of breath. [] Cardiovascular: Denies chest pain or edema. [] Palpitation GI: Denies abdominal pain, nausea, vomiting, bloody stools or diarrhea. [] : Denies dysuria. [] Urinary frequency Musculoskeletal: Bilateral back pain and neck pain Integument: Denies rash. [] Neurologic: Denies headache, focal weakness or sensory changes. [] Endocrine: Denies polyuria or polydipsia. [] Lymphatic: Denies swollen glands. [] Psychiatric: Denies depression or anxiety. [] Allergies: Allergies: Allergies Coded Allergies Type Severity Reaction Last Updated Verified ibuprofen Adverse Reaction Intermediate Nausea 11/07/15 Yes naproxen Adverse Reaction Intermediate Nausea 11/07/15 Yes Physical Exam: PE: Constitutional: Well developed, well nourished, no acute distress, non-toxic appearance. [] HENT: Normocephalic, atraumatic, bilateral external ears normal, oropharynx moist, no oral exudates, nose normal. [] Eyes: PERRLA, EOMI, conjunctiva normal, no discharge. [] Neck: Normal range of motion, no tenderness, supple, no stridor. [] Bilateral neck tenderness Cardiovascular:Heart rate regular rhythm, no murmur [] symmetric pulses Lungs & Thorax: Bilateral breath sounds clear to auscultation [] Abdomen: Bowel sounds normal, soft, no tenderness, no masses, no pulsatile masses. [] Skin: Warm, dry, no erythema, no rash. [] Back: No tenderness, no CVA tenderness. [] Extremities: No tenderness, no cyanosis, no clubbing, ROM intact, no edema. [] Neurologic: Alert and oriented X 3, normal motor function, normal sensory function, no focal deficits noted. [] Psychologic: Affect normal, judgement normal, mood normal. [] Current Patient Data: Labs: Laboratory Tests Test 12/08/19 03:38 12/08/19 03:51 12/08/19 04:34 Urine Collection Type Unknown Urine Color Yellow Urine Clarity Clear Urine pH 6.0 (<5.0-8.0) Urine Specific [place] <=1.005 (1.000-1.030) Urine Protein Negative mg/dL (NEG-TRACE) Urine Glucose (UA) Negative mg/dL (NEG) Urine Ketones (Stick) Negative mg/dL (NEG) Urine Blood Small (NEG) Urine Nitrite Negative (NEG) Urine Bilirubin Negative (NEG) Urine Urobilinogen Dipstick 0.2 mg/dL (0.2 mg/dL) Urine Leukocyte Esterase Negative (NEG) Urine RBC 0 /HPF (0-2) Urine WBC Occ /HPF (0-4) Urine Squamous Epithelial Cells Mod /LPF Urine Bacteria Moderate /HPF (0-FEW) Urine Opiates Screen Neg (NEG) Urine Methadone Screen Neg (NEG) Urine Barbiturates Neg (NEG) Urine Phencyclidine Screen Neg (NEG) Urine Amphetamine/Methamphetamine Neg (NEG) Urine Benzodiazepines Screen Pos (NEG) Urine Cocaine Screen Neg (NEG) Urine Cannabinoids Screen Neg (NEG) Urine Ethyl Alcohol Neg (NEG) POC Urine HCG, Qualitative Hcg negative (Negative) White Blood Count 6.2 x10^3/uL (4.0-11.0) Red Blood Count 4.39 x10^6/uL (3.50-5.40) Hemoglobin 13.7 g/dL (12.0-15.5) Hematocrit 40.2 % (36.0-47.0) Mean Corpuscular Volume 92 fL (79-100) Mean Corpuscular Hemoglobin 31 pg (25-35) Mean Corpuscular Hemoglobin Concent 34 g/dL (31-37) Red Cell Distribution Width 13.7 % (11.5-14.5) Platelet Count 295 x10^3/uL (140-400) Neutrophils (%) (Auto) 21 % (31-73) L Lymphocytes (%) (Auto) 71 % (24-48) H Monocytes (%) (Auto) 5 % (0-9) Eosinophils (%) (Auto) 2 % (0-3) Basophils (%) (Auto) 1 % (0-3) Neutrophils # (Auto) 1.3 x10^3/uL (1.8-7.7) L Lymphocytes # (Auto) 4.4 x10^3/uL (1.0-4.8) Monocytes # (Auto) 0.3 x10^3/uL (0.0-1.1) Eosinophils # (Auto) 0.1 x10^3/uL (0.0-0.7) Basophils # (Auto) 0.0 x10^3/uL (0.0-0.2) Platelet Estimate Pending D-Dimer (Jesika) < 0.27 ug/mlFEU Sodium Level 141 mmol/L (136-145) Potassium Level 3.4 mmol/L (3.5-5.1) L Chloride Level 107 mmol/L (98-107) Carbon Dioxide Level 26 mmol/L (21-32) Anion Gap 8 (6-14) Blood Urea Nitrogen 8 mg/dL (7-20) Creatinine 1.0 mg/dL (0.6-1.0) Estimated GFR (Cockcroft-Gault) 70.7 BUN/Creatinine Ratio 8 (6-20) Glucose Level 155 mg/dL (70-99) H Calcium Level 8.8 mg/dL (8.5-10.1) Total Bilirubin 0.1 mg/dL (0.2-1.0) L Aspartate Amino Transferase (AST) 17 U/L (15-37) Alanine Aminotransferase (ALT) 25 U/L (14-59) Alkaline Phosphatase 47 U/L (46-116) Troponin I Quantitative 0.021 ng/mL (0.000-0.055) Total Protein 7.5 g/dL (6.4-8.2) Albumin 3.7 g/dL (3.4-5.0) Albumin/Globulin Ratio 1.0 (1.0-1.7) Laboratory Tests 12/08/19 04:34 Laboratory Tests 12/08/19 04:34 Vital Signs: Vital Signs Date Time Temp Pulse Resp B/P (MAP) Pulse Ox O2 Delivery O2 Flow Rate FiO2 12/08/19 03:40 98.5 66 16 152/71 (98) 99 Room Air 98.5 EKG: EKG: Normal sinus rhythm, heart rate 70, normal axis, no ST elevation or depression, no T wave inversions, no ectopy, normal intervals [] Heart Score: Risk Factors: Risk Factors: DM, Current or recent (<one month) smoker, HTN, HLP, family history of CAD, obesity. Risk Scores: Score 0 - 3: 2.5% MACE over next 6 weeks - Discharge Home Score 4 - 6: 20.3% MACE over next 6 weeks - Admit for Clinical Observation Score 7 - 10: 72.7% MACE over next 6 weeks - Early Invasive Strategies Radiology/Procedures: Radiology/Procedures: [] Course & Med Decision Making: Course & Med Decision Making Labs unremarkable, discussed with patient that there is no indication to think that she has any arterial dissection or vascular damage after the cath, no blood clots or myocardial injury. Discussed with patient that description of symptoms are more likely due to back spasm after laying on the Angiocath table.. Discussed symptomatic treatment and return precautions, patient agrees to pl an. [] Dragon Disclaimer: Jenny Disclaimer: This electronic medical record was generated, in whole or in part, using a voice recognition dictation system. Departure Departure Impression: Primary Impression: Back pain Additional Impression: Neck pain Disposition: 01 DC HOME SELF CARE/HOMELESS Condition: STABLE Referrals: NO PCP (PCP) Patient Instructions: Muscle Cramps Scripts Cyclobenzaprine Hcl (CYCLOBENZAPRINE HCL) 10 Mg Tablet 1 TAB PO TID for pain for 5 Days, #15 TAB Prov: TONY LAI MD 12/08/19 Problem Qualifiers TONY LAI MD Dec 08, 2019 04:42
[2019-12-08 04:43] LABS: AMPHETAMINE/METHAMPHETAMINE NEG (NEG)
[2019-12-08 04:53] LABS: BASO % 1 % (0-3); EOS # 0.1 x10^3/uL (0.0-0.7); EOS % 2 % (0-3); HEMATOCRIT 40.2 % (36.0-47.0); HEMOGLOBIN 13.7 g/dL (12.0-15.5); LYMPH # 4.4 x10^3/uL (1.0-4.8); LYMPH % 71 % (24-48); MEAN CORPUSCULAR HEMOGLOBIN 31 pg (25-35); MEAN CORPUSCULAR HGB CONC 34 g/dL (31-37); MEAN CORPUSCULAR VOLUME 92 fL (79-100); MONO # 0.3 x10^3/uL (0.0-1.1); MONO % 5 % (0-9); NEUT # 1.3 x10^3/uL (1.8-7.7); NEUT % 21 % (31-73); PLATELET COUNT 295 x10^3/uL (140-400); RED BLOOD COUNT 4.39 x10^6/uL (3.50-5.40); RED CELL DISTRIBUTION WIDTH 13.7 % (11.5-14.5); WHITE BLOOD COUNT 6.2 x10^3/uL (4.0-11.0)
[2019-12-08 04:55] LABS: CALCIUM 8.8 mg/dL (8.5-10.1); GFR 70.7; POTASSIUM 3.4 mmol/L (3.5-5.1)
[2019-12-08 05:01] LABS: ALBUMIN 3.7 g/dL (3.4-5.0); TOTAL BILIRUBIN 0.1 mg/dL (0.2-1.0); TOTAL PROTEIN 7.5 g/dL (6.4-8.2)
[2019-12-08 05:16] VITALS: BP 115/59
[2019-12-08] MEDS ORDERED: CYCL10TA2 PO (05:24)
[2019-12-08 08:32] LABS: % BASOS 1 % (0-3); % EOS 1 % (0-5); % LYMPHS 79 % (24-48); % MONOS 2 % (0-10); % SEGS 17 % (35-66); PLT ESTIMATE ADEQUATE (ADEQUATE)
== END 2019-12-08 05:55 | disposition home or self-care (01) ==
LOC: ER 03:31
DX: M54.5 Low back pain (principal); M54.2 Cervicalgia; R00.2 Palpitations; F41.9 Anxiety disorder, unspecified; E11.40 Type 2 diabetes mellitus with diabetic neuropathy, unspecified; G89.29 Other chronic pain; F17.200 Nicotine dependence, unspecified, uncomplicated; F12.90 Cannabis use, unspecified, uncomplicated; Z98.51 Tubal ligation status; Z98.890 Other specified postprocedural states; Z88.8 Allergy status to other drugs, medicaments and biological substances; Z79.899 Other long term (current) drug therapy
CPT/HCPCS: 36415; 80053; 80307; 81001; 81025; 84484; 85007; 85025; 85379; 87086; 93005; 99285

== ENCOUNTER 2020-07-29 13:11 | Emergency (ER) | payer OTHER ==
[~2020-07-29] VITALS: Ht 162.6 cm; Wt 90.0 kg
[~2020-07-29 13:11] MED LIST changes: -LISI-338 PO; +LISI-517 PO
--- NOTE | 2020-07-29 13:49 | EKG ---
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
--- NOTE | 2020-07-29 13:50 | ED.ADGEN ---
Past Medical History Past Medical History: Anxiety, Diabetes-Type II, High Cholesterol, Hypertension Additional Past Medical Histor: NEUROPATHY, chronic back pain, SLEEP APNEA, COVID 06/2020 Past Surgical History: Tubal ligation, Other Additional Past Surgical Histo: HEART CATH 12/07/19 Smoking Status: Current Every Day Smoker Alcohol Use: None Drug Use: Marijuana General Adult EDM: Chief Complaint: Palpitations HPI: HPI: Patient is a 50 year old female coming in for palpitations. She initially had told the nurse that this started at 11 AM. I states that she had had some symptoms around 8 AM. Patient states at 8 AM she was going to her primary care physician's office to have a checkup after being hospitalized. Patient states she is 3 days post her first Pfizer Covid vaccine and has been feeling fatigued so at 11 she was trying to lay down in her bed to take a nap. Patient also states that after her primary care visit she was instructed to take a preventative baby aspirin and took 1 right after the appointment. Patient states that she has had palpitations to other NSAIDs such as naproxen and ibuprofen. She also has had 11 AM when she is lying down she was feeling short of breath just prior to the palpitations starting. Denies any chest pain or pressure, denies any presyncopal symptoms. Has a history of diabetes and hypertension but states she has been compliant on her medications. Review of Systems: Review of Systems: All other systems within normal limits except for as noted in the HPI Allergies: Allergies: Allergies Coded Allergies Type Severity Reaction Last Updated Verified ibuprofen Adverse Reaction Intermediate Nausea 11/07/15 Yes naproxen Adverse Reaction Intermediate Nausea 11/07/15 Yes Physical Exam: PE: Constitutional: Well developed, well nourished, no acute distress, non-toxic appearance. [] HENT: Normocephalic, atraumatic, bilateral external ears normal, nose normal. [] Eyes: PERRLA, conjunctiva normal, no discharge. [] Neck: No rigidity, supple, no stridor. [] Cardiovascular: Regular rate and rhythm, brisk cap refill [] Lungs & Thorax: Non labored symmetric respirations, no tachypnea or respiratory distress [] Abdomen: Soft, nondistended. Skin: Warm, dry, no erythema, no rash. [] Back: Unremarkable Extremities: No deformities, range of motion grossly intact, no lower extremity edema [] Neurologic: Alert and oriented X 3, no focal deficits noted. [] Psychologic: Affect normal, judgement normal, mood normal. [] Current Patient Data: Labs: Laboratory Tests Test 07/29/20 13:26 07/29/20 13:33 07/29/20 14:00 Urine Collection Type Unknown Urine Color Yellow Urine Clarity Clear Urine pH 6.5 (<5.0-8.0) Urine Specific [place] <=1.005 (1.000-1.030) Urine Protein Negative mg/dL (NEG-TRACE) Urine Glucose (UA) Negative mg/dL (NEG) Urine Ketones (Stick) Negative mg/dL (NEG) Urine Blood Trace (NEG) Urine Nitrite Negative (NEG) Urine Bilirubin Negative (NEG) Urine Urobilinogen Dipstick 0.2 mg/dL (0.2 mg/dL) Urine Leukocyte Esterase Negative (NEG) Urine RBC 0 /HPF (0-2) Urine WBC 0 /HPF (0-4) Urine Squamous Epithelial Cells Few /LPF Urine Bacteria 0 /HPF (0-FEW) Urine Opiates Screen Neg (NEG) Urine Methadone Screen Neg (NEG) Urine Barbiturates Neg (NEG) Urine Phencyclidine Screen Neg (NEG) Urine Amphetamine/Methamphetamine Neg (NEG) Urine Benzodiazepines Screen Neg (NEG) Urine Cocaine Screen Neg (NEG) Urine Cannabinoids Screen Neg (NEG) Urine Ethyl Alcohol Neg (NEG) POC Urine HCG, Qualitative Hcg negative (Negative) White Blood Count 5.6 x10^3/uL (4.0-11.0) Red Blood Count 4.23 x10^6/uL (3.50-5.40) Hemoglobin 13.4 g/dL (12.0-15.5) Hematocrit 38.6 % (36.0-47.0) Mean Corpuscular Volume 91 fL (79-100) Mean Corpuscular Hemoglobin 32 pg (25-35) Mean Corpuscular Hemoglobin Concent 35 g/dL (31-37) Red Cell Distribution Width 13.7 % (11.5-14.5) Platelet Count 290 x10^3/uL (140-400) Neutrophils (%) (Auto) 37 % (31-73) Lymphocytes (%) (Auto) 50 % (24-48) H Monocytes (%) (Auto) 8 % (0-9) Eosinophils (%) (Auto) 4 % (0-3) H Basophils (%) (Auto) 0 % (0-3) Neutrophils # (Auto) 2.1 x10^3/uL (1.8-7.7) Lymphocytes # (Auto) 2.8 x10^3/uL (1.0-4.8) Monocytes # (Auto) 0.5 x10^3/uL (0.0-1.1) Eosinophils # (Auto) 0.2 x10^3/uL (0.0-0.7) Basophils # (Auto) 0.0 x10^3/uL (0.0-0.2) D-Dimer (Jesika) 0.46 ug/mlFEU (0.00-0.50) Sodium Level 143 mmol/L (136-145) Potassium Level 4.3 mmol/L (3.5-5.1) Chloride Level 107 mmol/L (98-107) Carbon Dioxide Level 26 mmol/L (21-32) Anion Gap 10 (6-14) Blood Urea Nitrogen 9 mg/dL (7-20) Creatinine 0.9 mg/dL (0.6-1.0) Estimated GFR (Cockcroft-Gault) 79.6 BUN/Creatinine Ratio 10 (6-20) Glucose Level 118 mg/dL (70-99) H Calcium Level 9.2 mg/dL (8.5-10.1) Phosphorus Level 3.9 mg/dL (2.6-4.7) Magnesium Level 2.0 mg/dL (1.8-2.4) Total Bilirubin 0.2 mg/dL (0.2-1.0) Aspartate Amino Transferase (AST) 24 U/L (15-37) Alanine Aminotransferase (ALT) 26 U/L (14-59) Alkaline Phosphatase 53 U/L (46-116) Creatine Kinase 371 U/L (26-192) H Troponin I Quantitative < 0.017 ng/mL (0.000-0.055) MT-Anl-B-Type Natriuretic Peptide 6 pg/mL (0-124) Total Protein 7.5 g/dL (6.4-8.2) Albumin 4.0 g/dL (3.4-5.0) Albumin/Globulin Ratio 1.1 (1.0-1.7) Laboratory Tests 07/29/20 14:00 Laboratory Tests 07/29/20 14:00 Vital Signs: Vital Signs Date Time Temp Pulse Resp B/P (MAP) Pulse Ox O2 Delivery O2 Flow Rate FiO2 07/29/20 14:46 72 116/66 (83) 99 Room Air 07/29/20 13:18 98.1 16 98.1 EKG: EKG: Sinus rhythm, heart rate 71 bpm, normal axis, no ST elevation or depression, normal intervals, no ectopy. [] Heart Score: C/O Chest Pain: No Risk Factors: Risk Factors: DM, Current or recent (<one month) smoker, HTN, HLP, family histo ry of CAD, obesity. Risk Scores: Score 0 - 3: 2.5% MACE over next 6 weeks - Discharge Home Score 4 - 6: 20.3% MACE over next 6 weeks - Admit for Clinical Observation Score 7 - 10: 72.7% MACE over next 6 weeks - Early Invasive Strategies Radiology/Procedures: Radiology/Procedures: [] Course & Med Decision Making: Course & Med Decision Making Unremarkable, all has had leg cramping with a mildly elevated CK while taking his statin medication. There is no Homans' sign or edema in her lower extremities concerning for DVT as well as negative dimer. Discussed discontinuing aspirin (since she has had similar palpitations other NSAIDs) and statin until following up with her primary care provider. Jenny Disclaimer: Jenny Disclaimer: This electronic medical record was generated, in whole or in part, using a voice recognition dictation system. Departure Departure Impression: Primary Impression: Palpitations with regular cardiac rhythm Disposition: HOME / SELF CARE / HOMELESS Condition: STABLE Referrals: NO PCP (PCP) Patient Instructions: Palpitations Additional Instructions: Discontinue aspirin and statin medication until you able to follow-up with your primary care provider to reevaluate your medication regimen. TONY LAI MD Jul 29, 2020 13:50
[2020-07-29 13:54] LABS: BILIRUBIN,URINE NEGATIVE (NEG); CLARITY,URINE CLEAR; COLOR,URINE YELLOW; NITRITE,URINE NEGATIVE (NEG); PH,URINE 6.5 (<5.0-8.0); PROTEIN,URINE NEGATIVE (NEG-TRACE); UROBILINOGEN,URINE 0.2 mg/dL (0.2 mg/dL)
[2020-07-29 13:56] LABS: BARBITURATES NEG (NEG); BENZODIAZEPINES NEG (NEG); CANNABINOIDS NEG (NEG); COCAINE NEG (NEG); METHADONE NEG (NEG); OPIATES NEG (NEG); PHENCYCLIDINE NEG (NEG)
[2020-07-29 14:00] LABS: AMPHETAMINE/METHAMPHETAMINE NEG (NEG)
[2020-07-29 14:01] LABS: BACTERIA,URINE 0 /HPF (0-FEW); RBC,URINE 0 /HPF (0-2); WBC,URINE 0 /HPF (0-4)
[2020-07-29 14:15] LABS: BASO % 0 % (0-3); EOS # 0.2 x10^3/uL (0.0-0.7); EOS % 4 % (0-3); HEMATOCRIT 38.6 % (36.0-47.0); HEMOGLOBIN 13.4 g/dL (12.0-15.5); LYMPH # 2.8 x10^3/uL (1.0-4.8); LYMPH % 50 % (24-48); MEAN CORPUSCULAR HEMOGLOBIN 32 pg (25-35); MEAN CORPUSCULAR HGB CONC 35 g/dL (31-37); MEAN CORPUSCULAR VOLUME 91 fL (79-100); MONO # 0.5 x10^3/uL (0.0-1.1); MONO % 8 % (0-9); NEUT # 2.1 x10^3/uL (1.8-7.7); NEUT % 37 % (31-73); PLATELET COUNT 290 x10^3/uL (140-400); RED BLOOD COUNT 4.23 x10^6/uL (3.50-5.40); RED CELL DISTRIBUTION WIDTH 13.7 % (11.5-14.5); WHITE BLOOD COUNT 5.6 x10^3/uL (4.0-11.0)
[2020-07-29 14:37] LABS: CALCIUM 9.2 mg/dL (8.5-10.1); CREATININE 0.9 mg/dL (0.6-1.0); GFR 79.6; POTASSIUM 4.3 mmol/L (3.5-5.1)
[2020-07-29 14:41] LABS: ALBUMIN/GLOBULIN RATIO 1.1 (1.0-1.7); PHOSPHORUS 3.9 mg/dL (2.6-4.7); TOTAL BILIRUBIN 0.2 mg/dL (0.2-1.0); TOTAL PROTEIN 7.5 g/dL (6.4-8.2)
[2020-07-29 15:16] VITALS: BP 120/68
== END 2020-07-29 16:04 | disposition home or self-care (01) ==
LOC: ER 13:11
DX: R00.2 Palpitations (principal); E11.40 Type 2 diabetes mellitus with diabetic neuropathy, unspecified; I10 Essential (primary) hypertension; E78.00 Pure hypercholesterolemia, unspecified; G89.29 Other chronic pain; F17.200 Nicotine dependence, unspecified, uncomplicated; Z88.5 Allergy status to narcotic agent; Z88.6 Allergy status to analgesic agent
CPT/HCPCS: 36415; 80053; 80307; 81001; 81025; 82550; 83735; 83880; 84100; 84484; 85025; 85379; 93005; 99285-25

== ENCOUNTER 2020-09-14 23:28 | Observation (INO) | payer OTHER ==
[~2020-09-14] VITALS: Ht 162.6 cm; Wt 94.9 kg
[2020-09-15] VITALS (7 sets, daily range): BP systolic 93–129; BP diastolic 51–69
--- NOTE | 2020-09-15 00:45 | PHYS DOC ---
Past Medical History Past Medical History: Anxiety, Diabetes-Type II, High Cholesterol, Hypertension Additional Past Medical Histor: NEUROPATHY, chronic back pain, SLEEP APNEA, COVID 06/2020 Past Surgical History: , Tubal ligation, Other Additional Past Surgical Histo: HEART CATH 12/07/19 Smoking Status: Current Every Day Smoker Alcohol Use: Occasionally Drug Use: Marijuana General Adult EDM: Chief Complaint: CHEST PAIN HPI: HPI: Patient is a 50 year old female with past medical history HTN, HLD, DM, anxiety who presents with 4-5 days of intermittent substernal chest pressure. No identified aggravating factors. Denies exertional, pleuritic, or postprandial nature. No associated shortness of breath, fevers/chills, cough. No sick contacts. Is fully vaccinated against Covid. She denies any personal history of coronary artery disease, but states that her brother had an MN at age 47. Patient took 1/2 a 7.5 hydrocodone at approximately 6pm. She states shes worried she stops breathing when she falls asleep. Review of Systems: Review of Systems: Constitutional: Denies fever or chills. [] Eyes: Denies change in visual acuity. [] HENT: Denies nasal congestion or sore throat. [] Respiratory: Denies cough or shortness of breath. [] Cardiovascular: + chest pain. No edema. [] GI: Denies abdominal pain, nausea, vomiting, bloody stools or diarrhea. [] : Denies dysuria. [] Musculoskeletal: Denies back pain or joint pain. [] Integument: Denies rash. [] Neurologic: Denies headache, focal weakness or sensory changes. [] Endocrine: Denies polyuria or polydipsia. [] Lymphatic: Denies swollen glands. [] Psychiatric: Denies depression or anxiety. [] Heart Score: C/O Chest Pain: Yes HEART Score for Chest Pain: HEART Score for Chest Pain Response (Comments) Value History Moderately Suspicious 1 ECG Normal 0 Age >45 - < 65 1 Risk Factors >3 Risk Factors or Hx CAD 2 Total 4 Risk Factors: Risk Factors: DM, Current or recent (<one month) smoker, HTN, HLP, family history of CAD, obesity. Risk Scores: Score 0 - 3: 2.5% MACE over next 6 weeks - Discharge Home Score 4 - 6: 20.3% MACE over next 6 weeks - Admit for Clinical Observation Score 7 - 10: 72.7% MACE over next 6 weeks - Early Invasive Strategies Family History: Family History: Early CAD hx for brother at age 47 Allergies: Allergies: Allergies Coded Allergies Type Severity Reaction Last Updated Verified ibuprofen Adverse Reaction Intermediate Nausea 11/07/15 Yes naproxen Adverse Reaction Intermediate Nausea 11/07/15 Yes Physical Exam: PE: Constitutional: Well developed, well nourished, no acute distress, non-toxic appearance. [] HENT: Normocephalic, atraumatic, bilateral external ears normal, oropharynx moist, no oral exudates, nose normal. [] Eyes: PERRLA, EOMI, conjunctiva normal, no discharge. [] Neck: Normal range of motion, no tenderness, supple, no stridor. [] Cardiovascular:Heart rate regular rhythm, no murmur [] Lungs & Thorax: Bilateral breath sounds clear to auscultation [] Abdomen: Bowel sounds normal, soft, no tenderness, no masses, no pulsatile masses. [] Skin: Warm, dry, no erythema, no rash. [] Back: No tenderness, no CVA tenderness. [] Extremities: No tenderness, no cyanosis, no clubbing, ROM intact, no edema. [] Neurologic: Alert and oriented X 3, normal motor function, normal sensory function, no focal deficits noted. [] Psychologic: Affect normal, judgement normal, mood normal. [] Current Patient Data: Vital Signs: Vital Signs Date Time Temp Pulse Resp B/P (MAP) Pulse Ox O2 Delivery O2 Flow Rate FiO2 09/14/20 23:30 98.1 72 18 168/75 (85) 100 Room Air 98.1 EKG: EKG: Sinus rhythm. Rate 72. Normal axis. Normal intervals. Q waves, T wave inv ersion, ST elevation, ST depression. Normal EKG. No acute ischemic changes [] Radiology/Procedures: Radiology/Procedures: CXR [] Impression: [facility] [address] [place] [address] IMAGING REPORT Signed PATIENT: KEKE ADAMCCOUNT: [id number] : 1970 LOCATION: ER AGE: 50 SEX: F EXAM STATUS: REG ER ORD. PHYSICIAN: JAMIL CUEVAS MD REASON: chest pain PROCEDURE: CHEST AP ONLY EXAM: CHEST ONE VIEW. HISTORY: Chest pain. COMPARISON: 09/28/2019. FINDINGS: A frontal view of the chest is obtained. There are no confluent infiltrates. There is no pneumothorax or pleural effusion. The heart is not enlarged. IMPRESSION: 1. No confluent infiltrates. Electronically signed by: Charbel Sullivan MD (09/15/2020 1:58 AM) [facility] DICTATED and SIGNED BY: JAMIL SULLIVAN MD DATE: 09/15/20 [id number] Course & Med Decision Making: Course & Med Decision Making Pertinent Labs and Imaging studies reviewed. (See chart for details) Patient is a 50-year-old female with past medical history HTN, HLD, DM, and e isreal family history of CAD who presents with 4-5 days of intermittent chest pressure. On arrival is afebrile, hemodynamically stable. Well-appearing on examination. EKG is without acute ischemic changes. We will check a troponin, CMP, lipase, and CBC for initial work-up. We will also check a chest x-ray for any signs of pneumothorax, pneumonia, mediastinal widening, although this is favored to be less likely. HEART SCORE = 4 prior to troponin. Making her higher risk. So may ultimately pursue admission for chest pain work-up. [id number] Fortunately CXR, initial trop, and labs are reassuring. WIll order serial troponins and admit for further managment given chest pressure and multiple risk factors. [id number] Jenny Disclaimer: Jenny Disclaimer: This electronic medical record was generated, in whole or in part, using a voice recognition dictation system. Departure Departure Impression: Primary Impression: Chest pain Disposition: ADMITTED INPATIENT Admitting Physician: JAYLIN Mckeon) Condition: STABLE Referrals: NI VALENZUELA DO (PCP) JAMIL CUEVAS MD Sep 15, 2020 00:45
[2020-09-15 01:03] LABS: BASO % 1 % (0-3); EOS % 1 % (0-3); HEMATOCRIT 40.6 % (36.0-47.0); HEMOGLOBIN 13.9 g/dL (12.0-15.5); LYMPH # 3.1 x10^3/uL (1.0-4.8); LYMPH % 36 % (24-48); MEAN CORPUSCULAR HEMOGLOBIN 31 pg (25-35); MEAN CORPUSCULAR HGB CONC 34 g/dL (31-37); MEAN CORPUSCULAR VOLUME 91 fL (79-100); MONO # 0.5 x10^3/uL (0.0-1.1); MONO % 6 % (0-9); NEUT % 57 % (31-73); PLATELET COUNT 322 x10^3/uL (140-400); RED BLOOD COUNT 4.45 x10^6/uL (3.50-5.40); RED CELL DISTRIBUTION WIDTH 14.4 % (11.5-14.5); WHITE BLOOD COUNT 8.7 x10^3/uL (4.0-11.0)
[2020-09-15 01:10] LABS: CALCIUM 9.5 mg/dL (8.5-10.1); CREATININE 1.1 mg/dL (0.6-1.0); GFR 63.1; POTASSIUM 3.7 mmol/L (3.5-5.1)
[2020-09-15 01:16] LABS: ALBUMIN 4.3 g/dL (3.4-5.0); ALBUMIN/GLOBULIN RATIO 1.2 (1.0-1.7); TOTAL BILIRUBIN 0.3 mg/dL (0.2-1.0); TOTAL PROTEIN 7.9 g/dL (6.4-8.2)
--- NOTE | 2020-09-15 02:01 | RAD ---
EXAM: CHEST ONE VIEW. HISTORY: Chest pain. COMPARISON: 09/28/2019. FINDINGS: A frontal view of the chest is obtained. There are no confluent infiltrates. There is no pneumothorax or pleural effusion. The heart is not en larged. IMPRESSION: 1. No confluent infiltrates. Electronically signed by: Charbel Sullivan MD (09/15/2020 1:58 AM) [facility]
--- NOTE | 2020-09-15 02:12 | EKG ---
[facility] [address] [place] [address] Test Date: 2020-09-14 Test Time: 23:34:57 Pat Name: KEKE ADAM Department: Room: Gender: F Line Ordering Clinician: : 1970 Requested By: JAMIL CUEVAS Order Number: [id number] Reading MD: Measurements Intervals [place] Rate: 72 P: 33 [place]: 158 QRS: 18 QRSD: 76 T: 26 QT: 404 QTc: 444 Interpretive Statements SINUS RHYTHM NORMAL ECG RI6.02 No previous ECG available for comparison
[2020-09-15] MEDS ORDERED: HYDR-2765 PO (05:30)
[2020-09-15] MEDS ORDERED: ALPRAZolam 0.25 MG TABLET PO PRN (06:15)
[2020-09-15] MEDS ORDERED: HYDROcodone/APAP 7.5/325MG 1 TAB TABLET PO PRN (06:15)
[2020-09-15] MEDS: metFORMIN 500 MG TABLET PO SCH (09:00)
[2020-09-15] MEDS: LISINOPRIL 5 MG TABLET. PO SCH (09:35)
[2020-09-15] MEDS ORDERED: FAMOTIDINE 20 MG TABLET. PO ONE (09:45)
[2020-09-15] MEDS ORDERED: LIDO:MAALOX 1:1 20 ML SINGLE DOSE. PO ONE (09:45)
[2020-09-15] MEDS: MORPHINE SULFATE 4 MG/ML INJ. IV PRN ×2 (10:37→18:35)
--- NOTE | 2020-09-15 11:36 | RAD ---
EXAM: Right humerus, 2 views. HISTORY: Pain. COMPARISON: None. FINDINGS: 2 views of the right humerus are obtained. There is no fracture, dislocation or subluxation . There is no periosteal reaction or lytic or sclerotic osseous lesion. There is no radiodense foreig n body. IMPRESSION: No acute osseous finding. Electronically signed by: Dionna Wright MD (09/15/2020 11:33 AM) [id number]
--- NOTE | 2020-09-15 12:26 | PDOC2 ---
CONSULT Date of Consult Date of Consult DATE: 09/15/20 TIME: 12:21 Reason for Consult Reason for Consult: Chest pain Referring Physician Referring Physician: Dr. Vargas Identification/Chief Complaint Chief Complaint Chest pain Source Source: Chart review, Patient History of Present Illness Reason for Visit: 50-year-old female without any previous history of coronary artery disease presented complaining of intermittent episodes of retrosternal chest pain that she described as sharp in nature, 5/10 severity slightly worse with deep breath. She denied any orthopnea/PND, palpitations or syncope. She is a smoker and has family history of coronary artery disease. Past Medical History Cardiovascular: HTN, Hyperlipidemia Pulmonary: COPD, Other CENTRAL NERVOUS SYSTEM: Periperal neuropathy GI: GERD Heme/Onc: Anemia NOS Hepatobiliary: No pertinent hx Psych: Anxiety, Depression, Panic Musculoskeletal: Osteoarthritis, Other Rheumatologic: No pertinent hx Infectious disease: No pertinent hx Renal/: Urinary Incontinence, Other Endocrine: Diabetes Past Surgical History Past Surgical History: Tubal Ligation Family History Family History: Heart Disease, Hypertension Social History ALCOHOL: none Drugs: None Lives: with Family Domestic Violence: Neg Current Problem List Problem List Problems Medical Problems: (1) Chest pain Status: Acute Current Medications Current Medications Current Medications Alprazolam (Xanax) 0.25 mg PRN Q8HRS PRN PO ANXIETY / AGITATION; Start 09/15/20 at 06:15 Atorvastatin Calcium (Lipitor) 20 mg HS PO ; Start 09/15/20 at 21:00 Acetaminophen/ Hydrocodone Bitart (Lortab 7.5/325) 1 tab PRN Q6HRS PRN PO MODERATE PAIN 4-6; Start 09/15/20 at 06:15 Lisinopril (Prinivil) 5 mg DAILY PO Last administered on 09/15/20at 09:35; Start 09/15/20 at 09:00 Metformin HCl (Glucophage) 500 mg DAILY PO ; Start 09/15/20 at 09:00 Multi-Ingredient Mouthwash/Gargle (Gi Cocktail) 20 ml 1X ONCE PO Last administered on 09/15/20at 10:37; Start 09/15/20 at 09:45; Stop 09/15/20 at 09:50; Status DC Famotidine (Pepcid) 20 mg 1X ONCE PO Last administered on 09/15/20at 10:36; Start 09/15/20 at 09:45; Stop 09/15/20 at 09:50; Status DC Morphine Sulfate (Morphine Sulfate) 4 mg PRN Q2HR PRN IV MODERATE TO SEVERE PAIN Last administered on 09/15/20at 10:37; Start 09/15/20 at 10:00 Active Scripts Active Cyclobenzaprine Hcl 10 Mg Tablet 1 Tab PO TID 5 Days Zofran (Ondansetron Hcl) 4 Mg Tablet 1 Tab PO PRN Q6-8HRS Alprazolam 0.25 Mg Tablet 0.25 Mg PO PRN Q8HRS PRN Cyclobenzaprine Hcl 10 Mg Tablet 1 Tab PO TID PRN Protonix (Pantoprazole Sodium) 40 Mg Tablet.dr 40 Mg PO DAILY Reported Hydrocodone-Apap 7.5-325 (Hydrocodone Bit/Acetaminophen) 1 Tab Tablet 1 Tab PO PRN Q6HRS PRN Metformin Hcl 500 Mg Tablet 500 Mg PO DAILY Lisinopril 5 Mg Tablet 5 Mg PO DAILY Lipitor (Atorvastatin Calcium) 10 Mg Tablet 20 Mg PO HS Allergies Allergies: Coded Allergies: ibuprofen (Verified Adverse Reaction, Intermediate, Nausea, 11/07/15) naproxen (Verified Adverse Reaction, Intermediate, Nausea, 11/07/15) ROS PSYCHOLOGICAL ROS: No: Hallucinations Eyes: No Loss of vision HEENT: No: Epistaxis Respiratory: No: Hemoptysis Cardiovascular: yes Chest Pain Gastrointestinal: No Vomiting Genitourinary: No Hematuria Neurological: No Seizures Skin: No Rash Physical Exam General: Alert, Oriented X3 HEENT: Atraumatic Lungs: Clear to auscultation Heart: Regular rate Abdomen: Soft, No tenderness Extremities: No edema Neuro: Normal speech Psych/Mental Status: Mood NL Vitals VITALS Vital Signs Date Time Temp Pulse Resp B/P (MAP) Pulse Ox O2 Delivery O2 Flow Rate FiO2 09/15/20 10:37 Room Air 09/15/20 09:35 67 121/60 09/15/20 07:00 97.7 18 100 97.7 Labs Labs Laboratory Tests Test 09/14/20 23:39 09/15/20 03:49 09/15/20 06:20 09/15/20 09:34 White Blood Count 8.7 x10^3/uL (4.0-11.0) Red Blood Count 4.45 x10^6/uL (3.50-5.40) Hemoglobin 13.9 g/dL (12.0-15.5) Hematocrit 40.6 % (36.0-47.0) Mean Corpuscular Volume 91 fL (79-100) Mean Corpuscular Hemoglobin 31 pg (25-35) Mean Corpuscular Hemoglobin Concent 34 g/dL (31-37) Red Cell Distribution Width 14.4 % (11.5-14.5) Platelet Count 322 x10^3/uL (140-400) Neutrophils (%) (Auto) 57 % (31-73) Lymphocytes (%) (Auto) 36 % (24-48) Monocytes (%) (Auto) 6 % (0-9) Eosinophils (%) (Auto) 1 % (0-3) Basophils (%) (Auto) 1 % (0-3) Neutrophils # (Auto) 5.0 x10^3/uL (1.8-7.7) Lymphocytes # (Auto) 3.1 x10^3/uL (1.0-4.8) Monocytes # (Auto) 0.5 x10^3/uL (0.0-1.1) Eosinophils # (Auto) 0.0 x10^3/uL (0.0-0.7) Basophils # (Auto) 0.0 x10^3/uL (0.0-0.2) Sodium Level 139 mmol/L (136-145) Potassium Level 3.7 mmol/L (3.5-5.1) Chloride Level 100 mmol/L (98-107) Carbon Dioxide Level 26 mmol/L (21-32) Anion Gap 13 (6-14) Blood Urea Nitrogen 8 mg/dL (7-20) Creatinine 1.1 mg/dL (0.6-1.0) Estimated GFR (Cockcroft-Gault) 63.1 BUN/Creatinine Ratio 7 (6-20) Glucose Level 130 mg/dL (70-99) Calcium Level 9.5 mg/dL (8.5-10.1) Total Bilirubin 0.3 mg/dL (0.2-1.0) Aspartate Amino Transf (AST/SGOT) 27 U/L (15-37) Alanine Aminotransferase (ALT/SGPT) 40 U/L (14-59) Alkaline Phosphatase 63 U/L (46-116) Troponin I Quantitative < 0.017 ng/mL (0.000-0.055) < 0.017 ng/mL (0.000-0.055) Total Protein 7.9 g/dL (6.4-8.2) Albumin 4.3 g/dL (3.4-5.0) Albumin/Globulin Ratio 1.2 (1.0-1.7) Lipase 31 U/L (73-393) Glucose (Fingerstick) 111 mg/dL (70-99) 115 mg/dL (70-99) Test 09/15/20 09:40 09/15/20 12:03 Troponin I Quantitative < 0.017 ng/mL (0.000-0.055) Glucose (Fingerstick) 140 mg/dL (70-99) Laboratory Tests Test 09/14/20 23:39 09/15/20 03:49 09/15/20 06:20 09/15/20 09:34 White Blood Count 8.7 x10^3/uL (4.0-11.0) Red Blood Count 4.45 x10^6/uL (3.50-5.40) Hemoglobin 13.9 g/dL (12.0-15.5) Hematocrit 40.6 % (36.0-47.0) Mean Corpuscular Volume 91 fL (79-100) Mean Corpuscular Hemoglobin 31 pg (25-35) Mean Corpuscular Hemoglobin Concent 34 g/dL (31-37) Red Cell Distribution Width 14.4 % (11.5-14.5) Platelet Count 322 x10^3/uL (140-400) Neutrophils (%) (Auto) 57 % (31-73) Lymphocytes (%) (Auto) 36 % (24-48) Monocytes (%) (Auto) 6 % (0-9) Eosinophils (%) (Auto) 1 % (0-3) Basophils (%) (Auto) 1 % (0-3) Neutrophils # (Auto) 5.0 x10^3/uL (1.8-7.7) Lymphocytes # (Auto) 3.1 x10^3/uL (1.0-4.8) Monocytes # (Auto) 0.5 x10^3/uL (0.0-1.1) Eosinophils # (Auto) 0.0 x10^3/uL (0.0-0.7) Basophils # (Auto) 0.0 x10^3/uL (0.0-0.2) Sodium Level 139 mmol/L (136-145) Potassium Level 3.7 mmol/L (3.5-5.1) Chloride Level 100 mmol/L (98-107) Carbon Dioxide Level 26 mmol/L (21-32) Anion Gap 13 (6-14) Blood Urea Nitrogen 8 mg/dL (7-20) Creatinine 1.1 mg/dL (0.6-1.0) Estimated GFR (Cockcroft-Gault) 63.1 BUN/Creatinine Ratio 7 (6-20) Glucose Level 130 mg/dL (70-99) Calcium Level 9.5 mg/dL (8.5-10.1) Total Bilirubin 0.3 mg/dL (0.2-1.0) Aspartate Amino Transf (AST/SGOT) 27 U/L (15-37) Alanine Aminotransferase (ALT/SGPT) 40 U/L (14-59) Alkaline Phosphatase 63 U/L (46-116) Troponin I Quantitative < 0.017 ng/mL (0.000-0.055) < 0.017 ng/mL (0.000-0.055) Total Protein 7.9 g/dL (6.4-8.2) Albumin 4.3 g/dL (3.4-5.0) Albumin/Globulin Ratio 1.2 (1.0-1.7) Lipase 31 U/L (73-393) Glucose (Fingerstick) 111 mg/dL (70-99) 115 mg/dL (70-99) Test 09/15/20 09:40 09/15/20 12:03 Troponin I Quantitative < 0.017 ng/mL (0.000-0.055) Glucose (Fingerstick) 140 mg/dL (70-99) Assessment/Plan Assessment/Plan 1. Chest pain with atypical features: Myocardial infarction has been ruled out based on EKG and cardiac enzymes. Plan for 2D echo to assess LV function and Lexiscan nuclear stress test to rule out ischemia as an outpatient. 2. Hypertension: Controlled 3. Hyperlipidemia: Continue statins 4. DM2: Treat per IM Thank you for your consultation KAL NUNO MD Sep 15, 2020 12:26
--- NOTE | 2020-09-15 13:50 | PDOC1 ---
History and Physical Date of Admission Date of Admission DATE: 09/15/20 TIME: 13:50 History of Present Illness History of Present Illness MS. Martinez is a 50 year old female with past medical history HTN, HLD, DM, anxiety who presents with 4-5 days of intermittent substernal chest pressure. her pain is also in her right neck, to her right elbow, worse with movemetn, she has arm weakness that is new. she is fully vaccinated against Covid. . Patient took 1/2 a 7.5 hydrocodone at approximately 6pm. she takes this for chronic lower back pain,. she has MIYA, stopped using last week as she saw on the news that [employer] CPAP is on a recall due to loose parts Past Medical History Cardiovascular: HTN, Hyperlipidemia Pulmonary: COPD, Other CENTRAL NERVOUS SYSTEM: Periperal neuropathy GI: GERD Heme/Onc: Anemia NOS Hepatobiliary: No pertinent hx Psych: Anxiety, Depression, Panic Musculoskeletal: Osteoarthritis, Other Rheumatologic: No pertinent hx Infectious disease: No pertinent hx Renal/: Urinary Incontinence, Other Endocrine: Diabetes Past Surgical History Past Surgical History: Tubal Ligation Family History Family History: Heart Disease, Hypertension Social History ALCOHOL: none Drugs: None Current Problem List Problem List Problems Medical Problems: (1) Chest pain Status: Acute Current Medications Current Medications Current Medications Alprazolam (Xanax) 0.25 mg PRN Q8HRS PRN PO ANXIETY / AGITATION; Start 09/15/20 at 06:15 Atorvastatin Calcium (Lipitor) 20 mg HS PO ; Start 09/15/20 at 21:00 Acetaminophen/ Hydrocodone Bitart (Lortab 7.5/325) 1 tab PRN Q6HRS PRN PO MODERATE PAIN 4-6; Start 09/15/20 at 06:15 Lisinopril (Prinivil) 5 mg DAILY PO Last administered on 09/15/20at 09:35; Start 09/15/20 at 09:00 Metformin HCl (Glucophage) 500 mg DAILY PO ; Start 09/15/20 at 09:00 Multi-Ingredient Mouthwash/Gargle (Gi Cocktail) 20 ml 1X ONCE PO Last administered on 09/15/20at 10:37; Start 09/15/20 at 09:45; Stop 09/15/20 at 09:50; Status DC Famotidine (Pepcid) 20 mg 1X ONCE PO Last administered on 09/15/20at 10:36; Start 09/15/20 at 09:45; Stop 09/15/20 at 09:50; Status DC Morphine Sulfate (Morphine Sulfate) 4 mg PRN Q2HR PRN IV MODERATE TO SEVERE JOYA N Last administered on 09/15/20at 10:37; Start 09/15/20 at 10:00 Dexamethasone Sodium Phosphate (Decadron) 4 mg 1X ONCE IVP ; Start 09/15/20 at 14:15; Stop 09/15/20 at 14:16 Acetaminophen (Tylenol) 650 mg 1X ONCE PO ; Start 09/15/20 at 14:30; Stop 09/15/20 at 14:31 Active Scripts Active Cyclobenzaprine Hcl 10 Mg Tablet 1 Tab PO TID 5 Days Zofran (Ondansetron Hcl) 4 Mg Tablet 1 Tab PO PRN Q6-8HRS Alprazolam 0.25 Mg Tablet 0.25 Mg PO PRN Q8HRS PRN Cyclobenzaprine Hcl 10 Mg Tablet 1 Tab PO TID PRN Protonix (Pantoprazole Sodium) 40 Mg Tablet.dr 40 Mg PO DAILY Reported Hydrocodone-Apap 7.5-325 (Hydrocodone Bit/Acetaminophen) 1 Tab Tablet 1 Tab PO PRN Q6HRS PRN Metformin Hcl 500 Mg Tablet 500 Mg PO DAILY Lisinopril 5 Mg Tablet 5 Mg PO DAILY Lipitor (Atorvastatin Calcium) 10 Mg Tablet 20 Mg PO HS Allergies Allergies: Coded Allergies: ibuprofen (Verified Adverse Reaction, Intermediate, Nausea, 11/07/15) naproxen (Verified Adverse Reaction, Intermediate, Nausea, 11/07/15) ROS General: No: Chills, Night Sweats, Fatigue, Malaise, Appetite, Other PSYCHOLOGICAL ROS: No: Anxiety, Behavioral Disorder, Concentration difficultie, Decreased libido, Depression, Disorientation, Hallucinations, Hostility, Irritablity, Memory difficulties, Mood Swings, Obsessive thoughts, Physical abuse, Sexual abuse, Sleep disturbances, Suicidal ideation, Other Eyes: No Blurry vision, No Decreased vision, No Double vision, No Dry eyes, No Excessive tearing, No Eye Pain, No Itchy Eyes, No Loss of vision, No Photophobia, No Scotomata, No Uses contacts, No Uses glasses, No Other HEENT: No: Heacaches, Visual Changes, Hearing change, Nasal congestion, Nasal discharge, Oral lesions, Sinus pain, Sore Throat, Epistaxis, Sneezing, Snoring, Tinnitus, Vertigo, Vocal changes, Other Respiratory: No: Cough, Hemoptysis, Orthopnea, Pleuritic Pain, Shortness of breath, SOB with excertion, Sputum Changes, Stridor, Tachypnea, Wheezing, Other Cardiovascular: No Chest Pain, No Palpitations, No Orthopnea, No Paroxysmal Noc. Dyspnea, No Edema, No Lt Headedness, No Other Gastrointestinal: No Nausea, No Vomiting, No Abdominal Pain, No Diarrhea, No Constipation, No Melena, No Hematochezia, No Other Genitourinary: No Dysuria, No Frequency, No Incontinence, No Hematuria, No Retention, No Discharge, No Urgency, No Pain, No Flank Pain, No Other, No , No , No , No , No , No , No Musculoskeletal: Yes Joint Swelling, Yes Muscular Weakness, Yes Pain In: (arm); No Gait Disturbance, No Joint Pain, No Muscle Pain, No Swelling In:, No Other Neurological: No Behavorial Changes, No Bowel/Bladder ControlChng, No Confusion, No Dizziness, No Gait Disturbance, No Headaches, No Impaired Coord/balance, No Memory Loss, No Numbness/Tingling, No Seizures, No Speech Problems, No Tremors, No Visual Changes, No Weakness, No Other Skin: Yes Dry Skin; No Eczema, No Hair Changes, No Lumps, No Mole Changes, No Mottling, No Nail Changes, No Pruritus, No Rash, No Skin Lesion Changes, No Other, No Acne Physical Exam General: Alert, Cooperative, mild distress (arm pain) HEENT: Atraumatic, PERRLA Lungs: Clear to auscultation, Normal air movement Heart: S1S2, no murmurs Extremities: No clubbing, Normal pulses, Other (right arm weak, poor ROM, painful ) Skin: No rashes, No significant lesion Neuro: Normal speech, Sensation intact, Cranial nerves 3-12 NL Psych/Mental Status: Other (odd affect, very quiet talking) Vitals Vitals Vital Signs Date Time Temp Pulse Resp B/P (MAP) Pulse Ox O2 Delivery O2 Flow Rate FiO2 09/15/20 12:00 98.3 65 18 129/69 (89) 95 98.3 09/15/20 10:37 Room Air Labs Labs Laboratory Tests Test 09/14/20 23:39 09/15/20 03:49 09/15/20 06:20 09/15/20 09:34 White Blood Count 8.7 x10^3/uL (4.0-11.0) Red Blood Count 4.45 x10^6/uL (3.50-5.40) Hemoglobin 13.9 g/dL (12.0-15.5) Hematocrit 40.6 % (36.0-47.0) Mean Corpuscular Volume 91 fL (79-100) Mean Corpuscular Hemoglobin 31 pg (25-35) Mean Corpuscular Hemoglobin Concent 34 g/dL (31-37) Red Cell Distribution Width 14.4 % (11.5-14.5) Platelet Count 322 x10^3/uL (140-400) Neutrophils (%) (Auto) 57 % (31-73) Lymphocytes (%) (Auto) 36 % (24-48) Monocytes (%) (Auto) 6 % (0-9) Eosinophils (%) (Auto) 1 % (0-3) Basophils (%) (Auto) 1 % (0-3) Neutrophils # (Auto) 5.0 x10^3/uL (1.8-7.7) Lymphocytes # (Auto) 3.1 x10^3/uL (1.0-4.8) Monocytes # (Auto) 0.5 x10^3/uL (0.0-1.1) Eosinophils # (Auto) 0.0 x10^3/uL (0.0-0.7) Basophils # (Auto) 0.0 x10^3/uL (0.0-0.2) Sodium Level 139 mmol/L (136-145) Potassium Level 3.7 mmol/L (3.5-5.1) Chloride Level 100 mmol/L (98-107) Carbon Dioxide Level 26 mmol/L (21-32) Anion Gap 13 (6-14) Blood Urea Nitrogen 8 mg/dL (7-20) Creatinine 1.1 mg/dL (0.6-1.0) Estimated GFR (Cockcroft-Gault) 63.1 BUN/Creatinine Ratio 7 (6-20) Glucose Level 130 mg/dL (70-99) Calcium Level 9.5 mg/dL (8.5-10.1) Total Bilirubin 0.3 mg/dL (0.2-1.0) Aspartate Amino Transf (AST/SGOT) 27 U/L (15-37) Alanine Aminotransferase (ALT/SGPT) 40 U/L (14-59) Alkaline Phosphatase 63 U/L (46-116) Troponin I Quantitative < 0.017 ng/mL (0.000-0.055) < 0.017 ng/mL (0.000-0.055) Total Protein 7.9 g/dL (6.4-8.2) Albumin 4.3 g/dL (3.4-5.0) Albumin/Globulin Ratio 1.2 (1.0-1.7) Lipase 31 U/L (73-393) Glucose (Fingerstick) 111 mg/dL (70-99) 115 mg/dL (70-99) Test 09/15/20 09:40 09/15/20 12:03 Troponin I Quantitative < 0.017 ng/mL (0.000-0.055) Glucose (Fingerstick) 140 mg/dL (70-99) Laboratory Tests Test 09/14/20 23:39 09/15/20 03:49 09/15/20 06:20 09/15/20 09:34 White Blood Count 8.7 x10^3/uL (4.0-11.0) Red Blood Count 4.45 x10^6/uL (3.50-5.40) Hemoglobin 13.9 g/dL (12.0-15.5) Hematocrit 40.6 % (36.0-47.0) Mean Corpuscular Volume 91 fL (79-100) Mean Corpuscular Hemoglobin 31 pg (25-35) Mean Corpuscular Hemoglobin Concent 34 g/dL (31-37) Red Cell Distribution Width 14.4 % (11.5-14.5) Platelet Count 322 x10^3/uL (140-400) Neutrophils (%) (Auto) 57 % (31-73) Lymphocytes (%) (Auto) 36 % (24-48) Monocytes (%) (Auto) 6 % (0-9) Eosinophils (%) (Auto) 1 % (0-3) Basophils (%) (Auto) 1 % (0-3) Neutrophils # (Auto) 5.0 x10^3/uL (1.8-7.7) Lymphocytes # (Auto) 3.1 x10^3/uL (1.0-4.8) Monocytes # (Auto) 0.5 x10^3/uL (0.0-1.1) Eosinophils # (Auto) 0.0 x10^3/uL (0.0-0.7) Basophils # (Auto) 0.0 x10^3/uL (0.0-0.2) Sodium Level 139 mmol/L (136-145) Potassium Level 3.7 mmol/L (3.5-5.1) Chloride Level 100 mmol/L (98-107) Carbon Dioxide Level 26 mmol/L (21-32) Anion Gap 13 (6-14) Blood Urea Nitrogen 8 mg/dL (7-20) Creatinine 1.1 mg/dL (0.6-1.0) Estimated GFR (Cockcroft-Gault) 63.1 BUN/Creatinine Ratio 7 (6-20) Glucose Level 130 mg/dL (70-99) Calcium Level 9.5 mg/dL (8.5-10.1) Total Bilirubin 0.3 mg/dL (0.2-1.0) Aspartate Amino Transf (AST/SGOT) 27 U/L (15-37) Alanine Aminotransferase (ALT/SGPT) 40 U/L (14-59) Alkaline Phosphatase 63 U/L (46-116) Troponin I Quantitative < 0.017 ng/mL (0.000-0.055) < 0.017 ng/mL (0.000-0.055) Total Protein 7.9 g/dL (6.4-8.2) Albumin 4.3 g/dL (3.4-5.0) Albumin/Globulin Ratio 1.2 (1.0-1.7) Lipase 31 U/L (73-393) Glucose (Fingerstick) 111 mg/dL (70-99) 115 mg/dL (70-99) Test 09/15/20 09:40 09/15/20 12:03 Troponin I Quantitative < 0.017 ng/mL (0.000-0.055) Glucose (Fingerstick) 140 mg/dL (70-99) VTE Prophylaxis Ordered VTE Prophylaxis Devices: No VTE Pharmacological Prophylaxi: Yes Assessment/Plan Assessment/Plan right neck pain, shoulder pain, elbow pain, will plain film at pt request radicular pain, consult physiatry, pain control Angina, r/o ACS done, CV consulted obese, BMI 36 anxiety disorder Justifications for Admission Other Justification ROB HARKINS MD Sep 15, 2020 13:50
[2020-09-15] MEDS ORDERED: DEXAMETHASONE SOD PHOS 4 MG/ML VIAL IVP ONE (14:15)
[2020-09-15] MEDS ORDERED: ACETAMINOPHEN 325 MG TABLET. PO ONE (14:30)
--- NOTE | 2020-09-15 14:32 | RAD ---
EXAM: Neck soft tissues, 2 views. HISTORY: Pain. COMPARISON: None. FINDINGS: 2 views of the neck are obtained. There is mild endplate remodeling involving the cervical spine. There is slight disc space narrowing at C5-C6. There is no fracture or suspicious osseous lesi on. The airways midline and mildly patent. No radiodense foreign body is seen. IMPRESSION: No acute osseous finding or foreign body. Electronically signed by: Dionna Wright MD (09/15/2020 2:30 PM) [facility]
[2020-09-15] MEDS ORDERED: ATORVASTATIN CALCIUM 10 MG TABLET. PO SCH (21:00)
[2020-09-16] MEDS: MORPHINE SULFATE 4 MG/ML INJ. IV PRN ×2 (02:33→10:57)
[2020-09-16 03:00] VITALS: BP 123/49
[2020-09-16 07:00] VITALS: BP 111/60
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
[2020-09-16] MEDS: LISINOPRIL 5 MG TABLET. PO SCH (10:54)
[2020-09-16] MEDS: metFORMIN 500 MG TABLET PO SCH (10:54)
[2020-09-16 11:00] VITALS: BP 128/60
--- NOTE | 2020-09-16 11:03 | NUR ---
SW following. Discussed with RN, pt from home with family, room air, ada diet, ad karlee. Cardiology following. RN advised no SW needs at this time. SW will continue to follow.
--- NOTE | 2020-09-16 13:17 | PDOC ---
PROGRESS NOTES Date of Service: DATE: 09/16/20 TIME: 13:17 Subjective Subjective Denied any chest pain today. Objective Objective Vital Signs Date Time Temp Pulse Resp B/P (MAP) Pulse Ox O2 Delivery O2 Flow Rate FiO2 09/16/20 11:43 Room Air 09/16/20 11:00 97.9 60 16 128/60 (82) 99 97.9 Intake and Output 09/16/20 07:00 Intake Total 900 ml Balance 900 ml Intake Oral 900 ml # Voids 2 Physical Exam Abdomen: Soft, No tenderness Heart: Regular rate Extremities: No clubbing, Normal pulses, Other (right arm weak, poor ROM, painful ) General: Alert, Cooperative, mild distress (arm pain) HEENT: Atraumatic, PERRLA Lungs: Clear to auscultation, Normal air movement MUSCULOSKELETAL: Osteoarthritic changes both hands Neuro: Normal speech, Sensation intact, Cranial nerves 3-12 NL Psych/Mental Status: Other (odd affect, very quiet talking) Skin: No rashes, No significant lesion Assessment Assessment 1. Chest pain with atypical features: Myocardial infarction has been ruled out based on EKG and cardiac enzymes. Plan for 2D echo to assess LV function and Lexiscan nuclear stress test to rule out ischemia as an outpatient. 2. Hypertension: Controlled 3. Hyperlipidemia: Continue statins 4. DM2: Treat per IM Plan Plan of Care Problems Medical Problems: (1) Chest pain Status: Acute Comment Review of Relevant I have reviewed the following items zay (where applicable) has been applied. Labs Laboratory Tests Test 09/15/20 16:58 09/15/20 20:30 09/16/20 03:25 09/16/20 07:47 Glucose (Fingerstick) 128 mg/dL (70-99) 214 mg/dL (70-99) 139 mg/dL (70-99) 141 mg/dL (70-99) Test 09/16/20 11:36 Glucose (Fingerstick) 131 mg/dL (70-99) Medications Current Medications Acetaminophen (Tylenol) 650 mg 1X ONCE PO Last administered on 09/15/20at 14:17; Start 09/15/20 at 14:30; Stop 09/15/20 at 14:31; Status DC Atorvastatin Calcium (Lipitor) 20 mg HS PO Last administered on 09/15/20at 21:32; Start 09/15/20 at 21:00 Dexamethasone Sodium Phosphate (Decadron) 4 mg 1X ONCE IVP Last administered on 09/15/20at 14:20; Start 09/15/20 at 14:15; Stop 09/15/20 at 14:16; Status DC Vitals/I & O Vital Sign - Last 24 Hours 09/15/20 09/15/20 09/15/20 09/15/20 15:00 18:35 19:00 19:05 Temp 98.4 98.5 98.4 98.5 Pulse 60 68 Resp 18 18 18 B/P (MAP) 93/55 (68) 99/52 (68) Pulse Ox 97 96 96 O2 Delivery Room Air Room Air Room Air 09/15/20 09/15/20 09/16/20 09/16/20 20:00 23:00 02:33 03:00 Temp 99.0 98.6 99.0 98.6 Pulse 71 62 Resp 18 18 18 B/P (MAP) 122/51 (74) 123/49 (73) Pulse Ox 98 98 97 O2 Delivery Room Air Room Air Room Air Room Air 09/16/20 09/16/20 09/16/20 09/16/20 03:03 07:00 10:54 10:57 Temp 98.3 98.3 Pulse 69 69 Resp 18 16 B/P (MAP) 111/60 (77) 111/60 Pulse Ox 98 98 O2 Delivery Room Air Room Air Room Air 09/16/20 09/16/20 11:00 11:43 Temp 97.9 97.9 Pulse 60 Resp 16 B/P (MAP) 128/60 (82) Pulse Ox 99 O2 Delivery Room Air Room Air Intake and Output 09/15/20 09/15/20 09/16/20 15:00 23:00 07:00 Intake Total 340 ml 240 ml 320 ml Balance 340 ml 240 ml 320 ml KAL NUNO MD Sep 16, 2020 13:17
[2020-09-16 15:00] VITALS: BP 138/68
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
[2020-09-16] MEDS ORDERED: DICLOFENAC SODIUM 1% TOPICAL GEL 100GM TUBE. TP SCH (16:00)
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
--- NOTE | 2020-09-16 19:34 | NUR ---
Patient discharge home with self care today accompanied by this RN. Patient is stable, IV removed, and discharge paperwork given to patient. Patient verbalized understanding of following up and discharge instruction.
== END 2020-09-16 19:36 | disposition home or self-care (01) ==
LOC: ER 23:28 → 5 SOUTH 09-15 04:13 → OBSVTOIN 09-15 23:55 → INTOOBSV 09-15 23:55
PROVIDERS: ADMIT Internal Medicine; ATTEND Internal Medicine
DX: I20.9 Angina pectoris, unspecified (principal); E78.5 Hyperlipidemia, unspecified; F41.9 Anxiety disorder, unspecified; I25.2 Old myocardial infarction; F12.90 Cannabis use, unspecified, uncomplicated; F17.200 Nicotine dependence, unspecified, uncomplicated; E78.00 Pure hypercholesterolemia, unspecified; F32.9 Major depressive disorder, single episode, unspecified; F41.0 Panic disorder [episodic paroxysmal anxiety]; G47.33 Obstructive sleep apnea (adult) (pediatric); J44.9 Chronic obstructive pulmonary disease, unspecified; K21.9 Gastro-esophageal reflux disease without esophagitis; M50.30 Other cervical disc degeneration, unspecified cervical region; E66.9 Obesity, unspecified; M54.10 Radiculopathy, site unspecified; D64.9 Anemia, unspecified; E11.42 Type 2 diabetes mellitus with diabetic polyneuropathy; G89.29 Other chronic pain; M54.5 Low back pain; M19.90 Unspecified osteoarthritis, unspecified site; R32 Unspecified urinary incontinence; I10 Essential (primary) hypertension; Z98.891 History of uterine scar from previous surgery; Z82.49 Family history of ischemic heart disease and other diseases of the circulatory system; Z98.890 Other specified postprocedural states; Z68.36 Body mass index [BMI] 36.0-36.9, adult
CPT/HCPCS: 36415; 70360; 71045; 73060; 80053; 82962; 83690; 84484; 85025; 93005; 96374; 96375; 96376; 99285; 99406; G0378; J1100; J2270; G0379

== ENCOUNTER 2020-11-05 04:03 | Observation (INO) | payer OTHER ==
[~2020-11-05] VITALS: Ht 162.6 cm; Wt 84.0 kg
[~2020-11-05 04:03] MED LIST changes: +HYDR-2765 PO
[2020-11-05 04:35] LABS: BASO % 0 % (0-3); EOS # 0.2 x10^3/uL (0.0-0.7); EOS % 2 % (0-3); HEMATOCRIT 41.2 % (36.0-47.0); LYMPH # 5.1 x10^3/uL (1.0-4.8); LYMPH % 69 % (24-48); MEAN CORPUSCULAR HEMOGLOBIN 31 pg (25-35); MEAN CORPUSCULAR HGB CONC 34 g/dL (31-37); MEAN CORPUSCULAR VOLUME 92 fL (79-100); MONO # 0.5 x10^3/uL (0.0-1.1); MONO % 7 % (0-9); NEUT # 1.6 x10^3/uL (1.8-7.7); NEUT % 22 % (31-73); PLATELET COUNT 299 x10^3/uL (140-400); RED BLOOD COUNT 4.48 x10^6/uL (3.50-5.40); RED CELL DISTRIBUTION WIDTH 14.5 % (11.5-14.5); WHITE BLOOD COUNT 7.4 x10^3/uL (4.0-11.0)
[2020-11-05 04:44] LABS: CALCIUM 9.6 mg/dL (8.5-10.1); CREATININE 1.1 mg/dL (0.6-1.0); GFR 63.1; POTASSIUM 3.5 mmol/L (3.5-5.1)
--- NOTE | 2020-11-05 04:46 | PHYS DOC ---
Past Medical History Past Medical History: Anxiety, Diabetes-Type II, High Cholesterol, Hypertension Additional Past Medical Histor: NEUROPATHY, chronic back pain, SLEEP APNEA, COVID 06/2020 Past Surgical History: , Tubal ligation, Other Additional Past Surgical Histo: HEART CATH 12/07/19 Smoking Status: Current Every Day Smoker Alcohol Use: Occasionally Drug Use: Marijuana General Adult EDM: Chief Complaint: CHEST PAIN HPI: HPI: Patient is a 50 year old female past medical history hypertension hyperlipidemia diabetes presents with a chief complaint of chest pain. Patient states onset of chest pain 0200 hours. Patient states pain is located in the center of her chest with radiation to the back. Patient denies any nausea or vomiting states she has some shortness of breath feels as if she cannot catch her breath. Review of Systems: Review of Systems: Constitutional: Denies fever or chills. [] Eyes: Denies change in visual acuity. [] HENT: Denies nasal congestion or sore throat. [] Respiratory: Denies cough Positive shortness of breath. [] Cardiovascular: Positive chest pain no edema. [] GI: Denies abdominal pain, nausea, vomiting, bloody stools or diarrhea. [] : Denies dysuria. [] Musculoskeletal: Denies back pain or joint pain. [] Integument: Denies rash. [] Neurologic: Denies headache, focal weakness or sensory changes. [] Endocrine: Denies polyuria or polydipsia. [] Lymphatic: Denies swollen glands. [] Psychiatric: Denies depression or anxiety. [] Heart Score: C/O Chest Pain: Yes HEART Score for Chest Pain: HEART Score for Chest Pain Response (Comments) Value ECG Nonspecific Repolarizatio 1 Age >45 - < 65 1 Risk Factors >3 Risk Factors or Hx CAD 2 Troponin < Normal Limit 0 Total 4 Risk Factors: Risk Factors: DM, Current or recent (<one month) smoker, HTN, HLP, family history of CAD, obesity. Risk Scores: Score 0 - 3: 2.5% MACE over next 6 weeks - Discharge Home Score 4 - 6: 20.3% MACE over next 6 weeks - Admit for Clinical Observation Score 7 - 10: 72.7% MACE over next 6 weeks - Early Invasive Strategies Allergies: Allergies: Allergies Coded Allergies Type Severity Reaction Last Updated Verified ibuprofen Adverse Reaction Intermediate Nausea 11/07/15 Yes naproxen Adverse Reaction Intermediate Nausea 11/07/15 Yes Physical Exam: PE: Constitutional: Well developed, well nourished, no acute distress, non-toxic appearance. [] HENT: Normocephalic, atraumatic, bilateral external ears normal, oropharynx moist, no oral exudates, nose normal. [] Eyes: PERRLA, EOMI, conjunctiva normal, no discharge. [] Neck: Normal range of motion, no tenderness, supple, no stridor. [] Cardiovascular:Heart rate regular rhythm, no murmur [] Lungs & Thorax: Bilateral breath sounds clear to auscultation [] Abdomen: Bowel sounds normal, soft, no tenderness, no masses, no pulsatile masses. [] Skin: Warm, dry, no erythema, no rash. [] Back: No tenderness, no CVA tenderness. [] Extremities: No tenderness, no cyanosis, no clubbing, ROM intact, no edema. [] Neurologic: Alert and oriented X 3, normal motor function, normal sensory function, no focal deficits noted. [] Psychologic: Affect normal, judgement normal, mood normal. [] Current Patient Data: Labs: Laboratory Tests Test 11/05/20 04:25 White Blood Count 7.4 x10^3/uL (4.0-11.0) Red Blood Count 4.48 x10^6/uL (3.50-5.40) Hemoglobin 14.0 g/dL (12.0-15.5) Hematocrit 41.2 % (36.0-47.0) Mean Corpuscular Volume 92 fL (79-100) Mean Corpuscular Hemoglobin 31 pg (25-35) Mean Corpuscular Hemoglobin Concent 34 g/dL (31-37) Red Cell Distribution Width 14.5 % (11.5-14.5) Platelet Count 299 x10^3/uL (140-400) Neutrophils (%) (Auto) 22 % (31-73) L Lymphocytes (%) (Auto) 69 % (24-48) H Monocytes (%) (Auto) 7 % (0-9) Eosinophils (%) (Auto) 2 % (0-3) Basophils (%) (Auto) 0 % (0-3) Neutrophils # (Auto) 1.6 x10^3/uL (1.8-7.7) L Lymphocytes # (Auto) 5.1 x10^3/uL (1.0-4.8) H Monocytes # (Auto) 0.5 x10^3/uL (0.0-1.1) Eosinophils # (Auto) 0.2 x10^3/uL (0.0-0.7) Basophils # (Auto) 0.0 x10^3/uL (0.0-0.2) Platelet Estimate Pending Laboratory Tests 11/05/20 04:25 EKG: EKG: [] Performed at 0419 Rate [address] elevation No ST depression No acute MN Radiology/Procedures: Radiology/Procedures: [] Impression: Wet read chest x-ray no focal infiltrate Course & Med Decision Making: Course & Med Decision Making Pertinent Labs and Imaging studies reviewed. (See chart for details) [] Patient was evaluated for chief complaint. Work-up consisted of laboratory analysis radiologic imaging and EKG. Results reviewed and discussed with the patient. EKG within normal limits troponin negative. Patient admitted to hospitalist for cardiology consult CT angio of chest pending. Dragon Disclaimer: Dragon Disclaimer: This electronic medical record was generated, in whole or in part, using a voice recognition dictation system. Departure Departure Impression: Primary Impression: Chest pain Disposition: ADMITTED INPATIENT Condition: STABLE Referrals: NI VALENZUELA DO (PCP) Scripts Hydrocodone Bit/Acetaminophen (HYDROCODONE-APAP 7.5-325 ) 1 Tab Tablet 1 TAB PO PRN Q6HRS PRN for PAIN for 10 Days, #20 TAB 0 Refills Prov: NEFTALY HAYES III, DO 11/05/20 SHERLYN HILLAMN DO Nov 05, 2020 04:46
[2020-11-05 04:50] LABS: ALBUMIN 3.8 g/dL (3.4-5.0); TOTAL BILIRUBIN 0.2 mg/dL (0.2-1.0); TOTAL PROTEIN 7.8 g/dL (6.4-8.2)
[2020-11-05 05:12] LABS: % ATYL 10 % (0-0); % LYMPHS 58 % (24-48); % MONOS 5 % (0-10); % SEGS 27 % (35-66); PLT ESTIMATE ADEQUATE (ADEQUATE)
[2020-11-05] MEDS ORDERED: IOHEXOL 350 MG/ML 100 ML VIAL. IV ONE (06:30)
[2020-11-05] MEDS ORDERED: CONTRAST GIVEN. MC PRN (06:30)
[2020-11-05 07:45] VITALS: BP 103/73
[2020-11-05] MEDS ORDERED: MAG HYDROX/ALUMINUM HYD/SIMETH 30 ML ORAL.SUSP PO PRN (08:15)
[2020-11-05] MEDS ORDERED: MORPHINE SULFATE 2 MG/ML INJ. IVP PRN (08:15)
[2020-11-05 10:52] VITALS: BP 130/78
--- NOTE | 2020-11-05 12:02 | PDOC2 ---
BUBBA TRINIDAD CRYPTOGRAPHIC TECHNICIAN 11/05/20 1202: CARDIAC CONSULT DATE OF CONSULT Date of Consult DATE: 11/05/20 TIME: 11:56 REASON FOR CONSULT Reason for Consult: Chest pain REFERRING PHYSICIAN Referring Physician: Cuong SOURCE Source: Chart review, Patient HISTORY OF PRESENT ILLNESS HISTORY OF PRESENT ILLNESS This is a pleasant 50 yo female admitted for complains of chest pain. Reports of chest pressure mid to left chest that radiates to immediate back. No SOA but notable with exertion per her report. No fever chills, cough. Denies any recent falls. Has some heartburn and has stopped taking PPI claiming it does not work. PAST MEDICAL HISTORY Past Medical History Cardiovascular: HTN, Hyperlipidemia Pulmonary: COPD, Other CENTRAL NERVOUS SYSTEM: Periperal neuropathy GI: GERD Heme/Onc: Anemia NOS Hepatobiliary: No pertinent hx Psych: Anxiety, Depression, Panic Musculoskeletal: Osteoarthritis, Other Rheumatologic: No pertinent hx Infectious disease: No pertinent hx Renal/: Urinary Incontinence, Other Endocrine: Diabetes PAST SURGICAL HISTORY Past Surgical History: Tubal Ligation FAMILY HISTORY Family History: Heart Disease SOCIAL HISTORY Smoke: No ALCOHOL: none Drugs: None Lives: with Family CURRENT MEDICATIONS CURRENT MEDICATIONS Current Medications Medications (Trade) Dose Ordered Sig/Isis Route PRN Reason Start Time Stop Time Status Last Admin Dose Admin Iohexol (Omnipaque 350 Mg/ml) 100 ml 1X ONCE IV 11/05/20 06:30 11/05/20 06:31 DC 11/05/20 06:34 Morphine Sulfate (Morphine Sulfate) 2 mg PRN Q2HR PRN IVP PAIN 11/05/20 08:15 11/05/20 08:39 Al Hydroxide/Mg Hydroxide (Mylanta Plus Xs) 30 ml PRN Q2HR PRN PO HEARTBURN / GAS 11/05/20 08:15 11/05/20 08:39 ALLERGIES ALLERGIES: Coded Allergies: ibuprofen (Verified Adverse Reaction, Intermediate, Nausea, 11/07/15) naproxen (Verified Adverse Reaction, Intermediate, Nausea, 11/07/15) ROS Review of System 14 po9int ROS evlauated with pertinent positives noted per HPI PHYSICAL EXAM General: Alert, Oriented X3, Cooperative, No acute distress HEENT: Atraumatic, Mucous membr. moist/pink Lungs: Clear to auscultation, Normal air movement Heart: Regular rate (SR), Normal S1, Normal S2, No murmurs Abdomen: Soft, No tenderness Extremities: No cyanosis, No edema Skin: No significant lesion Neuro: Normal speech, Sensation intact Psych/Mental Status: Mental status NL, Mood NL MUSCULOSKELETAL: Full range of motion without pain VITALS/I&O VITALS/I&O: Vital Signs Date Time Temp Pulse Resp B/P (MAP) Pulse Ox O2 Delivery O2 Flow Rate FiO2 11/05/20 11:29 100 11/05/20 10:52 97.7 65 18 130/78 (95) Room Air 97.7 LABS Lab: Laboratory Tests Test 11/05/20 04:25 11/05/20 05:36 11/05/20 08:16 White Blood Count 7.4 x10^3/uL (4.0-11.0) Red Blood Count 4.48 x10^6/uL (3.50-5.40) Hemoglobin 14.0 g/dL (12.0-15.5) Hematocrit 41.2 % (36.0-47.0) Mean Corpuscular Volume 92 fL (79-100) Mean Corpuscular Hemoglobin 31 pg (25-35) Mean Corpuscular Hemoglobin Concent 34 g/dL (31-37) Red Cell Distribution Width 14.5 % (11.5-14.5) Platelet Count 299 x10^3/uL (140-400) Neutrophils (%) (Auto) 22 % (31-73) L Lymphocytes (%) (Auto) 69 % (24-48) H Monocytes (%) (Auto) 7 % (0-9) Eosinophils (%) (Auto) 2 % (0-3) Basophils (%) (Auto) 0 % (0-3) Neutrophils # (Auto) 1.6 x10^3/uL (1.8-7.7) L Lymphocytes # (Auto) 5.1 x10^3/uL (1.0-4.8) H Monocytes # (Auto) 0.5 x10^3/uL (0.0-1.1) Eosinophils # (Auto) 0.2 x10^3/uL (0.0-0.7) Basophils # (Auto) 0.0 x10^3/uL (0.0-0.2) Segmented Neutrophils % 27 % (35-66) L Lymphocytes % 58 % (24-48) H Atypical Lymphocytes % (Manual) 10 % (0-0) H Monocytes % 5 % (0-10) Platelet Estimate Adequate (ADEQUATE) Sodium Level 139 mmol/L (136-145) Potassium Level 3.5 mmol/L (3.5-5.1) Chloride Level 103 mmol/L (98-107) Carbon Dioxide Level 29 mmol/L (21-32) Anion Gap 7 (6-14) Blood Urea Nitrogen 9 mg/dL (7-20) Creatinine 1.1 mg/dL (0.6-1.0) H Estimated GFR (Cockcroft-Gault) 63.1 BUN/Creatinine Ratio 8 (6-20) Glucose Level 137 mg/dL (70-99) H Calcium Level 9.6 mg/dL (8.5-10.1) Total Bilirubin 0.2 mg/dL (0.2-1.0) Aspartate Amino Transferase (AST) 18 U/L (15-37) Alanine Aminotransferase (ALT) 42 U/L (14-59) Alkaline Phosphatase 60 U/L (46-116) Troponin I Quantitative < 0.017 ng/mL (0.000-0.055) Total Protein 7.8 g/dL (6.4-8.2) Albumin 3.8 g/dL (3.4-5.0) Albumin/Globulin Ratio 1.0 (1.0-1.7) D-Dimer (Jesika) < 0.27 ug/mlFEU Glucose (Fingerstick) 118 mg/dL (70-99) H Laboratory Tests 11/05/20 04:25 Laboratory Tests 11/05/20 04:25 ASSESSMENT/PLAN ASSESSMENT/PLAN 1. Chest pain: possibly GI 2. HTN: controlled 3. HLP 4. Obesity 5. GERD 6. Metabolic syndrome Recommendations 1. Restart home PPI 2. May DC today. Outpt TTE and MPI tomorrow 3. Continue secondary prevention measures KAL NUNO MD 11/06/20 0629: CARDIAC CONSULT ASSESSMENT/PLAN ASSESSMENT/PLAN Patient seen and examined. Agree with APPEALS REFEREE's assessment and plan. CP very atypical and most prob GI etiology [place] ruled out Plan outpatient echo and MPI OK to DC from cardiac standpoint Thank you for your consultation BUBBA TRINIDAD APRN Nov 05, 2020 12:02 KAL NUNO MD Nov 06, 2020 06:29
--- NOTE | 2020-11-05 12:18 | NUR ---
SS following for discharge planning. SS reviewed pt chart and discussed with pt RN. Pt is from home and is currently on room air. Cardiology consulted. Chest x-ray and abdominal ultrasound today. Discharge plan is currently to home when medically ready for discharge. SS will continue to follow for discharge planning.
[2020-11-05] MEDS ORDERED: HYDR-2765 PO (13:14)
--- NOTE | 2020-11-05 13:59 | EKG ---
[facility] [address] [place] [address] Test Date: 2020-11-05 Test Time: 04:19:24 Pat Name: KEKE ADAM Department: Room: Gender: F Filenet Admin: : 1970 Requested By: SHERLYN HILLMAN Order Number: [id number] Reading MD: Measurements Intervals [place] Rate: 78 P: 37 MS: 156 QRS: 28 QRSD: 74 T: 36 QT: 374 QTc: 430 Interpretive Statements SINUS RHYTHM QRS(T) CONTOUR ABNORMALITY CONSIDER ANTEROSEPTAL MYOCARDIAL DAMAGE POSSIBLY ABNORMAL ECG RI6.01 Compared to ECG 11/05/2020 04:17:52 T-wave abnormality no longer present
--- NOTE | 2020-11-05 13:59 | RAD ---
EXAM: CT ANGIOGRAPHY OF THE CHEST WITH AND WITHOUT CONTRAST. HISTORY: Chest pain, shortness of breath. TECHNIQUE: Computed tomographic angiography of the chest was performed before and after the intraveno us administration of Isovue 370. 3-D maximum intensity projections were also performed. One or more o f the following individualized dose reduction techniques were utilized for this examination: 1. Automated exposure control. 2. Adjustment of the mA and/or kV according to patient size. 3. Use of iterative reconstruction technique. COMPARISON: None. FINDINGS: Images of the upper abdomen reveal benign-appearing hepatic cysts measuring up to 1.9 cm. B one windows reveal no suspicious lesions. No pulmonary emboli are identified. There is no aortic dissection or aneurysm. There is moderate to s evere stenosis at the origin of the left subclavian artery. There is a variant origin of the left vanita tebral artery directly from the aortic arch, lateral to the left subclavian origin. There are no pathologically enlarged mediastinal or axillary lymph nodes. There is no pleural or antoine cardial effusion. The heart is not enlarged. A 3 mm pleural-based nodule in the right lower lobe on image 100 is likely benign at this small size. There are calcified granulomas in the upper lobes. IMPRESSION: 1. No pulmonary embolism. 2. Moderate to severe stenosis at the origin of the left subclavian artery. Electronically signed by: Charbel Sullivan MD (11/05/2020 7:06 AM) [facility]
--- NOTE | 2020-11-05 14:00 | SSS ---
ADMIT DATE: 11/05/2020 CHIEF COMPLAINT: Chest pain. HISTORY OF PRESENT ILLNESS: The patient is a pleasant 50-year-old female who presents with chest pain. She also complains of abdominal pain. We admitted the patient overnight for observation this morning and she is doing better. I checked an ultrasound of her gallbladder and it is negative. Her troponins are negative. Cardiology feels like she can probably go home. We plan to discharge. PAST MEDICAL HISTORY: Anxiety, depression, hyperlipidemia, neuropathy, chronic pain, possible narcotic dependence, obstructive sleep apnea, COVID-19 in June of this year, , tubal ligation, cardiac cath, tobacco abuse, marijuana use. ALLERGIES: IBUPROFEN, NAPROXEN. FAMILY HISTORY: Diabetes. SOCIAL HISTORY: She smokes cigarettes and marijuana. She does not work. MEDICATIONS: Reviewed, please refer to the MRAD. Lortab 7.5 q. 6 hours p.r.n., Lipitor 20, cyclobenzaprine 10 q.i.d. p.r.n., lisinopril 5 a day, Xanax 0.5, Zofran 4 q. 6, Protonix 40 a day and metformin 500 daily. REVIEW OF SYSTEMS: GENERAL: No history of weight change, weakness or fevers. SKIN: No bruising, hair changes or rashes. EYES: No blurred, double or loss of vision. NOSE AND THROAT: No history of nosebleeds, hoarseness or sore throat. HEART: No history of palpitations, chest pain or shortness of breath on exertion. LUNGS: Denies cough, hemoptysis, wheezing or shortness of breath. GASTROINTESTINAL: Denies changes in appetite, nausea, vomiting, diarrhea or constipation. GENITOURINARY: No history of frequency, urgency, hesitancy or nocturia. NEUROLOGIC: Denies history of numbness, tingling, tremor or weakness. PSYCHIATRIC: No history of panic, anxiety or depression. ENDOCRINE: No history of heat or cold intolerance, polyuria or polydipsia. EXTREMITIES: Denies muscle weakness, joint pain, pain on walking or stiffness. PHYSICAL EXAMINATION: VITALS: Within normal limits and are stable. GENERAL: No apparent distress. Alert and oriented. HEENT: Normal cephalic atraumatic, external auditory canals are patent EYES: Extraocular muscles are intact, pupils are equally round and reactive to light and accommodation MUSKULOSKELETAL: Well developed, well nourished, good range of motion ENDOCRINE: No thyromegaly was palpated LYMPHATICS: No cervical chain or axillary nodes were noted HEMATOPOIETIC: No bruising NECK: Supple, no JVD, no thyromegaly was noted. LUNGS: Clear to auscultation in all lung manzano without rhonchi or wheezing. HEART: RRR, S1, S2 present. Peripheral pulses intact, no obvious murmurs were noted. ABDOMEN: Soft, nontender. Positive bowel sounds no organomegaly, normal bowel sounds. EXTREMITIES: Without any cyanosis, clubbing, or edema. Pedal pulses intact, Homans sign is negative. NEUROLOGIC: Normal speech, normal tone. A and O x3, moves all extremities, no obvious focal deficits. PSYCHIATRIC: Normal affect, normal mood. Stable. SKIN: No ulcerations or rashes, good skin turgor, no jaundice. VASCULAR: Good capillary refill, neurovascular bundle appears to be intact. Troponin is 0. Ultrasound of the abdomen does not show any gallstones. ASSESSMENT AND PLAN: Resolving atypical chest pain. We will go ahead and discharge. DISPOSITION: Home. ACTIVITY: As tolerated. DIET: Low sodium. Total time is 31 minutes. DOYLE/COURT DR: DOYLE/giancarlo TID: [id number]
[2020-11-05 15:00] VITALS: BP 144/94
--- NOTE | 2020-11-05 16:20 | RAD ---
Right upper quadrant abdominal ultrasound History: Reason: abd pain / Comparison: CT PE, earlier same day. Technique: Transabdominal ultrasound images are obtained. Findings: Visualized pancreas is unremarkable. Liver is normal in echogenicity. There is a left hepatic lobe cyst containing a thin septation. The c yst measures 2 cm. Right hepatic lobe measures 17.1 cm. Portal flow is hepatopedal. Gallbladder has an unremarkable appearance. Common bile duct is mildly dilated measuring 8 mm in diameter. The right kidney measures 12.3 cm in length. There is no hydronephrosis. Visualized portions of the aorta and IVC have normal caliber. IMPRESSION: 1. The common bile duct is mildly dilated measuring 8 mm. Suggest correlation with laboratory values . 2. Left hepatic lobe cyst. Electronically signed by: Grant Ramey MD (11/05/2020 4:18 PM) [id number]
--- NOTE | 2020-11-05 17:55 | NUR ---
Pt called out to inform staff that she was "spitting up blood". Upon further investigation, pt recently had multiple teeth extracted from the dentist office. Pt educated that teeth extraction can occasionally bleed especially once the gums have been brushed. Pt verbalized that "I never bleed after they took my teeth", "This isn't from my teeth, something is wrong". Pt and staff talked regarding patient feelings regarding discharge. Pt states "I won't lie, I'm scared". Upon further investigation of patient feelings, she stated that spitting blood made her afraid. Pt educated once again on brushing gums post teeth extraction. Pt then stated she was also afraid of "this pain". Pt stated she feels as though it was never resolved and that it seems to be moving up and is going to choke her. Pt then educated on GERD and the importance of taking a PPI everyday as prescribed by her primary physician. Pt stated that she did not take it regularly because she did not feel like it helped. Pt educated that unless she were to take it regularly it would not help. Pt verbalized understanding. Pt continuing to request to not discharge and stating that we should check her blood pressure. VS stable. Patient finally agreeable to DC if pt family could come to the facility to help her get home.
[2020-11-05] MEDS ORDERED: LIDO:MAALOX 1:1 20 ML SINGLE DOSE. SWSW ONE (19:00)
--- NOTE | 2020-11-05 19:05 | NUR ---
Discharge Note: KEKE ADAM [facility] Discharge instructions and discharge home medications reviewed with Patient. Pt stable at time of DC. Walked with staff to private vehicle.
--- NOTE | 2020-11-05 23:27 | RAD ---
EXAM: CHEST ONE VIEW. HISTORY: Chest pain. COMPARISON: 09/15/2020. FINDINGS: A frontal view of the chest is obtained. There are no confluent infiltrates. There is no pneumothorax or pleural effusion. The heart is not en larged. IMPRESSION: 1. No confluent infiltrates. Electronically signed by: Charbel Sulliavn MD (11/05/2020 11:25 PM) [facility]
== END 2020-11-05 19:16 | disposition home or self-care (01) ==
LOC: ER 04:03 → 6 SOUTH 05:55
PROVIDERS: ADMIT Internal Medicine; ATTEND Internal Medicine
DX: R07.89 Other chest pain (principal); E11.42 Type 2 diabetes mellitus with diabetic polyneuropathy; E88.81 Metabolic syndrome and other insulin resistance; E66.9 Obesity, unspecified; E78.00 Pure hypercholesterolemia, unspecified; E78.5 Hyperlipidemia, unspecified; F12.90 Cannabis use, unspecified, uncomplicated; I10 Essential (primary) hypertension; J44.9 Chronic obstructive pulmonary disease, unspecified; K21.9 Gastro-esophageal reflux disease without esophagitis; F17.210 Nicotine dependence, cigarettes, uncomplicated; Z98.891 History of uterine scar from previous surgery; Z79.899 Other long term (current) drug therapy
CPT/HCPCS: 36415; 71045; 71275; 76705; 80053; 82962; 84484; 85007; 85025; 85379; 93005; 96374; 99285; G0378; J2270; Q9967; G0379

== ENCOUNTER → 2020-11-06 | Outpatient (CLI) | payer OTHER ==
[2020-11-05 15:00] VITALS: BP 144/94
[~2020-11-06] MED LIST changes: +REGADENOSON 0.4 MG/5 ML DISP.SYRIN. IV ONE
--- NOTE | 2020-11-06 15:40 | CARD ---
MR#: [id number] Date of Study: 11/06/2020 Ordering Physician: KAL HERNANDES, Referring Physician: KAL HERNANDES, Tech: Rica Reyes [facility] APPROVED REPORT EXAM: Two-dimensional and M-mode echocardiogram with Doppler and color Doppler. Other Information Quality : AverageHR: 70bpm INDICATION Chest Pain RISK FACTORS Hypertension Hyperlipidemia Diabetes Smoking 2D DIMENSIONS RVDd3.1 (2.9-3.5cm)Left Atrium(2D)3.0 (1.6-4.0cm) IVSd0.9 (0.7-1.1cm)Aortic Root(2D)2.6 (2.0-3.7cm) LVDd4.1 (3.9-5.9cm)LVOT Diameter2.0 (1.8-2.4cm) PWd1.0 (0.7-1.1cm)LVDs2.9 (2.5-4.0cm) FS (%) 29.1 %SV42.0 ml LVEF(%)56.3 (>50%) Aortic Valve AoV Peak Jose.190.0cm/sAoV VTI38.1cm AO Peak GR.14.4mmHgLVOT Peak Jose.85.6cm/s LVOT VTI 17.63cmAO Mean GR.7mmHg ANNEMARIE (VMAX)1.41om7AKZ (VTI)1.50cm2 Mitral Valve MV E Miwnevop10.3cm/sMV DECEL JXTI979fn MV A Qgnyvwpm95.8cm/sMV E Mean Gr.1mmHg MV KIK18zpO/A Ratio1.4 MVA (PHT)3.09cm2 TDI E/Lateral E'5.1E/Medial E'8.1 Pulmonary Valve PV Peak Zvuqyaap62.6cm/sPV Peak Grad.3mmHg Tricuspid Valve TR P. Filkixya113om/sRAP STTIFLQC1ifQu TR Peak Gr.63ryXgZIPL21arSv Pulmonary Vein S1 Yzhlhttr82.2cm/sD2 Ebeqnpnz74.4cm/s PVa kyajhiac17kydk LEFT VENTRICLE The left ventricle is normal size. There is normal left ventricular wall thickness. The left ventricu lar systolic function is normal. The Ejection Fraction is 55%. There is normal LV segmental wall bhavana on. The left ventricular diastolic function and filling is normal for age. RIGHT VENTRICLE The right ventricle is normal size. There is normal right ventricular wall thickness. The right ventr icular systolic function is normal. ATRIA The left atrium size is normal. The right atrium size is normal. The interatrial septum is intact wit h no evidence for an atrial septal defect or patent foramen ovale as noted on 2-D or Doppler imaging. AORTIC VALVE The aortic valve is calcified but opens well. Doppler and Color Flow revealed trace aortic regurgitat ion. There is no significant aortic valvular stenosis. Calculated aortic valve area is 1.59 cm2 with maximum pressure gradient of 17 mmHg and mean pressure gradient of 8 mmHg. MITRAL VALVE The mitral valve is normal in structure and function. There is no evidence of mitral valve prolapse. There is no mitral valve stenosis. Doppler and Color-flow revealed trace mitral regurgitation. TRICUSPID VALVE The tricuspid valve is normal in structure and function. Doppler and Color Flow revealed trace tricus pid regurgitation with an estimated PAP of 25 mmHg. There is no tricuspid valve stenosis. PULMONIC VALVE The pulmonary valve is normal in structure and function. Doppler and Color Flow revealed trace pulmon ic valvular regurgitation. GREAT VESSELS The aortic root is normal in size. The ascending aorta is normal in size. The IVC is normal in size a nd collapses >50% with inspiration. PERICARDIAL EFFUSION There is no evidence of significant pericardial effusion. Critical Notification Critical Value: No <Conclusion> The left ventricular systolic function is normal. The Ejection Fraction is 55%. There is normal LV segmental wall motion. Trace mitral regurgitation. Trace tricuspid regurgitation with an estimated PAP of 25 mmHg. There is no evidence of significant pericardial effusion. Signed by : Kal Hernandes, Electronically Approved : 11/06/2020 15:40:16
--- NOTE | 2020-11-06 16:00 | RAD ---
MR#: [id number] Date of Study: 11/06/2020 Ordering Physician: KAL NUNO, Referring Physician: HARSHA DALLAS Tech: Dionna Jacinto RT (R) (N) APPROVED REPORT Test Type: Pharmacological Stress Nurse/Tech: Josiah Casas RN Test Indications: Chest Pain Cardiac History: HTN, See EMR. Medications: ASA 81mg, See EMR. Medical History: Smoker=1pk QD, DM, See EMR. Resting ECG: SR Resting Heart Rate: 62 bpm Resting Blood Pressure: 127/63mmHg Pretest Chest Pain: No chest pain Nurse/Tech Notes Lungs CTA, Heart tones regular. Consent: The procedure was explained to the patient in lay terms. Informed consent was witnessed. Cedrick eout was entered into [employer]. History and Stress Test performed by FLAKITA Keen, CHOLO (R) (N) Pharm. Details Pharmacologic stress testing was performed using 0.4mg per 5ml of regadenoson given intravenously ove r 7-10 seconds. Stress Symptoms No chest pain or symptoms. POST EXERCISE Reason for Termination: Infusion complete Max HR: 93 bpm Max Blood Pressure: 135/59mmHg Blood Pressure response to exercise: Normal blood pressure response during stress. Heart Rate response to exercise: WNL Chest Pain: No. Arrhythmia: No. ST Change: No. INTERPRETATION Stress EKG Conclusion: Baseline EKG showed sinus rhythm. No ischemic changes at peak stress. No arr hythmias. Imaging Protocol IMAGE PROTOCOL: Rest Tc-99m/stress Tc-99m 1 day Rest: Stress: Viability: Radiopharm.Tc99m MoasdlgmbGg09s Sestamibi Chvu18wHx 31mCi Duration 15min. 10min. Img Date 11/06/2020 11/06/2020 Inj-Img Ntay94udm. 60min. Rest Admin Site:IV - Left HandAdministrator:FLAKITA Keen, CHOLO (R)(N) Stress Admin Site: IV - Left HandAdministrator: FLAKITA Keen ARRT (R)(N) STRESS DATA End Diast. Vol.90.0mlAv. Heart Rate76.0bpm End Syst. Vol.24.0mlCO Index BSA0.0L/min Myocardial Zwto098.0gEject. Ufvvlrdi10.0% Stress Rates Pk. Fill Rate3.16EDV/secLVtime Pk. Fill 227.46msec Pk. Empty Rate4.69ESV/secLVtime Pk. Amvmu585.34msec 1/3 Pk. Fill1.86EDV/sec Stress Scores Regional WT0.00Summed WT0.00 Regional WM0.00Summed WM0.00 Study quality was good. Left Ventricular size was Normal at Rest and Stress. Lung uptake was . Left Ventricular ejection fraction is 74%. The rest and stress images show normal perfusion, normal contraction and thickening. LV Perf. Quant 17 Seg. SSS0.00 17 Seg. SRS0.00 17 Seg. SDS0.00 Stress Defect Extent (% LAD)0.00Rest Defect Extent (% LAD)0.00Rev. Defect Extent (% LAD)0.00 Stress Defect Extent (% LCX) 0.00Rest Defect Extent (% LCX)0.00Rev. Defect Extent (% LCX)0.00 Stress Defect Extent (% RCA)0.00Rest Defect Extent (% RCA)0.00Rev. Defect Extent (% RCA)0.00 Stress Defect Extent (% PATRICIA)0.00Rest Defect Extent (% PATRICIA)0.00Rev. Defect Extent (% PATRICIA)0.00 Conclusion 1. Regadenoson cardioisotope stress test did not show any evidence of ischemia or infarct. 2. Normal left ventricular systolic function with ejection fraction calculated at 74%. 3. Low risk for cardiac events. Signed by : Kal Nuno, Electronically Approved : 11/06/2020 15:59:29
== END ==
LOC: ECHO 09:53
PROVIDERS: ATTEND Internal Medicine Cardiovascular Disease
DX: R07.9 Chest pain, unspecified (principal)
CPT/HCPCS: 78452; 82962; 93017; 93306; A9500; J2785

== ENCOUNTER 2021-01-01 23:51 | Emergency (ER) | payer OTHER ==
[~2021-01-01] VITALS: Ht 162.6 cm; Wt 86.0 kg
[~2021-01-01 23:51] MED LIST changes: +CYCL10TA19 PO; -CYCL10TA2 PO; -LISI-517 PO; +LISI5TAB15 PO; -REGADENOSON 0.4 MG/5 ML DISP.SYRIN. IV ONE
--- NOTE | 2021-01-02 00:27 | PHYS DOC ---
Past Medical History Past Medical History: Anxiety, Diabetes-Type II, High Cholesterol, Hypertension Additional Past Medical Histor: NEUROPATHY, chronic back pain, SLEEP APNEA, COVID 06/2020 Past Surgical History: , Tubal ligation, Other Additional Past Surgical Histo: HEART CATH 12/07/19 Smoking Status: Current Every Day Smoker Alcohol Use: Occasionally Drug Use: Marijuana General Adult EDM: Chief Complaint: DENTAL PROBLEM HPI: HPI: Patient is a 50-year-old female who presents to the emergency department for dental pain. Patient reports that on December 30 she had some teeth pulled. She has been taking Tylenol threes without any relief in pain. Her last dose was 1 hour ago. She rates her pain 10 on . She has a history of chronic pain. Patient also has a history of hypertension her blood pressure is elevated in the emergency department. She denies chest pain, fevers, shortness of breath, dizziness or headache. Review of Systems: Review of Systems: Constitutional: See HPI HENT: See HPI Respiratory: See HPI Cardiovascular: See HPI Neurologic: See HPI Heart Score: C/O Chest Pain: No Risk Factors: Risk Factors: DM, Current or recent (<one month) smoker, HTN, HLP, family history of CAD, obesity. Risk Scores: Score 0 - 3: 2.5% MACE over next 6 weeks - Discharge Home Score 4 - 6: 20.3% MACE over next 6 weeks - Admit for Clinical Observation Score 7 - 10: 72.7% MACE over next 6 weeks - Early Invasive Strategies Allergies: Allergies: Allergies Coded Allergies Type Severity Reaction Last Updated Verified ibuprofen Adverse Reaction Intermediate Nausea 11/07/15 Yes naproxen Adverse Reaction Intermediate Nausea 11/07/15 Yes Physical Exam: PE: Constitutional: Well developed, well nourished, no acute distress, non-toxic appearance. [] HENT: Normocephalic, atraumatic, bilateral external ears normal, oropharynx moist, no oral exudates, uvula midline, 6 and 7 that per teeth missing with purulent drainage noted to the site, no visible abscess, no trismus, no phonation changes nose normal. [] Eyes: PERRL, EOMI, conjunctiva normal, no discharge. [] Neck: Normal range of motion, no stridor Cardiovascular:Heart rate regular rhythm, no murmur [] Lungs & Thorax: Bilateral breath sounds clear to auscultation [] Abdomen: Bowel sounds normal, soft, no tenderness, no masses, no pulsatile masses. [] Skin: Warm, dry, no erythema, no rash. [] Back: Normal range of motion Extremities: No tenderness, no cyanosis, no clubbing, ROM intact, no edema. [] Neurologic: Alert and oriented X 3, normal motor function, normal sensory function, no focal deficits noted. [] Psychologic: Affect normal, judgement normal, mood normal. [] Current Patient Data: Labs: Laboratory Tests Test 01/02/21 00:09 Glucose (Fingerstick) 108 mg/dL (70-99) H EKG: EKG: [] Radiology/Procedures: Radiology/Procedures: [] Course & Med Decision Making: Course & Med Decision Making Pertinent Labs and Imaging studies reviewed. (See chart for details) [] Patient presents to the emergency department today for dental pain. Upon physical assessment it appears that there is some purulent drainage noted at one of the sites where her tooth was pulled. She will be treated with an antibiotic. In regards to her pain, Hurricaine spray was used and patient was given an intramuscular injection of pain medication. Patient has a history of chronic pain. Patient's blood pressure was elevated in the ER. She reports that she takes 5 mg of lisinopril daily. Patient is very hysterical and tearful in the room, I think this is likely the cause of her elevated blood pressure. She is asymptomatic. Following treatment for pain, patient is blood pressure was 206/92. Patient advised to take her Tylenol #3 that she is previously prescribed for her pain. She is also advised to follow-up with her dentist tomorrow. I discussed with patient all findings as well as the need to follow- up with PCP for further evaluation and treatment or return to the ER if any new or worsening symptoms. Strict return precautions were also discussed at length. Patient voiced understanding and agreement with the plan. Patient is hemodynamically stable at the time of disposition. Dragon Disclaimer: Jenny Disclaimer: This electronic medical record was generated, in whole or in part, using a voice recognition dictation system. Departure Departure Impression: Primary Impression: Pain, dental Disposition: HOME / SELF CARE / HOMELESS Condition: GOOD Referrals: NI VALENZUELA DO (PCP) Patient Instructions: Dental Pain Additional Instructions: You were seen in the emergency department today for dental pain. You were given a pain shot in the ER. You were also started on an antibiotic. For your dental pain you can continue to take your Tylenol threes that you are previously prescribed. Continue taking the antibiotic at home. Follow-up with your dentist tomorrow regarding your ER visit. Your blood pressure was elevated in the emergency department, likely due to your level of pain. However, continue to take your blood pressure medication as directed and monitor your blood pressu re at home. Return to the emergency department if you develop worsening of your pain, difficulty breathing or swallowing, chest pain, high fevers refractory to treatment, intractable nausea or vomiting, dizziness. EMERGENCY DEPARTMENT GENERAL DISCHARGE INSTRUCTIONS Thank you for coming to [facility] Emergency Department (ED) today and trusting us with you care. We trust that you had a positive experience in our Emergency Department. If you wish to speak to the department management, you may call the Director at [phone]. YOUR FOLLOW UP INSTRUCTIONS ARE FOLLOWS: 1. Do you have a private Doctor? If you do not have a private doctor, please ask for a resource list of physicians or clinics that may be able to assist you with f ollow up care. 2. The Emergency Physicain has interpreted your x-rays. The X-Ray specialist will also review them. If there is a change in the findings, you will be notified in 48 hours when at all possible. 3. A lab test or culture has been done, your results will be reviewed and you will be notified if you need a change in treatment. ADDITIONAL INSTRUCTIONS AND INFORMATION: 1. Your care today has been supervised by a physician who is specially trained in emergency care. Many problems require more than one evaluation for a complete diagnosis and treatment. We recommend that you schedule your follow up appointment as recommended to ensure complete treatment of you illness or injury. If you are unable to obtain follow up care and continue to have a problem, or if your condition worsens, we recommend that you return to the ED. 2. We are not able to safely determine your condition over the phone nor are we able to give sound medical advice over the phone. For these safety reasons, if you call for medical advice we will ask you to come to the ED for further evaluation. 3. If you have any questions regarding these discharge instructions please call the ED at [phone]. SAFETY INFORMATION: In the interest of safety, wellness, and injury prevention; we encourage you to wear your sealbelt, if you smoke; quite smoking, and we encourage family to use a protect irma helmet for bicycling and other sporting events that present an increased risk for head injury. IF YOUR SYMPTOMS WORSEN OR NEW SYMPTOMS DEVELOP, OR YOU HAVE CONCERNS ABOUT YOUR CONDITION; OR IF YOUR CONDITION WORSENS WHILE YOU ARE WAITING FOR YOUR FOLLOW UP APPOINTMENT; EITHER CONTACT YOUR PRIMARY CARE DOCTOR, THE PHYSICIAN WHOSE NAME AND NUMBER YOU WERE GIVEN, OR RETURN TO THE ED IMMEDIATELY. Scripts Penicillin V Potassium (PENICILLIN V POTASSIUM) 500 Mg Tablet 1 TAB PO QID for 10 Days, #40 TAB 0 Refills Prov: MYESHA AYALA APRN 01/02/21 MYESHA AYALA APRN Jan 02, 2021 00:26
[2021-01-02] MEDS ORDERED: PENI500T PO (00:45)
[2021-01-02] MEDS ORDERED: HYDROmorphone 2 MG/ML VIAL IM ONE (01:00)
[2021-01-02] MEDS ORDERED: PENICILLIN V K 250 MG TABLET. PO ONE (01:00)
[2021-01-02] MEDS ORDERED: BENZOCAINE ONE 20% MUCOSAL SPRAY. MM (01:00)
[2021-01-02 02:00] VITALS: BP 168/73
[2021-01-02] MEDS ORDERED: ONDANSETRON ODT 4 MG TAB.RAPDIS. ONE (02:13)
[2021-01-02] MEDS ORDERED: ONDANSETRON ODT 4 MG TAB.RAPDIS. PO ONE (02:30)
== END 2021-01-02 03:44 | disposition home or self-care (01) ==
LOC: ER 23:51
DX: K08.89 Other specified disorders of teeth and supporting structures (principal); E78.00 Pure hypercholesterolemia, unspecified; I10 Essential (primary) hypertension; E11.40 Type 2 diabetes mellitus with diabetic neuropathy, unspecified; G89.29 Other chronic pain; F17.200 Nicotine dependence, unspecified, uncomplicated; Z88.5 Allergy status to narcotic agent; Z88.8 Allergy status to other drugs, medicaments and biological substances
CPT/HCPCS: 82962; 96372; 99284; J1170

== ENCOUNTER 2021-02-14 17:30 | Emergency (ER) | payer OTHER ==
[~2021-02-14] VITALS: Ht 162.6 cm; Wt 94.0 kg
[~2021-02-14 17:30] MED LIST changes: +PENI500T PO
--- NOTE | 2021-02-14 18:26 | EKG ---
[facility] [address] [place] [address] Test Date: 2021-02-14 Test Time: 17:59:59 Pat Name: KEKE ADAM Department: Room: Gender: F [employer] Faculty Member: : 1970 Requested By: TOM WEBBER Order Number: [id number] Reading MD: Miles Hernandes Measurements Intervals [place] Rate: 80 P: 40 OR: 150 QRS: 28 QRSD: 72 T: 34 QT: 356 QTc: 414 Interpretive Statements SINUS RHYTHM Electronically Signed On 02-16-2021 10:21:47 LUNCHROOM OPERATOR by Miles Hernandes
--- NOTE | 2021-02-14 18:27 | PHYS DOC ---
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 She denies injury. Patient denies shortness of air, abdominal pain, nausea, vomiting weakness, loss of bowel bladder, fever or neck pain, fall and, headache, dizziness, vision change.. The pain a 7 out of 10 most of the time. She is taking Tylenol or hydrocodone. Patient has a history of smoking, high cholesterol, hypertension, diabetes, anxiety, sleep apnea, cardiac cath in November 2019. (JOANNA WEBBER [employer]OLLEY WORKER) Review of Systems: Review of Systems: Constitutional: Denies fever or chills. [] Eyes: Denies change in visual acuity. [] HENT: Denies nasal congestion or sore throat. [] Respiratory: Denies cough or shortness of breath. [] Cardiovascular: + Intermittent left chest pain or denies edema. [] GI: Denies abdominal pain, nausea, vomiting, bloody stools or diarrhea. [] : Denies dysuria. [] Musculoskeletal: + Left lower back pain into the left leg or denies joint pain. [] Integument: Denies rash. [] Neurologic: Denies headache, focal weakness or sensory changes. [] Endocrine: Denies polyuria or polydipsia. [] Lymphatic: Denies swollen glands. [] Psychiatric: Denies depression or anxiety. [] (JOANNA WEBBER [employer]OLLEY WORKER) Heart Score: C/O Chest Pain: Yes HEART Score for Chest Pain: HEART Score for Chest Pain Response (Comments) Value History Slighlty/Non-Suspicious 0 ECG Normal 0 Age >45 - < 65 1 Risk Factors >3 Risk Factors or Hx CAD 2 Troponin < Normal Limit 0 Total 3 Risk Factors: Risk Factors: DM, Current or recent (<one month) smoker, HTN, HLP, family history of CAD, obesity. Risk Scores: Score 0 - 3: 2.5% MACE over next 6 weeks - Discharge Home Score 4 - 6: 20.3% MACE over next 6 weeks - Admit for Clinical Observation Score 7 - 10: 72.7% MACE over next 6 weeks - Early Invasive Strategies (JOANNA WEBBER APRN) Current Medications: Current Medications Medications (Trade) Dose Ordered Sig/Isis Start Time Stop Time Status Last Admin Dose Admin Aspirin (Lane Aspirin) 325 mg 1X ONCE 02/14/21 18:30 02/14/21 18:31 Fentanyl Citrate (Fentanyl 2ml Vial) 50 mcg 1X ONCE 02/14/21 18:30 02/14/21 18:31 Methylprednisolone Sodium Succinate (SOLU-Medrol 125MG VIAL) 125 mg 1X ONCE 02/14/21 18:30 02/14/21 18:31 Sodium Chloride 1,000 ml @ 1,000 mls/hr Q1H 02/14/21 18:30 02/14/21 19:29 (JOANNA WEBBER APRN) Allergies: Allergies: Allergies Coded Allergies Type Severity Reaction Last Updated Verified ibuprofen Adverse Reaction Intermediate Nausea 11/07/15 Yes naproxen Adverse Reaction Intermediate Nausea 11/07/15 Yes (JOANNA WEBBER APRN) Physical Exam: PE: Constitutional: Well developed, well nourished, no acute distress, non-toxic appearance. [] HENT: Normocephalic, atraumatic, bilateral external ears normal, oropharynx moist, no oral exudates, nose normal. [] Eyes: PERRLA, EOMI, conjunctiva normal, no discharge. [] Neck: Normal range of motion, no tenderness, supple, no stridor. [] Cardiovascular:Heart rate regular rhythm, no murmur [] Lungs & Thorax: Bilateral breath sounds clear to auscultation [] Abdomen: Bowel sounds normal, soft, no tenderness, no masses, no pulsatile masses. [] Skin: Warm, dry, no erythema, no rash. [] Back: No tenderness, no CVA tenderness. [] Extremities: No tenderness, no cyanosis, no clubbing, ROM intact, no edema. [] Neurologic: Alert and oriented X 3, normal motor function, normal sensory function, no focal deficits noted. [] Psychologic: Affect normal, judgement normal, mood normal. [ Normal physical exam] (JOANNA WEBBER APRN) PE: Constitutional: Well developed, well nourished, no acute distress, non-toxic appearance HENT: Normocephalic, atraumatic Eyes: Conjunctiva normal, no discharge Neck: Normal range of motion, supple Lungs & Thorax: No respiratory distress, equal chest rise and fall Abdomen: Soft, no tenderness Skin: Warm, dry, no erythema, no rash Back: No midline tenderness, left paraspinal tenderness to lumbar region extending to buttocks, no CVA tenderness Extremities: No tenderness, ROM intact, no edema Neurologic: Alert and oriented X 3, no focal deficits noted Psychologic: Affect normal, judgment normal (TERRIE GLASGOW DO) Current Patient Data: Vital Signs: Vital Signs Date Time Temp Pulse Resp B/P (MAP) Pulse Ox O2 Delivery O2 Flow Rate FiO2 02/14/21 18:02 98.9 84 20 175/84 (114) 100 Room Air 98.9 (JOANNA WEBBER APRN) EKG: EK and read by Dr. Glasgow as sinus rhythm and no STEMI. (JOANNA WEBBER APRN) Radiology/Procedures: Radiology/Procedures: [] (JOANNA WEBBER APRN) Radiology/Procedures: PROCEDURE: CT LUMBAR SPINE WO CONTRAST EXAMINATION: CT of lumbar spine without IV contrast INDICATION:50 years, Female, neck pain in the lower extremities and back. TECHNIQUE: Axial CT images of the lumbar spine. Coronal and sagittal reformatted performed. COMPARISON: CT dated 08/08/2019. Exposure: One or more of the following individualized dose reduction techniques were utilized for this examination: 1. Automated exposure control 2. Adjustment of the mA and/or kV according to patient size 3. Use of iterative reconstruction technique. FINDINGS/ IMPRESSION: Chronic bilateral L4 pars defect with grade 1/2 anterolisthesis of L4 over L5, similar to prior exam. Severe degenerative disease at L5-S1 with disc space narrowing, endplate sclerosis/erosion, osteophytes and vacuum disc phenomena, similar to prior exam. The vertebral bodies are normal in height. No acute fracture or subluxation. Mild bilateral facet arthropathy at L3-4 and L4-5. Unch anged mild to moderate canal stenosis at L4-5. Similar severe bilateral neuroforaminal narrowing at L4-5, likely encroaching bilateral L4 nerve roots. 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 Visualized abdominal structures demonstrate 3 mm nonobstructing calculus in the upper pole right kidney. Moderate aortoiliac atherosclerotic calcifications wit hout dilation. Electronically signed by: Mary Ramos MD (02/14/2021 9:00 PM) [facility] (TERRIE GLASGOW DO) Course & Med Decision Making: Course & Med Decision Making Pertinent Labs and Imaging studies reviewed. (See chart for details) See HPI. Alert and oriented x4. Ambulatory steady gait. Speaks in full clear sentences. skin pink warm and dry. No peripheral edema. Sensations are intact. Ambulatory with a steady gait. Skin pink warm and dry. Cap refill less than 2 seconds. 2044: Signed out to Dr. Glasgow. Awaiting radiology reading for CT lumbar and chest x-ray. [] (JOANNA WEBBER APRN) Course & Med Decision Making 2100-signout received from Joanna VAZQUEZ for patient with low back pain radiating down left leg and also report of atypical chest pain. Patient pending repeat troponin and CT lumbar spine. Repeat troponin within normal limits. CT lumbar spine with notation of stenosis without acute fracture. Patient seen and evaluated by myself. Patient symptoms more consistent with sciatica. Patient reports this is chronic in nature. Symptomatic treatment continued. Patient stable for discharge with outpatient follow-up with PCP/pain management. Pain management referral provided. Discussed findings and plan with patient, who acknowledges understanding and agreement. (TERRIE GLASGOW DO) Dragon Disclaimer: Jenny Disclaimer: This electronic medical record was generated, in whole or in part, using a voice recognition dictation system. (JOANNA WEBBER APRN) Departure Departure Impression: Primary Impression: Acute exacerbation of chronic low back pain Additional Impressions: Sciatica Qualified Codes: M54.32 - Sciatica, left side Atypical chest pain Disposition: HOME / SELF CARE / HOMELESS Condition: STABLE Referrals: NI VALENZUELA DO (PCP) YAMIL TORREZ MD Patient Instructions: Chest Pain (Nonspecific), [id number], Chronic Back Pain, Sciatica, [id number] Scripts Orphenadrine Citrate (ORPHENADRINE CITRATE) 100 Mg Tablet.er 100 MG PO BID PRN for MUSCLE PAIN, #14 TAB Prov: TERRIE GLASGOW DO 02/14/21 Oxycodone HCl/Acetaminophen (Percocet 5-325 mg Tablet) 1 Each Tablet 0.5-1 TAB PO Q6HRS PRN for PAIN MDD 4 Tablet(s), #10 TAB 0 Refills Prov: TERRIE GLASGOW DO 02/14/21 Prednisone (PREDNISONE) 20 Mg Tablet 2 TAB PO DAILY for 4 Days, #8 TAB Start this prescription tomorrow, 02/15/21 Prov: TERRIE GLASGOW DO 02/14/21 Attending Signature Attending Signature I have personally interviewed and examined the patient. All charts, labs, and imaging studies were reviewed. I agree with the PA/DEPUTY COMMISSIONER's findings, exam, and plan. (TERRIE GLASGOW DO) JOANNA WEBBER APRN Feb 14, 2021 18:27 TERRIE GLASGOW DO Feb 14, 2021 21:55
[2021-02-14] MEDS ORDERED: ASPIRIN 325 MG TABLET PO ONE (18:30)
[2021-02-14] MEDS ORDERED: IV NORMAL SALINE 1000ML BAG 1,000 ML IV SCH (18:30)
[2021-02-14] MEDS ORDERED: methylPREDNISolone SOD SUCC PF 125 MG/2 ML VIAL. IV ONE (18:30)
[2021-02-14] MEDS ORDERED: fentaNYL PF VIAL 100 MCG/2 ML VIAL IVP ONE (18:30)
[2021-02-14 19:04] LABS: BASO % 0 % (0-3); EOS # 0.1 x10^3/uL (0.0-0.7); EOS % 3 % (0-3); HEMATOCRIT 40.4 % (36.0-47.0); HEMOGLOBIN 13.3 g/dL (12.0-15.5); LYMPH # 3.7 x10^3/uL (1.0-4.8); LYMPH % 65 % (24-48); MEAN CORPUSCULAR HEMOGLOBIN 30 pg (25-35); MEAN CORPUSCULAR HGB CONC 33 g/dL (31-37); MEAN CORPUSCULAR VOLUME 92 fL (79-100); MONO # 0.4 x10^3/uL (0.0-1.1); MONO % 7 % (0-9); NEUT # 1.5 x10^3/uL (1.8-7.7); NEUT % 26 % (31-73); PLATELET COUNT 315 x10^3/uL (140-400); RED BLOOD COUNT 4.41 x10^6/uL (3.50-5.40); RED CELL DISTRIBUTION WIDTH 14.2 % (11.5-14.5); WHITE BLOOD COUNT 5.7 x10^3/uL (4.0-11.0)
[2021-02-14 19:07] LABS: CALCIUM 8.7 mg/dL (8.5-10.1); CREATININE 0.9 mg/dL (0.6-1.0); GFR 79.6
[2021-02-14 19:12] LABS: ALBUMIN 3.6 g/dL (3.4-5.0); ALBUMIN/GLOBULIN RATIO 0.9 (1.0-1.7); MAGNESIUM 2.2 mg/dL (1.8-2.4); TOTAL BILIRUBIN 0.2 mg/dL (0.2-1.0); TOTAL PROTEIN 7.6 g/dL (6.4-8.2)
[2021-02-14 20:04] LABS: % ATYL 14 % (0-0); % EOS 2 % (0-5); % LYMPHS 57 % (24-48); % MONOS 7 % (0-10); % SEGS 20 % (35-66)
[2021-02-14 20:05] LABS: PLT ESTIMATE ADEQUATE (ADEQUATE)
[2021-02-14 20:11] LABS: BILIRUBIN,URINE NEGATIVE (NEG); CLARITY,URINE CLEAR; COLOR,URINE YELLOW; NITRITE,URINE NEGATIVE (NEG); PH,URINE 7.5 (<5.0-8.0); PROTEIN,URINE NEGATIVE (NEG-TRACE); UROBILINOGEN,URINE 0.2 mg/dL (0.2 mg/dL)
[2021-02-14 20:18] LABS: BACTERIA,URINE 0 /HPF (0-FEW); WBC,URINE OCC /HPF (0-4)
[2021-02-14 20:27] LABS: BARBITURATES NEG (NEG); BENZODIAZEPINES NEG (NEG); CANNABINOIDS NEG (NEG); COCAINE NEG (NEG); METHADONE NEG (NEG); OPIATES NEG (NEG); PHENCYCLIDINE NEG (NEG)
[2021-02-14 20:28] LABS: AMPHETAMINE/METHAMPHETAMINE NEG (NEG)
--- NOTE | 2021-02-14 21:02 | RAD ---
EXAMINATION: CT of lumbar spine without IV contrast INDICATION:50 years, Female, neck pain in the lower extremities and back. TECHNIQUE: Axial CT images of the lumbar spine. Coronal and sagittal reformatted performed. COMPARISON: CT dated 08/08/2019. Exposure: One or more of the following individualized dose reduction techniques were utilized for thi s examination: 1. Automated exposure control 2. Adjustment of the mA and/or kV according to patient size 3. Use of iterative reconstruction technique. FINDINGS/ IMPRESSION: Chronic bilateral L4 pars defect with grade 1/2 anterolisthesis of L4 over L5, similar to prior exam. Severe degenerative disease at L5-S1 with disc space narrowing, endplate sclerosis/erosion, osteophy sean and vacuum disc phenomena, similar to prior exam. The vertebral bodies are normal in height. No a cute fracture or subluxation. Mild bilateral facet arthropathy at L3-4 and L4-5. Unchanged mild to mo derate canal stenosis at L4-5. Similar severe bilateral neuroforaminal narrowing at L4-5, likely encr oaching bilateral L4 nerve roots. Severe bilateral sacroiliac joints osteoarthritis with vacuum pheno gordon. Visualized abdominal structures demonstrate 3 mm nonobstructing calculus in the upper pole right kidn ey. Moderate aortoiliac atherosclerotic calcifications without dilation. Electronically signed by: Mary Ramos MD (02/14/2021 9:00 PM) [facility]
[2021-02-14] MEDS ORDERED: PRED20TA PO (22:06)
[2021-02-14] MEDS ORDERED: ORPH100T PO (22:06)
[2021-02-14] MEDS ORDERED: OXYC-325 PO (22:06)
[2021-02-14 22:28] VITALS: BP 139/83
[2021-02-14] MEDS: oxyCODONE/APAP 5/325 1 TAB TABLET PO ONE ×2 (22:30→22:38)
--- NOTE | 2021-02-15 07:59 | RAD ---
EXAMINATION: Chest radiograph. VIEWS: 1 COMPARISON: None INDICATION:50 years, Female, chest pain. FINDINGS: Normal cardiomediastinal silhouette. No focal consolidation. No pleural effusion or pneumothorax. No acute osseous process. IMPRESSION: No acute cardiopulmonary process. Electronically signed by: Mary Ramos MD (02/15/2021 7:57 AM) [facility]
== END 2021-02-14 22:38 | disposition home or self-care (01) ==
LOC: ER 17:30
DX: G89.29 Other chronic pain (principal); M54.42 Lumbago with sciatica, left side; R07.89 Other chest pain; E11.9 Type 2 diabetes mellitus without complications; E78.00 Pure hypercholesterolemia, unspecified; I10 Essential (primary) hypertension; Z88.5 Allergy status to narcotic agent; Z88.8 Allergy status to other drugs, medicaments and biological substances
CPT/HCPCS: 36415; 71045; 72131; 80053; 80307; 81001; 81025; 83690; 83735; 83880; 84484; 85007; 85025; 93005; 96361; 96374; 96375; 99285; J2930; J3010; J7030

== ENCOUNTER 2021-04-28 03:55 | Emergency (ER) | payer OTHER ==
[~2021-04-28] VITALS: Ht 162.6 cm; Wt 86.4 kg
[~2021-04-28 03:55] MED LIST changes: +ORPH100T PO; +OXYC-325 PO
--- NOTE | 2021-04-28 04:55 | ED.ADGEN ---
Past Medical History Past Medical History: Anxiety, Diabetes-Type II, High Cholesterol, Hypertension Additional Past Medical Histor: SLEEP APNEA, CHRONIC BACK PAIN Past Surgical History: No Surgical History Additional Past Surgical Histo: HEART CATH 12/07/19 Smoking Status: Current Every Day Smoker Alcohol Use: Occasionally Drug Use: Marijuana General Adult EDM: Chief Complaint: ABDOMINAL PAIN HPI: HPI: Patient is a 51 year old female coming in for abdominal pain for the past 3 to 4 days. States he got worse tonight and had 1 episode of emesis prior to arrival. Patient states she feels a "gurgling" in her upper abdomen. Also has low abdominal pain. Has noticed a foul smell in her urine. States she took milk of magnesia couple days ago and since had loose stools. Denies any abdominal surgeries. Took a hydrocodone about 4 hours prior to arrival. Review of Systems: Review of Systems: All other systems within normal limits except for as noted in the HPI Current Medications: Current Medications Medications (Trade) Dose Ordered Sig/Isis Start Time Stop Time Status Last Admin Dose Admin Info (CONTRAST GIVEN -- Rx MONITORING) 1 each PRN DAILY PRN 04/28/21 06:30 04/30/21 06:29 Iohexol (Omnipaque 300 Mg/ml) 75 ml 1X ONCE 04/28/21 07:00 04/28/21 07:01 DC 04/28/21 07:23 75 ML Lorazepam (Ativan Inj) 1 mg 1X ONCE 04/28/21 07:00 04/28/21 07:01 DC 04/28/21 06:38 1 MG Ondansetron HCl (Zofran Odt) 4 mg 1X ONCE 04/28/21 10:15 04/28/21 10:16 UNV Ondansetron HCl (Zofran) 4 mg 1X ONCE 04/28/21 05:30 04/28/21 05:31 DC 04/28/21 05:30 4 MG Sodium Chloride 1,000 ml @ 1,000 mls/hr 1X ONCE 04/28/21 05:30 04/28/21 06:29 DC 04/28/21 05:30 1,000 MLS/HR Allergies: Allergies: Allergies Coded Allergies Type Severity Reaction Last Updated Verified ibuprofen Adverse Reaction Intermediate Nausea 11/07/15 Yes naproxen Adverse Reaction Intermediate Nausea 11/07/15 Yes Physical Exam: PE: Constitutional: Well developed, well nourished, no acute distress, non-toxic appearance. [] HENT: Normocephalic, atraumatic, bilateral external ears normal, nose normal. [] Eyes: PERRLA, conjunctiva normal, no discharge. [] Neck: No rigidity, supple, no stridor. [] Cardiovascular: Regular rate and rhythm, brisk cap refill [] Lungs & Thorax: Non labored symmetric respirations, no tachypnea or respiratory distress [] Abdomen: Soft, nondistended, negative Brito sign, no McBurney point tenderness, no guarding or rebound. Skin: Warm, dry, no erythema, no rash. [] Back: Unremarkable Extremities: No deformities, range of motion grossly intact, no lower extremity edema [] Neurologic: Alert and oriented X 3, no focal deficits noted. [] Psychologic: Affect normal, judgement normal, mood normal. [] Current Patient Data: Labs: Laboratory Tests Test 04/28/21 04:30 04/28/21 04:33 04/28/21 04:40 04/28/21 05:21 Urine Collection Type Unknown Urine Color Yellow Urine Clarity Clear Urine pH 6.0 (<5.0-8.0) Urine Specific Fossil >=1.030 (1.000-1.030) Urine Protein Negative mg/dL (NEG-TRACE) Urine Glucose (UA) Negative mg/dL (NEG) Urine Ketones (Stick) Negative mg/dL (NEG) Urine Blood Moderate (NEG) Urine Nitrite Negative (NEG) Urine Bilirubin Negative (NEG) Urine Urobilinogen Dipstick 0.2 mg/dL (0.2 mg/dL) Urine Leukocyte Esterase Negative (NEG) Urine RBC 1-2 /HPF (0-2) Urine WBC Occ /HPF (0-4) Urine Squamous Epithelial Cells Mod /LPF Urine Bacteria Few /HPF (0-FEW) Urine Mucus Mod /LPF POC Urine HCG, Qualitative Hcg negative (Negative) Glucose (Fingerstick) 143 mg/dL (70-99) H White Blood Count 6.6 x10^3/uL (4.0-11.0) Red Blood Count 4.38 x10^6/uL (3.50-5.40) Hemoglobin 13.6 g/dL (12.0-15.5) Hematocrit 40.1 % (36.0-47.0) Mean Corpuscular Volume 92 fL (79-100) Mean Corpuscular Hemoglobin 31 pg (25-35) Mean Corpuscular Hemoglobin Concent 34 g/dL (31-37) Red Cell Distribution Width 14.1 % (11.5-14.5) Platelet Count 305 x10^3/uL (140-400) Neutrophils (%) (Auto) 47 % (31-73) Lymphocytes (%) (Auto) 44 % (24-48) Monocytes (%) (Auto) 7 % (0-9) Eosinophils (%) (Auto) 1 % (0-3) Basophils (%) (Auto) 0 % (0-3) Neutrophils # (Auto) 3.1 x10^3/uL (1.8-7.7) Lymphocytes # (Auto) 2.9 x10^3/uL (1.0-4.8) Monocytes # (Auto) 0.5 x10^3/uL (0.0-1.1) Eosinophils # (Auto) 0.1 x10^3/uL (0.0-0.7) Basophils # (Auto) 0.0 x10^3/uL (0.0-0.2) Sodium Level 144 mmol/L (136-145) Potassium Level 3.3 mmol/L (3.5-5.1) L Chloride Level 104 mmol/L (98-107) Carbon Dioxide Level 26 mmol/L (21-32) Anion Gap 14 (6-14) Blood Urea Nitrogen 7 mg/dL (7-20) Creatinine 1.1 mg/dL (0.6-1.0) H Estimated GFR (Cockcroft-Gault) 62.9 BUN/Creatinine Ratio 6 (6-20) Glucose Level 126 mg/dL (70-99) H Lactic Acid Level 1.3 mmol/L (0.4-2.0) Calcium Level 8.8 mg/dL (8.5-10.1) Total Bilirubin 0.4 mg/dL (0.2-1.0) Aspartate Amino Transferase (AST) 16 U/L (15-37) Alanine Aminotransferase (ALT) 26 U/L (14-59) Alkaline Phosphatase 49 U/L (46-116) Total Protein 7.8 g/dL (6.4-8.2) Albumin 3.8 g/dL (3.4-5.0) Albumin/Globulin Ratio 1.0 (1.0-1.7) Lipase 19 U/L (73-393) L Laboratory Tests 04/28/21 05:21 Laboratory Tests 04/28/21 05:21 Vital Signs: Vital Signs Date Time Temp Pulse Resp B/P (MAP) Pulse Ox O2 Delivery O2 Flow Rate FiO2 04/28/21 06:55 74 12 124/61 (82) 95 Room Air 04/28/21 03:58 97.9 97.9 EKG: EKG: [] Heart Score: C/O Chest Pain: No Risk Factors: Risk Factors: DM, Current or recent (<one month) smoker, HTN, HLP, family history of CAD, obesity. Risk Scores: Score 0 - 3: 2.5% MACE over next 6 weeks - Discharge Home Score 4 - 6: 20.3% MACE over next 6 weeks - Admit for Clinical Observation Score 7 - 10: 72.7% MACE over next 6 weeks - Early Invasive Strategies Radiology/Procedures: Radiology/Procedures: [] Course & Med Decision Making: Course & Med Decision Making 0600: Dr. Roberts assuming care from Dr. Lai. I agree with her history of present illness and physical examination as documented above. In brief, 51-year-old female presenting for generalized abdominal discomfort in association with vomiting and diarrhea over the past 3 days. She has had a few episodes of vomiting and a few episodes of watery loose stool each day over that interval. Abdominal discomfort is worst over the bilateral lower quadrants, is crampy and intermittent. She denies associated fevers, hematemesis, hematochezia or melena, upper respiratory congestion/rhinorrhea, cough, sore throat, shortness of breath or chest pain of any kind, flank pain, midline back pain, recent unusual travel, unusual foods, sick contacts with similar symptoms, recent antibiotic use. Some delay in care due to nauseated patient who told me that she was "having a panic attack." This delayed her CT scan for some time. She was given Ativan and felt better. Labs and imaging are without evidence of acute process aside from very mildly low serum potassium which will be addressed with oral repletion. Patient feels better after medications and fluids here in the emergency department. Tolerating oral fluids. Will discharge home with Zofran for nausea and Bentyl and Tylenol for discomfort. She is to follow-up closely with primary care in the next 1 to 2 days and understands that if she feels worse instead of better or develops other new symptoms of concern that she is to return to the emergency department right away for reevaluation. All questions are answered. Jenny Disclaimer: Jenny Disclaimer: This electronic medical record was generated, in whole or in part, using a voice recognition dictation system. Departure Departure Impression: Primary Impression: Acute vomiting Additional Impression: Acute diarrhea Disposition: HOME / SELF CARE / HOMELESS Condition: IMPROVED Referrals: NI VALENZUELA DO (PCP) Patient Instructions: Diarrhea, Nausea and Vomiting Additional Instructions: Follow-up very closely with your primary care doctor in the office in the next 2 to 4 days for reevaluation of your symptoms and a discussion of next best steps in care. Drink plenty of fluids to stay hydrated and get plenty of rest. Take a Zofran tablet underneath your tongue every 8 hours as needed for nausea and/or vomiting (let it dissolve). Take a 500 mg extra Tylenol pill every 6 hours as needed for discomfort. You may also try a 10 mg Bentyl pill every 6 hours as needed for discomfort. Return to the emergency department right away for worsening symptoms of any kind or with any other new symptoms of concern. Scripts Ondansetron (ONDANSETRON ODT) 4 Mg Tab.rapdis 1 TAB PO PRN Q6-8HRS, #10 TAB Prov: NATHALIA ROBERTS MD 04/28/21 Dicyclomine Hcl (DICYCLOMINE HCL) 10 Mg Capsule 1 CAP PO QIDPRN PRN for abd pain, #14 CAP 11 Refills Prov: NATHALIA ROBERTS MD 04/28/21 Acetaminophen (TYLENOL EXTRA STRENGTH) 500 Mg Tablet 500 MG PO Q6H for 5 Days, #40 TAB Prov: NATHALIA ROBERTS MD 04/28/21 Problem Qualifiers TONY LAI MD Apr 28, 2021 04:55 NATHALIA ROBERTS MD Apr 28, 2021 10:37
[2021-04-28 05:03] LABS: BILIRUBIN,URINE NEGATIVE (NEG); CLARITY,URINE CLEAR; COLOR,URINE YELLOW; NITRITE,URINE NEGATIVE (NEG); PROTEIN,URINE NEGATIVE (NEG-TRACE); UROBILINOGEN,URINE 0.2 mg/dL (0.2 mg/dL)
[2021-04-28 05:05] LABS: BACTERIA,URINE FEW /HPF (0-FEW); WBC,URINE OCC /HPF (0-4)
[2021-04-28] MEDS ORDERED: ONDANSETRON PF 4 MG/2 ML VIAL. IVP ONE (05:30)
[2021-04-28] MEDS ORDERED: IV NORMAL SALINE 1000ML BAG 1,000 ML IV ONE (05:30)
[2021-04-28 05:44] LABS: BASO % 0 % (0-3); CALCIUM 8.8 mg/dL (8.5-10.1); CREATININE 1.1 mg/dL (0.6-1.0); EOS # 0.1 x10^3/uL (0.0-0.7); EOS % 1 % (0-3); GFR 62.9; HEMATOCRIT 40.1 % (36.0-47.0); HEMOGLOBIN 13.6 g/dL (12.0-15.5); LYMPH # 2.9 x10^3/uL (1.0-4.8); LYMPH % 44 % (24-48); MEAN CORPUSCULAR HEMOGLOBIN 31 pg (25-35); MEAN CORPUSCULAR HGB CONC 34 g/dL (31-37); MEAN CORPUSCULAR VOLUME 92 fL (79-100); MONO # 0.5 x10^3/uL (0.0-1.1); MONO % 7 % (0-9); NEUT # 3.1 x10^3/uL (1.8-7.7); NEUT % 47 % (31-73); PLATELET COUNT 305 x10^3/uL (140-400); POTASSIUM 3.3 mmol/L (3.5-5.1); RED BLOOD COUNT 4.38 x10^6/uL (3.50-5.40); RED CELL DISTRIBUTION WIDTH 14.1 % (11.5-14.5); WHITE BLOOD COUNT 6.6 x10^3/uL (4.0-11.0)
[2021-04-28 05:50] LABS: ALBUMIN 3.8 g/dL (3.4-5.0); TOTAL BILIRUBIN 0.4 mg/dL (0.2-1.0); TOTAL PROTEIN 7.8 g/dL (6.4-8.2)
[2021-04-28] MEDS ORDERED: CONTRAST GIVEN. MC PRN (06:30)
[2021-04-28] MEDS ORDERED: IOHEXOL 300 MG/ML 100ML VIAL. IV ONE (07:00)
--- NOTE | 2021-04-28 07:36 | RAD ---
CT scan of the abdomen and pelvis with contrast 04/28/2021 CLINICAL HISTORY: Lower abdominal pain. TECHNIQUE: After the intravenous administration of 75 cc of Omnipaque 300 only, contiguous, 5 mm axia l sections were obtained through the abdomen and pelvis. One or more of the following individualized dose reduction techniques were utilized for this study: 1. Automated exposure control. 2. Adjustment of the mA and/or kV according to patient size. 3. Use of iterative reconstruction technique. FINDINGS: Comparison study is dated 08/08/2019. Images through the lung bases demonstrate minimal dependent subsegmental atelectasis bilaterally. Rounded low-attenuation lesions are seen involving the left lobe of the liver which measure 1.2 and 2 .1 cm in size. These likely represent hepatic cysts. Decreased attenuation liver parenchyma seen cons istent with fatty infiltration. The spleen, pancreas, adrenal glands and left kidney are within neelima l limits. A 4 mm nonobstructing calculus is seen involving the superior pole right kidney. Atherosclerotic calcification abdominal aorta is seen. The abdominal aorta tapers normally. The gallb ladder is likely contracted. No free fluid or free air is within the abdomen. There is no evidence of bowel obstruction. The appendix is well-visualized and is within normal limits. Images through the pelvis demonstrate the urinary bladder distended with urine. The uterus is enlarge d. Several enhancing mass lesions are seen scattered throughout the uterus consistent with fibroids. These measure 1 to 2 cm in size. Calculations are seen within the pelvis consistent with phleboliths. No adnexal mass is seen. No free fluid is noted. Minimal S-shaped curvature of the thoracolumbar spi ne is seen. Bilateral spondylolysis is seen at L4. Grade 2 spondylolisthesis of L4 in relation L5 is seen. Degenerative changes are seen lower lumbar spine. IMPRESSION: No acute abnormality is seen. Electronically signed by: Doyle Holden MD (04/28/2021 7:33 AM) [id number]
[2021-04-28] MEDS ORDERED: ONDANSETRON ODT 4 MG TAB.RAPDIS. PO ONE (10:15)
[2021-04-28] MEDS ORDERED: ONDANSETRON ODT 4 MG TAB.RAPDIS. ONE (10:16)
[2021-04-28 10:34] VITALS: BP 109/57
[2021-04-28] MEDS ORDERED: ACET500T33 PO (10:37)
[2021-04-28] MEDS ORDERED: ONDA4TAB12 PO (10:37)
[2021-04-28] MEDS ORDERED: DICY10CA3 PO (10:37)
[2021-04-28] MEDS ORDERED: POTASSIUM CHLORIDE 20 MEQ TABLET.ER. PO ONE (10:45)
== END 2021-04-28 11:01 | disposition home or self-care (01) ==
LOC: ER 03:55
DX: R11.10 Vomiting, unspecified (principal); R19.7 Diarrhea, unspecified; R10.9 Unspecified abdominal pain; E11.9 Type 2 diabetes mellitus without complications; E78.00 Pure hypercholesterolemia, unspecified; I10 Essential (primary) hypertension; G89.29 Other chronic pain; F17.200 Nicotine dependence, unspecified, uncomplicated; Z88.5 Allergy status to narcotic agent; Z88.8 Allergy status to other drugs, medicaments and biological substances
CPT/HCPCS: 36415; 74177; 80053; 81001; 81025; 82962; 83605; 83690; 85025; 96361; 96374; 96375; 99285; J2060; J2405; J7030; Q9967

== ENCOUNTER 2021-06-30 02:01 | Emergency (ER) | payer OTHER ==
[~2021-06-30] VITALS: Ht 162.6 cm; Wt 88.4 kg
[~2021-06-30 02:01] MED LIST changes: +ACET500T33 PO; +DICY10CA3 PO
[2021-06-30 03:00] VITALS: BP 136/64
--- NOTE | 2021-06-30 03:11 | PHYS DOC ---
Past Medical History Past Medical History: Anxiety, Diabetes-Type II, High Cholesterol, Hypertension Additional Past Medical Histor: CHRONIC BACK PAIN, SLEEP APNEA Past Surgical History: Additional Past Surgical Histo: HEART CATH 12/07/19 Smoking Status: Current Every Day Smoker Alcohol Use: None Drug Use: Marijuana General Adult EDM: Chief Complaint: HYPERTENSION HPI: HPI: Patient is a 51 year old F who presents with concerns about her blood pressure being elevated in the evenings, after she takes her cholesterol medication, suspects that the cholesterol medication is causing her blood pressure to go up. Patient is also complaining of several weeks of left-sided weakness but has no obvious weakness on presentation, patient says the symptom comes and goes and right now is not bothering her. Patient says she told her primary doctor about this and at the time thought it might be a problem with her sinuses and was prescribed antibiotics which she says she took, had some relief but the symptoms did not go away fully. Patient also thought this might be secondary to anxiety and apparently called 911 more than 1 time tonight and kept hanging up. On arrival the patient is very calm, no acute distress, stable vital signs, no obvious asymmetry to face or difficulty using her extremities. Review of Systems: Review of Systems: Constitutional: Denies fever or chills. [] Eyes: Denies change in visual acuity. [] HENT: Denies nasal congestion or sore throat. [] Respiratory: Denies cough or shortness of breath. [] Cardiovascular: Denies chest pain or edema. [] GI: Denies abdominal pain, nausea, vomiting, bloody stools or diarrhea. [] : Denies dysuria. [] Musculoskeletal: Denies back pain or joint pain. [] Integument: Denies rash. [] Neurologic: Denies headache, c/o weakness to the L side of her body. Endocrine: Denies polyuria or polydipsia. [] Lymphatic: Denies swollen glands. [] Psychiatric: Denies depression or anxiety. [] Heart Score: C/O Chest Pain: No Risk Factors: Risk Factors: DM, Current or recent (<one month) smoker, HTN, HLP, family history of CAD, obesity. Risk Scores: Score 0 - 3: 2.5% MACE over next 6 weeks - Discharge Home Score 4 - 6: 20.3% MACE over next 6 weeks - Admit for Clinical Observation Score 7 - 10: 72.7% MACE over next 6 weeks - Early Invasive Strategies Allergies: Allergies: Allergies Coded Allergies Type Severity Reaction Last Updated Verified ibuprofen Adverse Reaction Intermediate Nausea 11/07/15 Yes naproxen Adverse Reaction Intermediate Nausea 11/07/15 Yes Physical Exam: PE: Constitutional: Well developed, well nourished, no acute distress, non-toxic appearance. [] HENT: Normocephalic, atraumatic, bilateral external ears normal, oropharynx moist, no oral exudates, nose normal. [] Eyes: PERRLA, EOMI, conjunctiva normal, no discharge. [] Neck: Normal range of motion, no tenderness, supple, no stridor. [] Cardiovascular:Heart rate regular rhythm, no murmur [] Lungs & Thorax: Bilateral breath sounds clear to auscultation [] Abdomen: Bowel sounds normal, soft, no tenderness, no masses, no pulsatile masses. [] Skin: Warm, dry, no erythema, no rash. [] Back: No tenderness, no CVA tenderness. [] Extremities: No tenderness, no cyanosis, no clubbing, ROM intact, no edema. [] Neurologic: Alert and oriented X 3, normal motor function, normal sensory function, no focal deficits noted. [] Psychologic: Affect normal, judgement normal, mood normal. [] Current Patient Data: Vital Signs: Vital Signs Date Time Temp Pulse Resp B/P (MAP) Pulse Ox O2 Delivery O2 Flow Rate FiO2 06/30/21 02:08 98.6 77 16 142/69 (93) 99 Room Air 98.6 EKG: EKG: EKG done at 0211, normal sinus rhythm with a rate of 79, normal axis, normal intervals, no ischemic changes Radiology/Procedures: Radiology/Procedures: [] Course & Med Decision Making: Course & Med Decision Making Patient's chief complaint appears to be issues with controlling her blood pressure. Patient takes 5 mg of the medication whose name she cannot remember in the evening. Explained to the patient that the Pap may not be her cholesterol medication but rather that her blood pressure is the most elevated in the evening right before or right after she takes her blood pressure medication. I suggested that she could start taking her blood pressure medication in the morning instead and see if that improves her symptoms. I also said that she could also trial not taking her cholesterol medication for several days and see if that has any impact on her blood pressure. As far as her left-sided weakness I did not appreciate any facial droop, arm or leg weakn ess, difficulty with her walking, or other symptoms suggest an acute neurologic event. Dragon Disclaimer: Jenny Disclaimer: This electronic medical record was generated, in whole or in part, using a voice recognition dictation system. Departure Departure Impression: Primary Impression: Hypertension Qualified Codes: I10 - Essential (primary) hypertension Additional Impression: Weakness Disposition: HOME / SELF CARE / HOMELESS Condition: GOOD Referrals: UNKNOWN PCP NAME (PCP) Patient Instructions: Hypertension, Weakness, [id number] LEAH CLEARY MD June 30, 2021 03:11
== END 2021-06-30 03:27 | disposition home or self-care (01) ==
LOC: ER 02:01
DX: I10 Essential (primary) hypertension (principal); F41.9 Anxiety disorder, unspecified; F39 Unspecified mood [affective] disorder; E78.00 Pure hypercholesterolemia, unspecified; G89.29 Other chronic pain; F17.200 Nicotine dependence, unspecified, uncomplicated; Z88.6 Allergy status to analgesic agent; Z88.8 Allergy status to other drugs, medicaments and biological substances
CPT/HCPCS: 99283